=== PATIENT | female | born 1955 | race Caucasian/White ===

== ENCOUNTER 2019-10-07 10:29 | Outpatient (CLI) | payer MEDICARE, SELFPAY ==
--- NOTE | ~2019-10-07 | DEXA_ITS ---
BMD(1) Young-Adult(2) Age-Matched(3) Region (g/cm2) T-score Z-score WHO Classification L1 1.054 -0.7 0.9 Normal L2 1.021 -1.6 0.1 Osteopenia L3 0.994 -1.8 -0.1 Osteopenia L4 0.972 -1.9 -0.3 Osteopenia L1-L4 1.008 -1.5 0.1 Osteopenia Trend: L1-L4 Change vs Change vs Measured Age BMD(1) Baseline Previous Date (years) (g/cm2) (%) (%) 10/07/2019 [age] 1.008 baseline - 1 - Statistically 68% of repeat scans fall within 1SD (+- 0.010 g/cm2 for AP Spine L1-L4) 2 - [place] (Combined NHANES (ages 20-30) / [employer] (ages 20-40)) AP Spine Reference Population (v112) 3 - Matched for Age, Weight (females 25-100 kg), Ethnic 11 - World Health Organization - Definition of Osteoporosis and Osteopenia for Women: Normal = T-score at or above -1.0 SD; Osteopenia = T-score between -1.0 and -2.5 SD; Osteoporosis = T-score at or below -2.5 SD; (WHO definitions only apply when a young healthy Women reference database is used to determine T-scores.) Printed: 10/07/2019 11:27:22 AM (13.60)76:3.00:50.00:12.0 0.00:10.86 0.60x1.05 20.0:%Fat=33.2% 0.00:0.00 0.00:0.00 Filename: [id number] Scan Mode: Standard;OneScan 37.0 Altimet [id number] BMD(1) Young-Adult(2,7) Age-Matched(3) Region (g/cm2) T-score Z-score WHO Classification Neck Left 0.586 -3.2 -1.7 Osteoporosis Right 0.623 -3.0 -1.5 Osteoporosis Mean 0.605 -3.1 -1.6 Osteoporosis Difference 0.036 0.3 0.3 - Total Left 0.664 -2.7 -1.5 Osteoporosis Right 0.697 -2.5 -1.2 Osteoporosis Mean 0.681 -2.6 -1.3 Osteoporosis Difference 0.033 0.3 0.3 - Hip [place]berry Length Comparison (mm) (Right = 104.9 mm) (Mean = 104.2 mm) (Left = 106.4 mm) Trend: Total Mean Change vs Change vs Measured Age BMD(1) Baseline Previous Date (years) (g/cm2) (%) (%) 10/07/2019 64.6 0.681 baseline - 1 - Statistically 68% of repeat scans fall within 1SD (+- 0.010 g/cm2 for DualFemur Total) 2 - [place] (Combined NHANES (ages 20-30) / [employer] (ages 20-40)) Femur Reference Population (v112) 3 - Matched for Age, Weight (females 25-100 kg), Ethnic 7 - DualFemur Total T-score difference is 0.3. Asymmetry is None. 11 - World Health Organization - Definition of Osteoporosis and Osteopenia for Women: Normal = T-score at or above -1.0 SD; Osteopenia = T-score between -1.0 and -2.5 SD; Osteoporosis = T-score at or below -2.5 SD; (WHO definitions only apply when a young healthy Women reference database is used to determine T-scores.) Printed: 10/07/2019 11:27:23 AM (13.60); Filename: [id number]; Right Femur; 16.6:%Fat=33.9%; Neck Angle (deg)= 56; Scan Mode: Standard 37.0 uGy; Left Femur; 17.6:%Fat=36.7%; Neck Angle (deg)= 63; Scan Mode: Standard 37.0 uGy Issuu [id number] Dear Antonio Whelan, Your patient Kelsie Brown completed a BMD test on 10/07/2019 using the Issuu DXA System (analysis version: 13.60) manufactured by [employer]. The following summarizes the results of our evaluation. PATIENT BIOGRAPHICAL: Name: Kelsie Brown Date: 1955 Height: 63.0 in. Gender: Female
== END 2019-10-07 10:30 | disposition home or self-care (01) ==
LOC: CHSIMG 10:34
PROVIDERS: PCP Family Medicine; Visit Provider Family Medicine
DX: M81.0 Age-related osteoporosis without current pathological fracture (principal)
CPT/HCPCS: 77080

== ENCOUNTER 2020-03-02 12:39 | Emergency (ER) | payer MEDICARE, SELFPAY ==
[2020-03-02 12:40] VITALS: BP 126/67; PULSE 79; RESP 16; TEMP 36.8; O2SAT 96
[2020-03-02] MEDS: TETRACAINE HCL 0.5% OPHTH SOLN 4 ML BTL 1 DROP (13:25)
--- NOTE | 2020-03-02 13:40 | ED.GENADULT ---
HPI - General Adult General Chief complaint: Eye Problems Stated complaint: right eye dilated Source: patient and family Mode of arrival: ambulatory History of Present Illness HPI narrative: Kelsie was brought to the ED by her sister for a unilateral dilated right eye. It was first noticed by her sister 2 days ago. Since that time she has been covering it with her right hand when watching TV. Despite this she denies any pain, vision changes, nausea, vomiting, headache, chest pain, SOB, fevers or chills and trauma. Her sister contacted her PCP that told her to go to the ED. Related Data Home Medications Medication Instructions Recorded Confirmed alendronate 70 mg PO WEEKLY 03/02/20 03/02/20 lamotrigine 75 mg PO BID 03/02/20 03/02/20 lamotrigine 200 mg PO BID 03/02/20 03/02/20 phenytoin sodium extended 100 mg PO TID 03/02/20 03/02/20 zonisamide 500 mg PO DAILY 03/02/20 03/02/20 Allergies Allergy/AdvReac Type Severity Reaction Status Date / Time No Known Allergies Allergy Verified 03/02/20 13:19 Review of Systems Constitutional: Constitutional: Denies chills, Denies fever(s) and Denies weakness Eyes: Eyes: Reports as per HPI ENT: Reports system reviewed and no additional complaints, except as documented, Denies nasal congestion and Denies sore throat Comments: no rhinorrhea Cardiovascular: Cardiovascular: Reports no additional cardiovascular complaints Respiratory: Respiratory: Reports no additional respiratory complaints Gastrointestinal: Gastrointestinal: Reports no additional gastrointestinal complaints Genitourinary: Genitourinary: Reports no additional female genitourinary complaints Musculoskeletal: Musculoskeletal: Reports no additional musculoskeletal complaints Integumentary/Breasts: Skin/Breast: Reports system reviewed and no additional complaints, except as docu Neurologic: Reports system reviewed and no additional complaints, except as documented Psychiatric: Psychiatric: Reports no additional psychiatric complaints Endocrine: Endocrine: Reports no additional endocrine complaints Hematologic/Lymphatic: Hematologic/Lymphatic: Reports no additional hematologic/lymphatic complaints Allergic/Immunologic: Allergic/Immunologic: Reports no additional allergic/immunologic complaints ON LICENSE OF [facility] Family History Family History (Updated 03/02/20 @ 15:14 by Adolfo Townsend DO) Mother Glaucoma Exam Const: General: no acute distress and alert Orientation/consciousness: patient oriented x3 Limitations: No altered mental status HENMT: Other: Normocephalic, atraumatic. Eyes: Other: EOMI. Right eye had a slightly cloudy cornea, mild conjunctival injection, dilated non-reactive pupil. Tonometry was performed and showed a pressure of 52. Eye aquity was 20/40 on the left and 2070 on the right (per patient they were previously equal) Neck: Neck: normal visual inspection Resp: Effort & Inspection: normal respiratory effort, not labored, not tachypneic and no use of accessory muscles Cardio: Rate: regular rate Other: No edema Skin: General skin exam: normal color Rashes: no rashes Neuro: General: patient oriented x3, moves all extremities and CN's II-XI intact bilaterally Extrem: General: normal to inspection and no edema Psych: Mental Status: mental status grossly normal Other: Spoke very little and answered questions with one word answers. (per her sister she never went to school and is illiterate) Course Course Emergency Course: Kelsie was seen and evaluated. As PE (documented above) showed injection, cloudy cornea, decreased visual acuity, increased IOP at 52, and she had been seen covering her eye there was high concern for acute angle-closure glaucoma so Dr. Karen Tariq was contacted and recommended sending Kelsie to her clinic to be evaluated by her partner Alberto WOODS. She was given timolol eye drops and sent on her way for expert consultation. Vital Signs Vital signs: Vital Sig
[2020-03-02 13:46] VITALS: RESP 15; O2SAT 100
== END 2020-03-02 13:53 | disposition other institution (70) ==
PROVIDERS: Emergency Provider Family Medicine; PCP Nurse Practitioner Psychiatric/Mental Health
DX: H57.04 Mydriasis (principal)
CPT/HCPCS: 99283; A9270

== ENCOUNTER 2020-07-26 13:22 | Outpatient (CLI) | payer MEDICARE, SELFPAY ==
[2020-07-26 14:40] LABS: SARS-CoV-2 Ag Negative (Negative)
[2020-07-27 18:01] LABS: SARS-CoV-2 RNA PCR Positive
== END 2020-07-26 13:23 | disposition home or self-care (01) ==
PROVIDERS: PCP Family Medicine; Visit Provider Family Medicine
DX: U07.1 COVID-19 (principal)
CPT/HCPCS: 87426; 87635; C9803; U0003

== ENCOUNTER 2020-12-30 12:12 | Outpatient (CLI) | payer MEDICARE, SELFPAY ==
--- NOTE | ~2020-12-30 | MM_ITS ---
EXAMINATION: MM screening samir BI w anderson HISTORY: Screening TECHNIQUE: Craniocaudal and mediolateral oblique 3-D tomosynthesis images were obtained and synthetic 2-D images were generated. CAD analysis was submitted and interpreted. COMPARISON: Comparison to multiple prior studies sequentially, with oldest reviewed study dated 11/13. BREAST PARENCHYMAL COMPOSITION: There are scattered areas of fibroglandular density. FINDINGS: There is no evidence of suspicious mass, calcification, or architectural distortion to sugg est malignancy in either breast. There has been no suspicious interval change. IMPRESSION: 1. No mammographic evidence of malignancy. 2. Recommend routine screening mammography in one year. BI-RADS Category 1: Negative Reviewed, dictated and finalized at location A.
== END 2020-12-30 12:13 | disposition home or self-care (01) ==
LOC: CHSIMG 12:14
PROVIDERS: PCP Nurse Practitioner Psychiatric/Mental Health; Visit Provider Family Medicine
DX: Z12.31 Encounter for screening mammogram for malignant neoplasm of breast (principal)
CPT/HCPCS: 77063; 77067

== ENCOUNTER 2021-04-14 09:03 | Outpatient (CLI) | payer MEDICARE, SELFPAY ==
[2021-04-14 09:16] LABS: Basophils Absolute Auto 0.03 K/mm3 (0.00-0.10); Basophils Percent Auto 0.6 % (0.0-1.0); Eosinophils Absolute Auto 0.16 K/mm3 (0.02-0.50); Eosinophils Percent Auto 3.4 % (1.0-6.0); Hematocrit 40.1 % (35.0-42.0); Hemoglobin 12.8 g/dL (11.7-13.8); Immature Granulocyte Absolute 0.01 K/mm3 (0.00-0.00); Immature Granulocyte Percent A 0.2 % (0.0-0.0); Lymphocytes Absolute Auto 1.04 K/mm3 (1.10-4.50); Lymphocytes Percent Auto 21.9 % (18.0-42.0); Mean Corpuscular HGB Conc 31.9 g/dL (32.0-36.0); Mean Corpuscular Hemoglobin 31.9 pg (27.0-31.0); Mean Platelet Volume 8.6 fl (9.2-11.8); Monocytes Absolute Auto 0.46 K/mm3 (0.10-0.90); Monocytes Percent Auto 9.7 % (2.0-11.0); Neutrophils Percent Auto 64.2 % (50.0-70.0); Platelet Count Result 267 K/mm3 (150-420); Red Blood Count 4.01 M/mm3 (4.20-5.40); Red Cell Distribution Width 13.3 % (11.6-14.4); White Blood Count 4.7 K/mm3 (4.8-10.8)
[2021-04-14 09:33] LABS: Hemoglobin A1C 5.1 % (<5.7)
[2021-04-14 10:23] LABS: Alanine Aminotransferase 33 U/L (14-59); Albumin Level 4.1 g/dL (3.4-5.0); Alkaline Phosphatase 99 U/L (46-116); Anion Gap 10 mmol/L (8-16); Aspartate Amino Transferase 28 U/L (15-37); Bilirubin,Total 0.3 mg/dL (0.00-1.00); Blood Urea Nitrogen 15 mg/dL (7-18); Calcium 8.7 mg/dL (8.5-10.1); Carbon Dioxide 27 mmol/L (21-32); Chloride 106 mmol/L (98-108); Cholesterol 202 mg/dL (0-200); Estimated Glomerular Filt Rate > 60; Glucose 101 mg/dL (70-99); HDL Direct 94 mg/dL (40-60); LDL Cholesterol Calculated 100 mg/dL (<130); Osmolality Calculated 296 mOsm/kg (285-295); Potassium 4.1 mmol/L (3.5-5.1); Sodium 143 mmol/L (136-145); Thyroid Stimulating Hormone 1.32 uIU/mL (0.36-3.74); Total Protein 6.9 g/dL (6.4-8.2); Triglycerides 41 mg/dL (0-150)
== END 2021-04-14 09:04 | disposition home or self-care (01) ==
LOC: CHSLAB 09:06
PROVIDERS: PCP Nurse Practitioner Psychiatric/Mental Health; Visit Provider Nurse Practitioner Psychiatric/Mental Health
DX: R73.09 Other abnormal glucose (principal); Z13.220 Encounter for screening for lipoid disorders; Z13.29 Encounter for screening for other suspected endocrine disorder; Z13.6 Encounter for screening for cardiovascular disorders; R53.83 Other fatigue
CPT/HCPCS: 36415; 80053; 80061; 83036; 84443; 85025

== ENCOUNTER 2021-04-17 11:48 | Outpatient (CLI) | payer MEDICARE, SELFPAY ==
--- NOTE | ~2021-04-17 | XR_ITS ---
EXAMINATION: XR shoulder LT min 2V DATE: 04/17/2021 12:08 INDICATION: Left shoulder pain. TECHNIQUE: 4 views of left shoulder were obtained. COMPARISON: None. FINDINGS: There is dextroscoliosis of thoracic spine. No fracture. Glenohumeral joint is normal. Ther e is mild acromioclavicular joint osteoarthritis. IMPRESSION: 1. Mild left acromioclavicular joint osteoarthritis. Reviewed, dictated and finalized at location A.
== END 2021-04-17 11:49 | disposition home or self-care (01) ==
LOC: CHSIMG 11:49
PROVIDERS: PCP Nurse Practitioner Psychiatric/Mental Health; Visit Provider Nurse Practitioner Psychiatric/Mental Health
DX: M25.512 Pain in left shoulder (principal)
CPT/HCPCS: 73030

== ENCOUNTER 2021-04-21 10:17 | Outpatient (CLI) | payer MEDICARE, SELFPAY ==
--- NOTE | ~2021-04-21 | DEXA_ITS ---
Bone Density Report Name: Kelsie Brown Age: 66 Sex: Female Ethnicity: White Date of : 1955 Indication: postmenopausal osteoporosis; monitoring treatment; height loss; seizure disorder; Referring Provider: Ginette, Luis Study: Bone densitometry was performed. Exam Date: April 21, 2021 Accession number: [id number] Bone Density: Region BMD T-score Z-score Classification AP Spine(L1-L4) 0.877 -1.5 0.4 Osteopenia Femoral Neck (Left) 0.491 -3.2 -1.6 Osteoporosis Total Hip (Left) 0.617 -2.7 -1.3 Osteoporosis Femoral Neck (Right) 0.488 -3.3 -1.6 Osteoporosis Total Hip (Right) 0.647 -2.4 -1.1 Osteopenia Femoral Neck Mean 0.489 -3.2 -1.6 Osteoporosis Total Hip Mean 0.632 -2.5 -1.2 Osteoporosis World Health Organization criteria for BMD impression classify patients as: Normal (T-score at or above -1.0), Osteopenia (T-score between -1.0 and -2.5), or Osteoporosis (T-score at or below -2.5). 10-year Fracture Risk: FRAX not reported because: Some T-score for Spine Total or Hip Total or Femoral Neck at or below -2.5 Treated for osteoporosis Previous Exams: Region Exam Age BMD T-score BMD Change BMD Change Date g/cm2 vs Baseline vs Previous AP Spine (L1-L4) 04/21/2021 66 0.877 -1.5 -0.011 (-1.2%) -0.011 (-1.2%) 10/07/2019 64 0.888 -1.4 Total Hip(Left) 04/21/2021 66 0.617 -2.7 0.010 (1.6%)# 0.010 (1.6%)# 10/07/2019 64 0.608 -2.7 Total Hip(Right) 04/21/2021 66 0.647 -2.4 0.007 (1.0%)# 0.007 (1.0%)# 10/07/2019 64 0.640 -2.5 *Denotes significance at 95% confidence level, LSC for AP Spine = 0.022 g/cm2, LSC for Total Hip = 0.027 g/cm2 # Denotes dissimilar scan types or analysis methods Clinical Information Provided by Patient: Is being treated for osteoporosis Has used the following medications: Fosamax (i.e. alendronate), Vitamin D Has the following medical conditions: Any Seizure Disorders Patient maximum height was 64 No regular weight bearing exercise Drinks caffeinated beverages Impression: The patient has osteoporosis, based on the Right Femoral Neck T-score. No significant bone loss was observed. Discussion: PATIENT UNDER TREATMENT WITH NO SIGNIFICANT BMD LOSS SINCE LAST EXAM. In an untreated patient, BMD typically declines with age. A lack of decline or gain is usually a sign that treatment is efficacious and fracture risk is reduced. It is important to ask patients whether they are t
== END 2021-04-21 10:18 | disposition home or self-care (01) ==
LOC: CHSIMG 10:18
PROVIDERS: PCP Nurse Practitioner Psychiatric/Mental Health; Visit Provider Physician Assistant
DX: M81.0 Age-related osteoporosis without current pathological fracture (principal)
CPT/HCPCS: 77080

== ENCOUNTER 2022-01-17 12:11 | Outpatient (CLI) | payer MEDICARE, SELFPAY ==
--- NOTE | ~2022-01-17 | MM_ITS ---
EXAMINATION: MM screening samir BI w anderson HISTORY: Screening mammogram TECHNIQUE: Craniocaudal and mediolateral oblique 3-D tomosynthesis images were obtained and synthetic 2-D images were generated. CAD analysis was submitted and interpreted. COMPARISON: 11/2020, 01/14/2019, 01/08/2018 bilateral screening mammogram examinations BREAST PARENCHYMAL COMPOSITION: There are scattered areas of fibroglandular density. FINDINGS: 12/2020, 01/14/2019, 01/08/2018 bilateral screening mammogram examinations There is no eviden ce of suspicious mass, calcification, or architectural distortion to suggest malignancy in either javier ast. There has been no suspicious interval change. IMPRESSION: 1. No mammographic evidence of malignancy. 2. Recommend routine screening mammography in one year. BI-RADS Category 1: Negative Reviewed, dictated and finalized at location A.
== END 2022-01-17 12:12 | disposition home or self-care (01) ==
LOC: CHSIMG 12:14
PROVIDERS: PCP Family Medicine; Visit Provider Family Medicine
DX: Z12.31 Encounter for screening mammogram for malignant neoplasm of breast (principal)
CPT/HCPCS: 77063; 77067

== ENCOUNTER 2022-11-04 16:58 | Emergency (ER) | payer MEDICARE, SELFPAY ==
--- NOTE | ~2022-11-04 | XR_ITS ---
EXAM: XR forearm LT 2V DATE: 11/04/2022 17:33 HISTORY: DEFORMITY TO DISTAL FOREARM, TISSUE STICKING OUT MEDIALLY . COMPARISON: None available. FINDINGS: Decreased mineralization. Comminuted fracture of the distal left radius with 4 mm lateral displacement and mild lateral angulation. Comminuted distal left ulnar fracture with 3 mm lateral dis placement and possible extension to the joint line. No lytic or blastic lesion. Joint spaces are main tained. No erosion or periosteal change. Soft tissue swelling about the wrist. IMPRESSION: Mildly displaced and angulated comminuted fracture of the distal left radius. Mildly disp laced, comminuted, possibly intra-articular fracture of the distal left ulna. Reviewed, dictated and finalized at location K. IMPRESSION: Mildly displaced and angulated comminuted fracture of the distal le ft radius. Mildly displaced, comminuted, possibly intra-articular fracture of t he distal left ulna.
[2022-11-04 16:58] VITALS: BP 137/73; PULSE 75; RESP 16; TEMP 36; O2SAT 95
[2022-11-04] MEDS: ONDANSETRON INJ 4 MG/2 ML VIAL IV PUSH (17:36)
[2022-11-04] MEDS: MORPHINE SULFATE (*CRX) 4 MG/ML INJ IV PUSH (17:38)
[2022-11-04] MEDS: ceFAZolin SODIUM 1 GM VIAL 2 GM IV PUSH (17:39)
[2022-11-04] MEDS: TETANUS,DIPHTHERIA,AC PERTUSSIS ADULT 0.5 ML (ADACEL) IM (17:40)
--- NOTE | 2022-11-04 17:55 | ED.UPPEXIN ---
HPI - Extremity Injury (Upper) General Chief Complaint: Extremity Injury, Upper Stated Complaint: Fall/ left wrist injury Time Seen by Provider: 11/04/22 17:11 History of Present Illness HPI narrative: This is a 67-year-old female with past history of osteoporosis and seizures, who presents to the emergency department after a fall with left forearm pain and deformity. The patient states she was walking, when she tripped, landing with the left forearm extended. She felt immediate 8/10 sharp pain without radiation. She denies head injury or loss of consciousness. She denies pain elsewhere. She does not know the date of her last tetanus vaccination. Related Data Home Medications Medication Instructions Recorded Confirmed alendronate 70 mg tablet 70 mg PO WEEKLY 03/02/20 03/02/20 lamotrigine 200 mg tablet 200 mg PO BID 03/02/20 03/02/20 lamotrigine 25 mg tablet 75 mg PO BID 03/02/20 03/02/20 phenytoin sodium extended 100 mg 100 mg PO TID 03/02/20 03/02/20 capsule zonisamide 100 mg capsule 500 mg PO DAILY 03/02/20 03/02/20 Allergies Allergy/AdvReac Type Severity Reaction Status Date / Time No Known Allergies Allergy Verified 11/04/22 17:10 Review of Systems Review of Systems: CONSTITUTIONAL: Denies fever, chills, or sweats. CARDIOVASCULAR: Denies chest pain, palpitations, or edema. RESPIRATORY: Denies cough or dyspnea. GASTROINTESTINAL: Denies abdominal pain, nausea, vomiting, or diarrhea. GENITOURINARY: Denies dysuria or hematuria. SKIN: Denies rash or itching. MUSCULOSKELETAL: Left forearm pain denies back pain, joint pain, or myalgia. NEUROLOGIC: Denies headache, numbness, dizziness, or weakness. PSYCHIATRIC: Denies anxiety or depression. [facility] Past Medical History Medical History (Updated 11/04/22 @ 19:50 by Tye Villa MD) Osteoporosis Seizure disorder Family History Family History Mother Glaucoma Exam Narrative: GENERAL: Well-developed, well-nourished, and in no acute distress. HEAD: Normocephalic, atraumatic. EYES: PERRLA and EOMI. ENT: Nares clear, no rhinorrhea or epistaxis. Mucous membranes moist. Oropharynx without tonsillar hypertrophy exudate or other lesions. NECK: Supple. No adenopathy or masses. No carotid bruits or JVD. No midline spine tenderness to palpation, no step-off or crepitus CHEST: Clear to auscultation. No respiratory distress. No wheezes rales or rhonchi HEART: Regular rate and rhythm. No murmur heard. Normal peripheral pulses. ABDOMEN: Soft, nontender, nondistended, normal active bowel sounds. BACK: No midline spine tenderness to palpation, no step-off or crepitus EXTREMITIES: Lateral angulation of the left forearm just proximal to the wrist. There is a puncture wound at the lateral aspect of the left wrist. Normal range of motion of the fingers, elbow and shoulder. Normal range of motion of all other limbs. No edema. SKIN: Puncture wound as above. Skin otherwise warm, dry, no rash. NEURO: No focal deficits. Alert and oriented x3. PSYCH: Normal mood and affect. Course Course Emergency Course: 17:45 - Bedside review of x-rays demonstrate comminuted, displaced fractures of the distal radius and ulna. The patient's family requests orthopedic consultation at [facility]. A page was sent to orthopedic surgery. The patient was given 2g Ancef and tetanus. 18:20 - Discussed patient with [facility] orthopedic surgeon, Dr. Mercer, who accepts transfer. A sugar-tong splint was placed on the left arm by nursing and network operations technician staff. The left arm is neurovascularly intact after placement. The patient tolerated procedure well. Please see procedure note. Discussed risks and benefits of transfer with the patient and her family. They voiced understanding and the plan. All questions answered to their satisfaction. Vital Signs Vital signs: Vital Signs Temperature 96.8 F L 11/04/22 16:58 Puls
[2022-11-04 17:57] VITALS: BP 128/61; PULSE 85; RESP 16; O2SAT 96
[2022-11-04 18:39] VITALS: BP 130/75; PULSE 85; RESP 16; TEMP 36.8; O2SAT 99
[2022-11-04 19:01] VITALS: BP 131/61; PULSE 82; RESP 16; O2SAT 99
--- NOTE | 2022-11-04 19:53 | PC.NURSE ---
pt left with [facility]. pt left with a stable gait, stable vitals and in no apparent distress.
== END 2022-11-04 19:54 | disposition short-term general hospital (02) ==
PROVIDERS: Emergency Provider Preventive Medicine Aerospace Medicine; PCP Family Medicine
DX: S52.602B Unspecified fracture of lower end of left ulna, initial encounter for open fracture type I or II (principal); S52.502A Unspecified fracture of the lower end of left radius, initial encounter for closed fracture; Z23 Encounter for immunization; W01.0XXA Fall on same level from slipping, tripping and stumbling without subsequent striking against object, initial encounter
CPT/HCPCS: 29125; 73090; 90471; 90715; 96374; 96375; 99285; A4565; J0690; J2270; J2405

== ENCOUNTER 2023-01-07 09:52 | Outpatient (RCR) | payer MEDICARE, SELFPAY ==
--- NOTE | 2023-01-07 12:54 | OTOPEVAL1 ---
Assessment and note entered by Lizbeth Caputo OT Evaluation Information Assessment Status Evaluation Diagnosis Type I or II open fracture of left radius and ulna Onset 10/23/2022 Subjective Information The patient stated that she does not have much pain in L wrist and no pain during PROM. The patient's two sisters came with patient during the initial evaluation to assist with explaining the patient's injury. The patient's sisters report that she does not complain of pain often and has a high pain tolerance. The patient stated that she likes to work on crossword puzzles at home and is left handed. The patient's sister helps her during the night time and helps with meals at the patient does not cook. The patient's sisters report that she has a difficult time opening containers like soda tab, cans, and pull tabs. Reported Pain Level Pain Score 0: Self Report Assessment OT Clinical Summary The patient is a 67 year old female who was referred to outpatient OT due to a distal radius and ulnar fracture. The patient's PMH include but is not limited to seizures. The patient now demonstrates deficits in television mechanic/pinch strength and AROM/strength of L wrist. The patient previously demonstrated WNL wrist ROM, strength and television mechanic/ pinch. The patient requires assistance from family for medication management due to limited function of wrist and hand at this time. The patient requires skilled OT to address these deficits and return to PLOF. Plan of Care Interventions Therapeutic Exercise,Manual Therapy,Neuro Re- education,Therapeutic Activities,Hot Pack/Cold Pack,Self-Care/Home Management OT Services Indicated Yes Treatment Frequency and 2x/week for 4 weeks. Duration These treatments will address the objective and functional deficits as defined above. The patient will be advanced safely and appropriately in order for the patient to progress towards his/her prior level of function. Additional exercises will be introduced and as well as a comprehensive home exercise program upon discharge, if needed, ?to ensure carryover of functional gains achieved in the clinic. This treatment plan has been reviewed and agreement upon by the patient.
--- NOTE | 2023-01-15 10:35 | OTOPDC ---
Assessment and note entered by Lizbeth Caputo OT Evaluation Information Assessment Status Discharge Reported Pain Level Pain Score 0: Self Report Assessment OT Clinical Summary The patient demonstrates significant improvement in wrist AROM, strength, fishing instructor/pinch strength and knowledge of UE HEP. The patient reports no pain in wrist and that she is able to do all of her daily activities with no diffiuclty in her wrist. The patient demonstrates WNL fishing instructor/pinch strength and AROM. The patient is discharged from OT due to meeting all goals and demonstrating good mobility and strength of L wrist. Plan of Care OT Services Indicated No
== END 2023-01-15 11:32 | disposition home or self-care (01) ==
LOC: CHSOT 09:52
PROVIDERS: Visit Provider Orthopaedic Surgery
DX: S52.92XB Unspecified fracture of left forearm, initial encounter for open fracture type I or II (principal); S52.202B Unspecified fracture of shaft of left ulna, initial encounter for open fracture type I or II
CPT/HCPCS: 97110; 97140; 97165; 97530

== ENCOUNTER 2023-03-27 09:55 | Outpatient (CLI) | payer MEDICARE, SELFPAY ==
--- NOTE | ~2023-03-27 | MM_ITS ---
EXAMINATION: MM screening [facility] BI w anderson HISTORY: Screening mammogram TECHNIQUE: Craniocaudal and mediolateral oblique 3-D tomosynthesis images were obtained and synthetic 2-D images were generated. CAD analysis was submitted and interpreted. COMPARISON: 01/17/2022, 12/30/2020, 01/14/2019 BREAST PARENCHYMAL COMPOSITION: There are scattered areas of fibroglandular density. FINDINGS: No suspicious mass, calcification, or architectural distortion are identified in either javier ast to suggest malignancy. There has been no suspicious interval change. IMPRESSION: 1. No mammographic evidence of malignancy. 2. Recommend routine screening mammography in one year. BI-RADS Category 1: Negative Reviewed, dictated and finalized at location A.
== END 2023-03-27 09:56 | disposition home or self-care (01) ==
LOC: CHSIMG 09:56
PROVIDERS: PCP Registered Nurse; Visit Provider Registered Nurse
DX: Z12.31 Encounter for screening mammogram for malignant neoplasm of breast (principal)
CPT/HCPCS: 77063; 77067

== ENCOUNTER 2023-09-05 11:55 | Outpatient (CLI) | payer MEDICARE, SELFPAY ==
--- NOTE | ~2023-09-05 | DEXA_ITS ---
Bone Density Report Name: PAYAM NEVAREZ Age: 68 Sex: Female Ethnicity: White Date of : 1955 Indication: postmenopausal; screening for osteoporosis; height loss; prior fracture; seizure disorder; Referring Provider: CHRISTIANA, JORDAN Study: Bone densitometry was performed. Exam Date: September 05, 2023 Accession number: [id number] Bone Density: Region BMD T-score Z-score Classification AP Spine(L1-L4) 0.897 -1.4 0.7 Osteopenia Femoral Neck (Left) 0.491 -3.2 -1.5 Osteoporosis Total Hip (Left) 0.630 -2.6 -1.1 Osteoporosis Femoral Neck (Right) 0.479 -3.3 -1.6 Osteoporosis Total Hip (Right) 0.644 -2.4 -1.0 Osteopenia Femoral Neck Mean 0.485 -3.3 -1.5 Osteoporosis Total Hip Mean 0.637 -2.5 -1.0 Osteoporosis World Health Organization criteria for BMD impression classify patients as: Normal (T-score at or above -1.0), Osteopenia (T-score between -1.0 and -2.5), or Osteoporosis (T-score at or below -2.5). 10-year Fracture Risk: FRAX not reported because: Some T-score for Spine Total or Hip Total or Femoral Neck at or below -2.5 Treated for osteoporosis Clinical Information Provided by Patient: Has had a low trauma fracture Is being treated for osteoporosis Has used the following medications: Fosamax (i.e. alendronate), Vitamin D Has the following medical conditions: Any Seizure Disorders Patient maximum height was 64 Menopause Age: 49 No regular weight bearing exercise Drinks caffeinated beverages Onset of menses at age 15 Number of children 0 Impression: The patient has established osteoporosis, based on the Right Femoral Neck T-score and the existence of a prior fracture. The patient has risk factors, including: previous fracture. Discussion: It is important to ask patients whether they are taking their medications and to encourage continued and appropriate compliance with their osteoporosis therapies to reduce fracture risk. It is also important to review their risk factors and encourage appropriate calcium and vitamin D intakes, exercise, fall prevention and other lifestyle measures. Follow-Up: Consider a repeat BMD and Vertebral Fracture Assessment (VFA) exam in 2 years or sooner if medically necessary, to reassess this patient's status. Reported by: Dr. Alvin Ngo on 09/05/2023 12:30:00 PM. Reviewed, dictated and finalized at location ADeshaun LUND
== END 2023-09-05 11:56 | disposition home or self-care (01) ==
LOC: CHSIMG 11:57
PROVIDERS: PCP Registered Nurse; Visit Provider Registered Nurse
DX: Z78.0 Asymptomatic menopausal state (principal); M85.88 Other specified disorders of bone density and structure, other site; M81.0 Age-related osteoporosis without current pathological fracture
CPT/HCPCS: 77080

== ENCOUNTER 2023-12-09 11:01 | Outpatient (CLI) | payer MEDICARE, SELFPAY ==
--- NOTE | ~2023-12-09 | XR_ITS ---
AP view of the pelvis, and AP and lateral views of the left hip Clinical history: Pain Findings: No acute fracture or dislocation is seen. Osseous alignment is anatomic. Bilateral hip and SI joint spaces are preserved. Soft tissues are unremarkable. Impression: No significant abnormality is seen. Reviewed, dictated and finalized at [facility]. Impression: No significant abnormality is seen.
--- NOTE | ~2023-12-09 | XR_ITS ---
Lumbosacral Spine: AP and lateral views Clinical History: Pain Findings: The normal lordotic curve is maintained. The vertebral bodies and posterior elements are i ntact. There is advanced degenerative disc narrowing at L5-S1. There is moderate facet arthropathy th roughout the lumbar spine. The sacroiliac joints are normally outlined. Impression: [id number] degenerative spondylosis, as above. Reviewed, dictated and finalized at location M. Impression: [id number] degenerative spondylosis, as above.
== END 2023-12-09 11:02 | disposition home or self-care (01) ==
LOC: CHSIMG 11:03
PROVIDERS: PCP Family Medicine; Visit Provider Registered Nurse
DX: M25.552 Pain in left hip (principal); M43.06 Spondylolysis, lumbar region
CPT/HCPCS: 72100; 73502

== ENCOUNTER 2023-12-27 14:27 | Outpatient (CLI) | payer MEDICARE, SELFPAY ==
--- NOTE | ~2023-12-27 | XR_ITS ---
EXAM: XR hip LT 2V w AP pelvis DATE: 12/27/2023 14:49 HISTORY: Lt. hip/pelvic pain x2 weeks,NKI . COMPARISON: 12/09/2023. FINDINGS: Decreased mineralization. No fracture or dislocation. Lumbar degenerative disc disease. Mi ld degenerative changes in the bilateral hips. IMPRESSION: Mild bilateral hip osteoarthritis. Reviewed, dictated and finalized at location K.
== END 2023-12-27 14:28 | disposition home or self-care (01) ==
LOC: CHSIMG 14:29
PROVIDERS: PCP Family Medicine; Visit Provider Registered Nurse
DX: R10.2 Pelvic and perineal pain (principal); M25.551 Pain in right hip; M16.0 Bilateral primary osteoarthritis of hip
CPT/HCPCS: 73502

== ENCOUNTER 2023-12-28 13:11 | Emergency (ER) | payer MEDICARE, SELFPAY ==
--- NOTE | ~2023-12-28 | XR_ITS ---
XR femur LT min 2V DATE: 12/28/2023 13:56 INDICATION: Left hip pain radiating down left femur. Left eye swelling. TECHNIQUE: AP and lateral views COMPARISON: None FINDINGS: No fracture or dislocation, periosteal reaction or bone destruction of the left femur. Slight periarticular spurring of the patella. Osteopenia. IMPRESSION: Osteopenia Slight periarticular patellar spurring consistent with mild osteoarthritis Reviewed, dictated and finalized at location A.
[2023-12-28 13:11] VITALS: BP 139/92; PULSE 109; RESP 18; TEMP 36.4; O2SAT 94
--- NOTE | 2023-12-28 13:23 | ED.LOWEXIN ---
HPI - Extremity Injury (Lower) General Chief Complaint: Extremity Injury, Lower Stated Complaint: left leg pain Source: patient Mode of arrival: ambulatory Limitations: no limitations History of Present Illness HPI Narrative: 68-year-old female with a history of seizure, osteoporosis, Talipers varus had a fall few weeks ago. She fell again 2 days ago and developed -- left thigh and left leg swelling. no obvious injury to the thigh. The patient had x-rays of the left hip and pelvis which did not show any acute findings. No fever or chills. Onset (ago): day(s) ( Three days) Place: home Severity: moderate Relieving factors: nothing Exacerbating factors: weight bearing Context: direct blow Other symptoms: none Related Data Home Medications Medication Instructions Recorded Confirmed alendronate 70 mg tablet 70 mg PO WEEKLY 03/02/20 03/02/20 lamotrigine 200 mg tablet 200 mg PO BID 03/02/20 03/02/20 lamotrigine 25 mg tablet 75 mg PO BID 03/02/20 03/02/20 phenytoin sodium extended 100 mg 100 mg PO TID 03/02/20 03/02/20 capsule zonisamide 100 mg capsule 500 mg PO DAILY 03/02/20 03/02/20 Allergies Allergy/AdvReac Type Severity Reaction Status Date / Time No Known Allergies Allergy Verified 11/04/22 17:10 Review of Systems Constitutional: Constitutional: Reports as per HPI and Reports no additional constitutional complaints Eyes: Eyes: Reports as per HPI and Reports no additional eye complaints ENT: Reports system reviewed and no additional complaints, except as documented and Reports as per HPI Cardiovascular: Cardiovascular: Reports as per HPI and Reports no additional cardiovascular complaints Respiratory: Respiratory: Reports as per HPI and Reports no additional respiratory complaints Gastrointestinal: Gastrointestinal: Reports as per HPI and Reports no additional gastrointestinal complaints Genitourinary: Genitourinary: Reports no additional female genitourinary complaints and Reports as per HPI Musculoskeletal: Musculoskeletal: Reports no additional musculoskeletal complaints and Reports as per HPI Comments: left thigh and leg swelling. Integumentary/Breasts: Skin/Breast: Reports system reviewed and no additional complaints, except as docu and Reports as per HPI Neurologic: Reports system reviewed and no additional complaints, except as documented and Reports as per HPI Psychiatric: Psychiatric: Reports no additional psychiatric complaints and Reports as per HPI Endocrine: Endocrine: Reports no additional endocrine complaints and Reports as per HPI Hematologic/Lymphatic: Hematologic/Lymphatic: Reports no additional hematologic/lymphatic complaints and Reports as per HPI Allergic/Immunologic: Allergic/Immunologic: Reports no additional allergic/immunologic complaints and Reports as per HPI PMFSH Past Medical History Medical History Osteoporosis Seizure disorder Family History Family History Mother Glaucoma Exam Const: General: no acute distress Nutritional Appearance: well nourished Orientation/consciousness: patient oriented x3 Limitations: no limitations HENMT: Head: normal to inspection Ears: external ears normal Face/Nose/Sinus: Normal external nose present Mouth: Yes Normal oral and palatal mucosa present Throat: posterior oropharynx normal Eyes: Conjunctivae: conjunctivae normal Pupils: Equal, round and reactive pupils present EOM: EOMs intact bilaterally Direct Ophthalmoscopy: no photophobia Neck: Neck: normal visual inspection, no lymphadenopathy and no meningeal signs Chest: Chest palpation & inspection: normal inspection of the chest Resp: Effort & Inspection: normal respiratory effort Auscultation: clear to auscultation bilaterally Cardio: Rate: regular rate Rhythm: regular rhythm GI: GI Palp: Yes Soft to palpation Auscultation: normal bowel soun
--- NOTE | 2023-12-28 13:51 | PC.NURSE ---
pt to xray via wheelchair and returned to room.
[2023-12-28 14:16] LABS: Basophils Absolute Auto 0.03 K/mm3 (0.00-0.10); Basophils Percent Auto 0.3 % (0.0-1.0); Eosinophils Absolute Auto 0.07 K/mm3 (0.02-0.50); Eosinophils Percent Auto 0.7 % (1.0-6.0); Hematocrit 33.4 % (35.0-42.0); Hemoglobin 11.2 g/dL (11.7-13.8); Immature Granulocyte Absolute 0.06 K/mm3 (0.00-0.00); Immature Granulocyte Percent A 0.6 % (0.0-0.0); Lymphocytes Absolute Auto 0.35 K/mm3 (1.10-4.50); Lymphocytes Percent Auto 3.3 % (18.0-42.0); Mean Corpuscular HGB Conc 33.5 g/dL (32-36); Mean Corpuscular Hemoglobin 31.2 pg (27.0-31.0); Mean Platelet Volume 8.7 fl (9.2-11.8); Monocytes Absolute Auto 1.19 K/mm3 (0.10-0.90); Monocytes Percent Auto 11.3 % (2.0-11.0); Neutrophils Absolute Auto 8.79 K/mm3 (1.70-7.20); Neutrophils Percent Auto 83.8 % (50.0-70.0); Platelet Count Result 223 K/mm3 (150-420); Red Blood Count 3.59 M/mm3 (4.20-5.40); Red Cell Distribution Width 13.2 % (11.6-14.4); White Blood Count 10.5 K/mm3 (4.8-10.8)
[2023-12-28 14:31] LABS: Alanine Aminotransferase 16 U/L (14-59); Albumin Level 2.9 g/dL (3.4-5.0); Alkaline Phosphatase 101 U/L (46-116); Anion Gap 14 mmol/L (4-12); Aspartate Amino Transferase 22 U/L (15-37); Bilirubin,Total 0.3 mg/dL (0.00-1.00); Blood Urea Nitrogen 22 mg/dL (7-18); Calcium 8.8 mg/dL (8.5-10.1); Carbon Dioxide 24 mmol/L (21-32); Chloride 98 mmol/L (98-108); Estimated CRCL calculation 31 ml/min; Estimated Glomerular Filt Rate 43; Glucose 114 mg/dL (70-99); Osmolality Calculated 286 mOsm/kg (285-295); Potassium 3.4 mmol/L (3.5-5.1); Sodium 136 mmol/L (136-145); Total Protein 6.6 g/dL (6.4-8.2)
[2023-12-28 14:37] LABS: Lactic Acid Reflex 0.9 mmol/L (0.4-2.0)
[2023-12-28 14:40] LABS: INR 1.1; Partial Thromboplastin Time 27.2 Sec (23.9-30.70); Prothrombin Time 11.8 Seconds (9.50-12.1)
[2023-12-28 14:46] LABS: D Dimer 11.91 mg/L (0.19-0.50)
--- NOTE | 2023-12-28 16:02 | PC.NURSE ---
1505 call to [facility] for transport to [place] for ultrasound. [facility] unavailable at this time 1510 call to [facility] for transport to [place], [facility] not available. awaiting availability. explained delay to pt and sister. 1605 call to [facility] for transport . awaiting acceptance of transport. 1610 call from Juan Miguel, [facility]. will be available for transport , awaiting arrival of [facility].
--- NOTE | 2023-12-28 16:16 | PC.NURSE ---
pt resting per cot, updated on ems arrival soon.
[2023-12-28] MEDS: ENOXAPARIN 100 MG/ML SYRINGE 65 MG SUB-Q (16:21)
--- NOTE | 2023-12-28 16:32 | PC.NURSE ---
pt departed [facility] enroute to [facility].
--- NOTE | 2023-12-28 16:47 | PC.NURSE ---
call placed to [facility] to notify pt coming with [facility] for ultrasound services. house carpenter, Irineo, notified also pt coming,
--- NOTE | 2023-12-28 18:03 | PC.NURSE ---
pt returned to er with [facility], report reviewed per dr romo.
[2023-12-28 18:23] VITALS: BP 143/86; PULSE 106; RESP 16; O2SAT 97
== END 2023-12-28 18:34 | disposition home or self-care (01) ==
PROVIDERS: Emergency Provider Internal Medicine Critical Care Medicine; PCP Family Medicine
DX: I82.442 Acute embolism and thrombosis of left tibial vein (principal); I82.452 Acute embolism and thrombosis of left peroneal vein; W19.XXXA Unspecified fall, initial encounter; G40.909 Epilepsy, unspecified, not intractable, without status epilepticus; M81.0 Age-related osteoporosis without current pathological fracture; Q66.30 Other congenital varus deformities of feet, unspecified foot
CPT/HCPCS: 36415; 73552; 80053; 83605; 85025; 85380; 85610; 85730; 96372; 99283; J1650

== ENCOUNTER 2023-12-28 17:06 | Outpatient (CLI) | payer OTHER, SELFPAY ==
--- NOTE | ~2023-12-28 | US_ITS ---
EXAMINATION: US venous doppler [facility] DATE: 12/28/2023 17:35 INDICATION: Left lower limb swelling and pain. TECHNIQUE: Grayscale ultrasound images without and with compression and Doppler ultrasound images of the left lower extremity veins were obtained. COMPARISON: None. FINDINGS: The visualized portions of left common femoral vein, profunda (deep) femoral vein, femoral vein, popl iteal vein, and greater saphenous vein outflow are patent. There is thrombus in the left posterior ti bial and peroneal veins. IMPRESSION: 1. Deep vein thrombosis involving the left posterior tibial and peroneal veins. Reviewed, dictated and finalized at location E. IMPRESSION: 1. Deep vein thrombosis involving the left posterior tibial and peroneal veins .
== END 2023-12-28 17:07 | disposition home or self-care (01) ==
LOC: ANHIMG 17:13
PROVIDERS: PCP Family Medicine; Visit Provider Internal Medicine Critical Care Medicine
DX: I82.442 Acute embolism and thrombosis of left tibial vein (principal); I82.452 Acute embolism and thrombosis of left peroneal vein
CPT/HCPCS: 93971

== ENCOUNTER 2023-12-31 08:31 | Inpatient (IN) | payer MEDICARE, SELFPAY ==
[2023-12-31] VITALS (21 sets, daily range): BP systolic 107–151; BP diastolic 64–103; PULSE 97–120; RESP 11–28; TEMP 35.7–36.6; O2SAT 94–100; BMI 23.3
--- NOTE | ~2023-12-31 | CT_ITS ---
EXAMINATION: CT guide absc cath placement DATE: 01/03/2024 17:19 INDICATION: Right upper quadrant abdominal fluid collection. TECHNIQUE: The skin overlying the abdomen was prepped and draped in usual sterile fashion. Anestheti c was administered with 1% lidocaine subcutaneously. An 18 gauge trochar needle was inserted into the right upper quadrant peritoneal fluid collection with CT guidance. The needle was exchanged over a w kim for 6 Kosovan, 8 Kosovan, and 9 Kosovan dilators and then for an 8.5 Kosovan pigtail catheter. The ca theter was stitched to the skin, and a sterile dressing was applied. The mA was adjusted according to patient size. Iterative reconstruction technique was employed. The dose-length product was 243.56 mG y-cm. There were no immediate complications. FINDINGS: CT images demonstrate the catheter within the fluid collection. 5 mL fluid was aspirated fo r testing. IMPRESSION: 1. Successful CT-guided right upper quadrant peritoneal abscess drainage. 2. 5 mL red fluid was sent for aerobic and anaerobic cultures. Reviewed, dictated and finalized at location A.
--- NOTE | ~2023-12-31 | CT_ITS ---
EXAMINATION: CT chest abdomen pelvis wo con DATE: 01/08/2024 09:44 INDICATION: Septic shock. Recent abdominal surgery. TECHNIQUE: Computed tomography (CT) of the chest, abdomen, and pelvis was performed without intraveno us contrast. Automated exposure control and iterative reconstruction technique were employed. The dos e-length product was 642.80 mGy-cm. COMPARISON: None FINDINGS: CHEST CT: Endotracheal tube tip 3.7 cm above the yeimy. Right internal jugular central venous catheter with di stal tip at the superior cavoatrial junction. Small bilateral posterior layering pleural effusions. C onsolidation with air bronchograms in the dependent aspect of the bilateral lower lobes which could r epresent atelectasis and/or pneumonia. Mild discoid atelectasis in the right middle and left lower lo bes. Heart size is normal. No pericardial effusion. Thoracic aorta is normal in caliber. Mediastinal lymphadenopathy including a 3.0 x 1.3 cm precarinal lymph node, a 1.7 x 1.3 cm right paratracheal lym ph node and 1.2 x 1.0 cm anterior mediastinal lymph node which could be either reactive or metastatic . Mild thoracic spondylosis. ABDOMEN/PELVIS CT: Nasogastric tube with tip and proximal side-port in the body of the stomach. Lozada catheter within th e decompressed bladder. Right femoral vein central venous catheter with distal tip at the cephalad ri ght common iliac vein. Skin dejuan along a supraumbilical midline abdominal surgical wound. Gallblad suhail is distended but without evident gallbladder wall thickening. Liver, spleen and pancreas are norm al. There is nodular thickening of the bilateral adrenal glands. There is persistent moderate left hydronephrosis. Decrease in now mild right hydronephrosis. There ar e 3 right renal stones the largest measuring 3 mm in maximal diameter. One of the prior 2 mm right re nal stones as advanced into the mid right ureter near level of the aortic bifurcation. Uterus is unre markable. There are no dilated loops of bowel to suggest obstruction. There are scattered loculated appearing and nonloculated appearing fluid along with extraluminal gas in the abdomen and pelvis. This includes a large loculated gas and fluid collections measures 16.6 x 6.7 x 14.5 cm positioned in the anterior upper abdomen and exerts mass effect upon the more posterior left hepatic lobe. There is a smaller loculated gas and fluid collection along the anterior wall of the gastric body where there appears be a 5 mm defect in the gastric wall seen on axial series 3, robinson ges 127-130 suggesting persistent perforated gastric ulcer post reported recent prior repair. At the bilateral paracolic gutters there appears to be some dependently layering high attenuation material s uggesting some hemoperitoneum. There are multiple enlarged lymph nodes primarily in the pelvis and within the mesentery. There is al so extensive body wall and mesenteric edema. Severe spondylosis at the lumbosacral junction with othe rwise mild lumbar spondylosis. No suspicious lytic or blastic bone lesions. IMPRESSION: 1. Likely persistent 5 mm diameter perforated gastric ulcer with interval increase in nonloculated an d potentially loculated fluid and gas throughout the abdomen and pelvis which has significantly incre ased since the prior studies. There is some dependent increased density at the paracolic gutters whic h suggests possibly some associated hemoperitoneum. 2. Unchanged moderate left and decreased mild right hydronephrosis with no discrete obstructing lesio n on the left. There is right nephrolithiasis with a 2 mm stone in the mid right ureter however the h ydronephrosis appears decreased since the prior study at which time the stone was not present at the ureter. 3. Small bilateral pleural effusions with dependent consolidation the bilateral lower lobes most like ly atelectasis although superimposed pneumonia not excludable. 4. Lymphadenopathy
--- NOTE | ~2023-12-31 | XR_ITS ---
XR hip BI 2V w AP pelvis 01/01/2024 10:49 Indication: Status post fall. Hip pain. Procedure: AP pelvis and 2 views each hand Comparison: 12/28/2023 Findings: Mild osteoarthritis of the hips. There is a drainage catheter overlying the abdomen. There is laparotomy staple line. Moderate lumbar spondylosis. No acute fracture or traumatic malalignment. Pelvic rings are intact. Sacral foramen are symmetric. Impression: 1: No acute abnormality of the pelvis or hips. Reviewed, dictated and finalized at location B. Impression: 1: No acute abnormality of the pelvis or hips.
--- NOTE | ~2023-12-31 | CT_ITS ---
EXAMINATION: CT brain wo con DATE: 01/04/2024 11:19 INDICATION: Fall. TECHNIQUE: Computed tomography (CT) of the head was performed without intravenous contrast. The mA wa s adjusted according to patient size. Iterative reconstruction technique was employed. Exam dose: 12 10.67 mGy-cm total exam DLP. COMPARISON: None FINDINGS: Examination is very limited due to extensive motion artifact despite 2 sets of images being obtained. Bilateral vertebral artery and carotid siphon internal carotid artery calcifications. No obvious intracranial mass lesion or hemorrhage or midline shift or mass effect, subdural or epidur al hematoma is evident on this limited examination. No obvious skull fracture or bone destruction. Paranasal sinuses and mastoid air cells appear essenti ally unremarkable. IMPRESSION: Very limited examination due to motion artifact No obvious acute intracranial finding Cerebral atherosclerosis Reviewed, dictated and finalized at [facility]. Reviewed, dictated and finalized at location A.
--- NOTE | ~2023-12-31 | XR_ITS ---
Portable chest x-ray Comparison: 01/07/2024 Clinical History: Respiratory failure Findings: Endotracheal tube, NG tube, and right IJ line are in place. There is probable small right pleural effusion with mild bibasilar haziness. Cardiomediastinal silhouette is stable. Bones and sof t tissues are unremarkable. Impression: Small right pleural effusion with mild bibasilar pulmonary edema/atelectasis. Support tubes, as above. Reviewed, dictated and finalized at location . Impression: Small right pleural effusion with mild bibasilar pulmonary edema/atelectasis. Support tubes, as above.
--- NOTE | ~2023-12-31 | NM_ITS ---
NM lung vent and perfusion INDICATION: Possible blood clot in lung. TECHNIQUE: The patient inhaled aerosolized 12.9 mCi xenon-133. Following ventilation scan, 4.7 mCi T c 99m MAA was injected intravenously for perfusion images. Multiple images were then acquired. COMPARISON: No prior studies for comparison. FINDINGS: There is moderate matched defect in the right lower thorax on the posterior images. No ludwig esponding chest x-ray is available for comparison. No significant retention of tracer on washout imag es. No other ventilation or perfusion defects are identified. IMPRESSION: 1: Moderate matched ventilation/perfusion defect right lower thorax. Recommend correlation with chest x-ray. Reviewed, dictated and finalized at location B.
--- NOTE | ~2023-12-31 | XR_ITS ---
Portable chest x-ray Comparison: 01/05/2024 Clinical History: Hypoxia Findings: NG tube and right IJ line are in place. Small right pleural effusion present. There is mil d bibasilar pulmonary edema/atelectasis. Cardiomediastinal silhouette is stable. Bones and soft tiss ues are unremarkable. Impression: Right pleural effusion with mild bibasilar pulmonary edema/atelectasis. Support tubes, as above. Reviewed, dictated and finalized at location . Impression: Right pleural effusion with mild bibasilar pulmonary edema/atelectasis. Support tubes, as above.
--- NOTE | ~2023-12-31 | XR_ITS ---
XR chest 1V portable 01/05/2024 09:13 Indication: Pneumonia Procedure: AP portable chest Comparison: 10/02/2013 Findings: Bilateral airspace disease, pneumonia versus edema. Possible small effusion. No pneumothora x. Heart size normal. Impression: 1: Bilateral asymmetric airspace disease, left greater than right, pneumonia versus edema. Reviewed, dictated and finalized at location B. Impression: 1: Bilateral asymmetric airspace disease, left greater than right, pneumonia ve rsus edema.
--- NOTE | ~2023-12-31 | XR_ITS ---
XR hip BI 2V w AP pelvis DATE: 01/04/2024 11:26 INDICATION: Fall. TECHNIQUE: AP pelvis. AP and lateral views of each hip. COMPARISON: 01/01/2024 pelvis and bilateral hips FINDINGS: Osteopenia. Severe degenerative disc disease at L5-S1. The pubic symphysis and sacroiliac joints are intact. No pelvic fracture or bone destruction. Mild bilateral hip osteoarthritis. No fracture or dislocation, avascular necrosis or bone destruction of either hip is detected. Laparotomy skin dejuan are noted overlying the midabdomen. A pigtail catheter overlies the lateral r ight lower quadrant of the abdomen. IMPRESSION: Mild bilateral hip osteoporosis. No pelvic or hip fracture Severe degenerative disc disease at L5-S1 Reviewed, dictated and finalized at location A.
--- NOTE | ~2023-12-31 | CT_ITS ---
EXAMINATION: CT abdomen pelvis wo con DATE: 12/31/2023 09:57 INDICATION: Epigastric abdominal pain. Nausea. TECHNIQUE: Computed tomography (CT) of the abdomen and pelvis was performed without intravenous contr ast. Automated exposure control and iterative reconstruction technique were employed. The dose-length product was 535.58 mGy-cm. COMPARISON: None. FINDINGS: The visualized portions of the lung bases demonstrate mild atelectasis. There are small ple ural effusions, right worse than left. The heart size is normal. There are coronary artery calcificat ions. No pericardial effusion. There is a 10 mm cyst in the liver. Periportal edema is noted. The gal lbladder is distended. The spleen and pancreas are normal. There are masses in the adrenal glands elsy suring up to 17 mm on the left measuring low attenuation, consistent with adenomas. There are 3 mm an d 2 mm stones in right kidney. There is moderate bilateral hydronephrosis. There is a 3 mm stone in t he left kidney. There are no dilated loops of bowel. The appendix is not visualized. There is a large volume of ascites. There is gastrohepatic, periceliac, mesenteric, left para-aortic, aortocaval, and bilateral external iliac lymphadenopathy. For example, a left external iliac node measures 4.8 x 2.6 cm. There is free intraperitoneal gas. There is edema of the intra-abdominal fat and body wall fat. There is severe lower lumbar lumbar spondylosis. IMPRESSION: 1. Free intraperitoneal gas, consistent with perforated viscus. I called this result to Dr. Mckeon. 2. Small pleural effusions. 3. Large volume of ascites. 4. Abdominal and pelvic lymphadenopathy suspicious for metastatic disease. 5. Moderate bilateral hydronephrosis. 6. Gallbladder distention, which may be secondary to fasting or duct obstruction. Reviewed, dictated and finalized at location A. IMPRESSION: 1. Free intraperitoneal gas, consistent with perforated viscus. I called this r esult to Dr. Mckeon. 2. Small pleural effusions. 3. Large volume of ascites. 4. Abdominal and pelvic lymphadenopathy suspicious for metastatic disease. 5. Moderate bilateral hydronephrosis. 6. Gallbladder distention, which may be secondary to fasting or duct obstructio n.
--- NOTE | ~2023-12-31 | XR_ITS ---
XR chest port-a-cath/central 01/05/2024 12:51 Indication: Dialysis catheter insertion Procedure: AP portable chest Comparison: 01/05/2024 and 10/02/2013 Findings: Persistent bilateral airspace disease. Interval placement of right internal jugular central venous catheter, tip at the cavoatrial junction. NG tube in the stomach. Impression: 1: Persistent bilateral airspace disease which may represent pneumonia or edema. 2: Small pleural effusions. Reviewed, dictated and finalized at location B. Impression: 1: Persistent bilateral airspace disease which may represent pneumonia or edema . 2: Small pleural effusions.
--- NOTE | ~2023-12-31 | US_ITS ---
US renal BI DATE: 01/04/2024 12:08 INDICATION: Acute renal insufficiency. Bilateral hydronephrosis. TECHNIQUE: Real-time imaging of kidneys and urinary bladder COMPARISON: 01/04/2024 CT abdomen pelvis FINDINGS: Technologist notes that the examination was difficult to lack of cooperation with the patie nt.Moderate bilateral hydronephrosis Increased echogenicity of the renal parenchyma suggesting bilateral chronic renal disease The right kidney measures 9.8 cm length, the left kidney 10.4 cm length. There is a Lozada catheter within the evacuated urinary bladder. IMPRESSION: Moderate bilateral hydronephrosis Increased echogenicity of the renal parenchyma suggesting bilateral chronic renal disease Reviewed, dictated and finalized at [facility]. Reviewed, dictated and finalized at location A. IMPRESSION: Moderate bilateral hydronephrosis Increased echogenicity of the renal parenchyma suggesting bilateral chronic alyssa al disease
--- NOTE | ~2023-12-31 | CT_ITS ---
EXAMINATION: CT abdomen pelvis wo con DATE: 01/04/2024 11:19 INDICATION: Postoperative from repair of perforated gastric ulcer. Patient pulled out drainage tube TECHNIQUE: Computed tomography (CT) of the abdomen and pelvis was performed without intravenous contr ast. Automated exposure control and iterative reconstruction technique were employed. Exam dose: 957 .40 mGy-cm total exam DLP. COMPARISON: 01/03/2024 CT abdomen pelvis FINDINGS: This examination is limited by motion and by the overlapping upper extremities, degrading i mage quality. Persistent mild bilateral pleural effusion, right greater than left. There is right basilar infiltrat e/atelectasis involving the middle lobe and to a greater extent right lower lobe and minimal dependen t left lower lobe atelectasis.. Ascites is noted, minimally diminished compared to 01/03/2024. Interval absence of intraperitoneal cavity drainage catheter since 01/03/2024, reportedly pulled out by patient. Skin dejuan are noted along the anterior abdominal wall from recent laparotomy. The liver, spleen, pancreas are stable, unremarkable other than previously mentioned 8 mm hepatic cys t. Bilateral adrenal hypertrophy or masses. Stable bilateral moderate hydronephrosis. There is a Lozada catheter within the evacuated urinary blad suhail. Uterus and adnexa are unremarkable. There is mild fluid accumulation in the posterior cul-de-sac . Gastrohepatic, gastrosplenic, aortocaval, periaortic, periportal, and bilateral external lymphadenopa thy are again noted in addition to peritoneal masses. There is atherosclerotic calcification but normal caliber of the abdominal aorta. No bowel obstruction is evident. There is edema of the abdominal and pelvic johns and proximal thighs. IMPRESSION: Removal of surgical drain from the peritoneal cavity, mild ascites, diminished since 01/02 No other significant interval change Reviewed, dictated and finalized at [facility]. Reviewed, dictated and finalized at location A. IMPRESSION: Removal of surgical drain from the peritoneal cavity, mild ascites , diminished since 01/03/2024 No other significant interval change
--- NOTE | ~2023-12-31 | XR_ITS ---
Supine and upright views of the abdomen Clinical history: Ileus Findings: NG tube in satisfactory position. Bowel gas pattern is nonspecific. No evidence for obstruc tion or free air. No abnormal mass lesion or calcification is seen. Osseous structures are intact. Impression: NG tube in place. Overall somewhat nonspecific bowel gas pattern. Reviewed, dictated and finalized at [facility]. Impression: NG tube in place. Overall somewhat nonspecific bowel gas pattern.
--- NOTE | ~2023-12-31 | XR_ITS ---
EXAMINATION: XR lumbar spine 2-3V DATE: 01/01/2024 10:49 INDICATION: Fall. TECHNIQUE: 3 views of lumbar spine were obtained. COMPARISON: Lumbar spine radiographs 12/09/2023, CT abdomen and pelvis 12/31/2023 FINDINGS: There is 3 degrees levocurvature of lumbar spine. Vertebral body heights are normal. There is mildly decreased disc height at L1-L2 and severely decreased disc height at L5-S1. There is multil evel facet joint osteoarthritis, severe on the right at L4-L5. The nasogastric tube tip is in the sto mach. A surgical drain overlies the abdomen. Skin dejuan are noted. IMPRESSION: 1. Severe lower lumbar spondylosis. Reviewed, dictated and finalized at location A.
--- NOTE | ~2023-12-31 | XR_ITS ---
EXAMINATION: XR UGI w esoph water soluble DATE: 01/02/2024 10:12 INDICATION: Gastric ulcer status post repair. TECHNIQUE: Water-soluble contrast was injected into the nasogastric tube. Fluoroscopy of the esophagu s, stomach, and proximal small bowel was performed. Fluoroscopy exposure time was 0.5 minutes. The to isma number of images was 24. Total dose-area product was 2.536 Gy-cm^2. COMPARISON: CT abdomen and pelvis 12/31/2023 FINDINGS: The nasogastric tube tip is in the stomach. There is no hiatal hernia. There is gastroesoph ageal reflux of contrast. The proximal duodenum is normal. A surgical drain is noted. Skin dejuan ar e noted. IMPRESSION: 1. No extraluminal leakage of contrast. Reviewed, dictated and finalized at location A.
--- NOTE | ~2023-12-31 | XR_ITS ---
XR abdomen gastric tube insert INDICATION: Evaluate NG tube position. TECHNIQUE: Limited KUB perform for evaluating NG tube . COMPARISON: No prior studies for comparison. FINDINGS: NG tube tip in the stomach. Visualized bowel gas pattern is unremarkable.There is a laparo aditi staple line. IMPRESSION: 1: NG tube tip in the stomach. Reviewed, dictated and finalized at location B.
--- NOTE | ~2023-12-31 | XR_ITS ---
XR chest ET placement Ordering provider: Cash Whtie MD History: 68 years Female with . After intubation to confirm ET placement . Comparison: None. FINDINGS: MEDIASTINUM: The cardiac silhouette is not enlarged. Endotracheal tube is seen with the tip above the yeimy by about 3 cm. Nasogastric tube seen with the tip in the stomach. Right central line with the tip in the right atrium. LUNGS: Bilateral airspace disease seen in both lungs more in the lower lobes with right pleural effus ion and possible left pleural effusion. No pneumothorax. OTHER: No free air under the diaphragm. IMPRESSION: Bilateral airspace disease suggestive of pneumonia. Pulmonary edema is not excluded. Reviewed, dictated and finalized at location A. IMPRESSION: Bilateral airspace disease suggestive of pneumonia. Pulmonary edema is not excl uded.
--- NOTE | ~2023-12-31 | CT_ITS ---
EXAMINATION: CT abdomen pelvis wo con DATE: 01/03/2024 14:07 INDICATION: Perforated gastric ulcer status post repair. TECHNIQUE: Computed tomography (CT) of the abdomen and pelvis was performed without intravenous contr ast. Automated exposure control and iterative reconstruction technique were employed. The dose-length product was 684.53 mGy-cm. COMPARISON: CT abdomen and pelvis 12/31/2023 FINDINGS: The visualized portions of the lung bases demonstrate mild atelectasis. There are small ple ural effusions, right worse than left. The heart size is normal. There are coronary artery calcificat ions. No pericardial effusion. The nasogastric tube tip is in the stomach. There is an 8 mm cyst in t he liver. There is periportal edema in the liver. The gallbladder is distended. The spleen and pancre as are normal. There are masses in the adrenal glands measuring up to 1.8 cm on the left. There are 2 mm and 3 mm stones in right kidney. There is moderate right hydronephrosis. There is moderate left h ydronephrosis. There are no dilated loops of bowel. The appendix is not visualized. Skin dejuan are noted. There is a surgical drain in the anterior abdomen. There are multiple peritoneal masses. There is gastrohepatic, gastrosplenic, aortocaval, periportal, left para-aortic lymphadenopathy, and bilat eral external iliac lymphadenopathy. Body wall edema is noted. There is a small volume of perihepatic and perisplenic ascites. There is severe lower lumbar spondylosis. There is mild chronic anterior we dging of T11 and T12 vertebral bodies. IMPRESSION: 1. Small pleural effusions. 2. Gallbladder distention, which may be secondary to fasting or acute cholecystitis. 3. Moderate bilateral hydronephrosis. 4. Abdominal and pelvic lymphadenopathy and peritoneal masses suspicious for metastatic disease. 5. Small volume of perihepatic and perisplenic ascites. 6. Adrenal masses, which may be adenomas or metastatic disease. Reviewed, dictated and finalized at location A. IMPRESSION: 1. Small pleural effusions. 2. Gallbladder distention, which may be secondary to fasting or acute cholecyst itis. 3. Moderate bilateral hydronephrosis. 4. Abdominal and pelvic lymphadenopathy and peritoneal masses suspicious for me tastatic disease. 5. Small volume of perihepatic and perisplenic ascites. 6. Adrenal masses, which may be adenomas or metastatic disease.
[2023-12-31 09:04] LABS: Basophils Percent Auto 0.3 % (0.2-1.2); Eosinophils Absolute Auto 0.3 K/mm3 (0-0.3); Eosinophils Percent Auto 2.3 % (0-4.4); Hematocrit 38.3 % (37.0-47.0); Hemoglobin 12.6 g/dL (12.0-15.0); Immature Granulocyte Percent A 0.9 % (0-0.5); Lymphocytes Absolute Auto 0.82 K/mm3 (0.9-3.2); Lymphocytes Percent Auto 7.5 % (18.3-44.2); Mean Corpuscular HGB Conc 32.9 g/dl (32-36); Mean Corpuscular Hemoglobin 30.9 pg (26-34); Mean Corpuscular Volume 93.9 fl (80-100); Mean Platelet Volume 9.1 fl (7.4-10.4); Monocytes Absolute Auto 1.2 K/mm3 (0.1-0.6); Monocytes Percent Auto 10.9 % (2.6-8.5); Neutrophils Absolute Auto 8.5 K/mm3 (1.3-6.7); Neutrophils Percent Auto 78.1 % (45.5-73.1); Platelet Count Result 347 k/mm3 (150-375); Red Blood Count 4.08 M/mm3 (4.2-5.4); Red Cell Distribution Width 13.6 % (11.5-14.5); White Blood Count 10.9 K/mm3 (4.5-10.0)
[2023-12-31 09:14] LABS: Alanine Aminotransferase 18 U/L (6-35); Albumin Level 3.7 g/dL (3.5-5.1); Alkaline Phosphatase 140 U/L (38-126); Anion Gap 8 mmol/L (4-12); Aspartate Amino Transferase 36 U/L (14-36); Bilirubin,Total 0.6 mg/dL (0.2-1.3); Blood Urea Nitrogen 32 mg/dL (7-17); Calcium 8.9 mg/dL (8.4-10.2); Carbon Dioxide 24 mmol/L (22-30); Chloride 99 mmol/L (98-107); Estimated CRCL calculation 23 ml/min; Estimated Glomerular Filt Rate 26; Glucose 128 mg/dL (65-110); Lipase 456 U/L (23-300); Potassium 3.6 mmol/L (3.4-5.0); Sodium 131 mmol/L (137-145)
[2023-12-31 09:20] LABS: Appearance Urine Cloudy (Clear); Bacteria Urine None Seen /hpf; Bilirubin Urine 1+ (Negative); Blood Urine 3+ (Negative); Color Urine Dark Yellow (Yellow); Glucose Urine UA Negative (Negative); Ketones Urine Trace mg/dL (Negative); Leukocyte Esterase Ur Trace LEU/UL (Negative); Need Manual Microscopic Reviewed; Nitrate Urine Negative (Negative); Non Pathogenic Casts >20; Protein Urine 2+ mg/dL (Negative); RBC Urine >100 /hpf (0-2); Specific Grav Ur 1.034 (1.001-1.035); Squamous Epithelial Cell Urine None Seen /hpf (Few)
[2023-12-31 09:21] LABS: Add Urine Microscopic? YES
[2023-12-31] MEDS: SODIUM CHLORIDE 0.9% IV 1,000 ML 999 ML IV CONT (09:34)
[2023-12-31] MEDS: ONDANSETRON INJ 4 MG/2 ML VIAL IV PUSH (09:34)
[2023-12-31] MEDS: MORPHINE SULFATE (*CRX) 4 MG/ML INJ IV PUSH (09:34)
--- NOTE | 2023-12-31 10:24 | ED.ABDPAIN ---
HPI - Abdominal Pain General Chief Complaint: Abdominal Pain Stated Complaint: abd pain Time Seen by Provider: 12/31/23 08:46 Source: EMS Mode of arrival: EMS Limitations: no limitations History of Present Illness HPI narrative: 68-year-old with a history of seizure disorder, DVT on apixaban, osteoporosis here with a complaint of upper abdominal pain which started last night. Complains of nausea she denies any fever or chills. MD elicited complaint: abdominal pain Pertinent past history: none Onset (ago): day(s) (1) Location: epigastric Severity: moderate Quality: aching Radiation: none Migration to: no migration Exacerbating factors: nothing Relieving factors: nothing Associated symptoms: denies other symptoms Related Data Home Medications Medication Instructions Recorded Confirmed alendronate 70 mg tablet 70 mg PO WEEKLY 03/02/20 03/02/20 lamotrigine 200 mg tablet 200 mg PO BID 03/02/20 03/02/20 lamotrigine 25 mg tablet 75 mg PO BID 03/02/20 03/02/20 phenytoin sodium extended 100 mg 100 mg PO TID 03/02/20 03/02/20 capsule zonisamide 100 mg capsule 500 mg PO DAILY 03/02/20 03/02/20 Allergies Allergy/AdvReac Type Severity Reaction Status Date / Time No Known Allergies Allergy Verified 11/04/22 17:10 Review of Systems Review of Systems: All systems reviewed & are unremarkable except as noted in HPI and below Constitutional: Constitutional: Reports no additional constitutional complaints Eyes: Eyes: Reports no additional eye complaints ENT: Reports system reviewed and no additional complaints, except as documented Cardiovascular: Cardiovascular: Reports no additional cardiovascular complaints Respiratory: Respiratory: Reports no additional respiratory complaints Gastrointestinal: Gastrointestinal: Reports as per HPI Musculoskeletal: Musculoskeletal: Reports no additional musculoskeletal complaints Neurologic: Reports system reviewed and no additional complaints, except as documented PMFSH Past Medical History Medical History Osteoporosis Seizure disorder Surgical History Surgical History History of abdominal surgery Abdominal surgery as a child with RUQ abdominal scar but patient does not know what kind of surgery she had or when. Family History Family History Mother Glaucoma Exam Narrative: GENERAL: Well-appearing, well-nourished, and in no acute distress, anxious HEAD: Normocephalic, atraumatic. EYES: PERRLA and EOMI. ENT: Nares clear, no rhinorrhea or epistaxis. Mucous membranes moist. NECK: Supple. CHEST: Clear to auscultation. No respiratory distress. HEART: Regular rate and rhythm. No murmur heard. Normal peripheral pulses. ABDOMEN: Soft, diffuse tenderness mildly distended has a surgical scar . EXTREMITIES: Normal range of motion. No edema. SKIN: Warm, dry, no rash. NEURO: No focal deficits. Alert and oriented x3. PSYCH: Normal mood and affect. Course Course Emergency Course: Patient comfortable after IV morphine and Zofran. Informed her and sister about the lab work, CT findings. Discussed with Dr. Pineda will take her to the OR. I did give her IV Zosyn and Flagyl while she was at the ER. Vital Signs Vital signs: Vital Signs Temperature 36.4 C 12/31/23 08:37 Pulse Rate 110 H 12/31/23 08:37 Respiratory Rate 22 H 12/31/23 08:37 Blood Pressure 134/81 12/31/23 08:37 Pulse Oximetry 97 12/31/23 08:37 Oxygen Delivery Room Air 12/31/23 08:37 Temperature 36.4 C 12/31/23 08:37 Pulse Rate 114 H 12/31/23 10:02 Respiratory Rate 28 H 12/31/23 10:02 Blood Pressure 107/66 12/31/23 10:02 Pulse Oximetry 99 12/31/23 10:02 Oxygen Delivery Room Air 12/31/23 08:37 MDM - Abdominal Pain Differential Diagnosis Differential diagnosis: Likely abdominal pain, constipation, pancre
[2023-12-31] MEDS: metroNIDAZOLE 500 MG/ISO 100ML 500 MG/100 ML BAG 100 MG IVPB (10:30)
[2023-12-31] MEDS: PIPERACILLN/TAZ 3.375GM/NS50ML 3.375 GM/50 ML BAG IVPB (10:30)
--- NOTE | 2023-12-31 11:15 | PM.CNGS ---
Assessment and Plan Assessment and plan (1) Perforated abdominal viscus: Code(s): R19.8 - Other specified symptoms and signs involving the digestive system and abdomen Status: Acute Assessment and Plan: CT showed evidence of free intraperitoneal gas consistent with perforated viscus. I reviewed the CT with radiologist and she appears to have mostly free air in the upper abdomen with the possibility of having a perforated gastric ulcer, but no obvious ulcer seen on CT. No other findings of diverticulitis or any other areas that would be an obvious source for perforation. There is abdominal and pelvic lymphadenopathy that is concerning for metastatic disease as well as a large volume of ascites. There is a concern of metastatic cancer that was also discussed with the patient and her sister. She has diffuse peritoneal signs and evidence of an acute surgical abdomen on exam. Discussed the options of proceeding with an exploratory laparotomy, possible bowel resection under general anesthesia by Dr. Mckee versus non operative management and the possibilities of worsening sepsis, deterioration, and possible . Description of the procedure, risks, benefits, alternatives, and expected recovery were discussed with the patient in detail. We discussed that she has an increased risk of bleeding given her anticoagulation that has only been held for just under 24 hours. We also discussed that depending on intraoperative findings, if there is a significant perforation in the bowel, then she could require a colostomy, which she and her sister understand. We also discussed the possibility of finding metastatic cancer during surgery. Patient and her sister's questions were answered and she wishes to proceed with surgery. Continue IV antibiotics and plan to proceed to the OR for emergent ex lap today. (2) Sepsis: Code(s): A41.9 - Sepsis, unspecified organism Status: Acute Assessment and Plan: Presenting with tachycardia, tachypnea, mild leukocytosis, and CATHI. Likely secondary to perforated bowel. Proceed to the OR for ex lap. Continue broad-spectrum IV antibiotics and fluid resuscitation. (3) Intra-abdominal lymphadenopathy: Code(s): R59.0 - Localized enlarged lymph nodes Status: Acute Assessment and Plan: Found on CT with concern for metastatic disease. (4) CATHI (acute kidney injury): Code(s): N17.9 - Acute kidney failure, unspecified Status: Acute Assessment and Plan: Likely related to dehydration/poor oral intake and sepsis. Continue IV fluids, trend labs (5) Seizure disorder: Code(s): G40.909 - Epilepsy, unspecified, not intractable, without status epilepticus Status: Chronic Plan I have discussed the patient's case with Dr. Mckee and his recommendations are within the above plan. History of Present Illness Consult details Consult date: 12/31/23 Reason for consult: other (Perforated bowel) Requesting physician: Davi Mckeon MD Narrative: This is a 68-year-old woman with a history of a seizure disorder and recently diagnosed with a left lower extremity DVT on 12/28/2023 started on Eliquis. The patient is a poor historian and her sister is at the bedside helping provide additional history with the patient's permission. The patient typically lives at home alone, but her sister lives only a few blocks away. Her sister visits her every night to check in on her. She has actually been staying with the patient over the past week after having a recent fall at home. She had left hip pain and left lower extremity swelling and was seen by her PCP. She had venous Dopplers on 12/28/2023 that showed DVT involving the left posterior tibial and peroneal veins. She was started on Eliquis, with her last dose around 8:00 p.m. last night. Her sister also states the patient has been complaining of abdominal pain and back pain. No specific location. She also has had a poor appetite with ve
[2023-12-31 11:24] LABS: INR 1.6; Prothrombin Time 19.6 Seconds (11.1-14.7)
[2023-12-31 11:30] LABS: Lactic Acid Reflex 1.3 mmol/L (0.7-2.0)
--- NOTE | 2023-12-31 11:37 | ECG_ITS ---
[facility] [address] Test Date: 2023-12-31 Pat Name: Kelsie Brown Department: Room: 259 Gender: F Bible Teacher: : 1955 Requested By: Mana Manrique MDeshaun Order Number: [id number] Reading MD: Trent Granados M.D. Measurements Intervals [place] Rate: 113 P: 53 ME: 162 QRS: -40 QRSD: 90 T: 68 QT: 320 QTc: 439 Interpretive Statements SINUS TACHYCARDIA MARKED LEFT AXIS DEVIATION [QRS AXIS < -30] POSSIBLE RIGHT VENTRICULAR CONDUCTION DELAY [RSR (QR) IN V1/V2] VOLTAGE CRITERIA FOR LVH [MEETS CRITERIA IN ONE OF: R(aVL), S(V1), R(V5), R(V5/V6)+S(V1)] NONSPECIFIC ST & T-WAVE ABNORMALITY No previous ECG available for comparison Electronically Signed On 01-01-2024 13:48:52 CDT by Trent Granados M.D.
--- NOTE | 2023-12-31 12:25 | PC.NURSE ---
GERMAN Miguel from OR called to get report and requested an EKG. EKG completed. agricultural engineering technicians attempted to get blood cultures and after 3 unsuccessful attempts she notified phlebotomy to request assistance.
[2023-12-31] MEDS: LACTATED RINGERS 1,000 ML 30 ML IV CONT ×2 (12:30→14:23)
--- NOTE | 2023-12-31 12:45 | WPDANESEPPF ---
Anes - Initial Pre Proc Eval Procedure: Operation Date: 12/31/23 13:00 Proposed Procedures p Exploratory Laparotomy, Possible Bowel Resection - Valeria Mckee MD Date/Time: 12/31/23 12:45 Surgeon: Valeria Mckee MD Pre Op Diagnosis: abd pain Patient Data Age: 68 Gender: F Height: 1.65 m Weight: 63.6 kg Last Vital Signs Temp 36.4 C 12/31/23 08:37 Pulse 113 H 12/31/23 12:15 Resp 26 H 12/31/23 12:15 BP 148/82 H 12/31/23 11:47 Pulse Ox 97 12/31/23 12:15 O2 Del Method Room Air 12/31/23 08:37 Allergies Allergy/AdvReac Type Severity Reaction Status Date / Time No Known Allergies Allergy Verified 11/04/22 17:10 Home Medications Medication Instructions Recorded Confirmed Type alendronate 70 mg tablet 70 mg PO WEEKLY 03/02/20 03/02/20 History lamotrigine 200 mg tablet 200 mg PO BID 03/02/20 03/02/20 History lamotrigine 25 mg tablet 75 mg PO BID 03/02/20 03/02/20 History phenytoin sodium extended 100 mg 100 mg PO TID 03/02/20 03/02/20 History capsule zonisamide 100 mg capsule 500 mg PO DAILY 03/02/20 03/02/20 History apixaban 5 mg tablet (Eliquis) 10 mg PO BID #14 tabs 12/28/23 Rx Laboratory Tests 12/31/23 12/31/23 08:49 10:57 WBC 10.9 H K/mm3 (4.5-10.0) RBC 4.08 L M/mm3 (4.2-5.4) Hgb 12.6 g/dL (12.0-15.0) Hct 38.3 % (37.0-47.0) MCV 93.9 fl (80-100) MCH 30.9 pg (26-34) MCHC 32.9 g/dl (32-36) RDW 13.6 % (11.5-14.5) Plt Count 347 k/mm3 (150-375) MPV 9.1 fl (7.4-10.4) Immature Gran % (Auto) 0.9 H % (0-0.5) Neut % (Auto) 78.1 H % (45.5-73.1) Lymph % (Auto) 7.5 L % (18.3-44.2) [place] % (Auto) 10.9 H % (2.6-8.5) Eos % (Auto) 2.3 % (0-4.4) Baso % (Auto) 0.3 % (0.2-1.2) Lymph # (Auto) 0.82 L K/mm3 (0.9-3.2) [place] # (Auto) 1.2 H K/mm3 (0.1-0.6) Eos # (Auto) 0.3 K/mm3 (0-0.3) Baso # (Auto) 0.0 K/mm3 (0.0-0.1) Abs Immat Gran (auto) 0.10 H K/mm3 (0.00-0.031) Absolute Neuts (auto) 8.5 H K/mm3 (1.3-6.7) Absolute Nucleated RBC 0.000 K/mm3 (0.0-0.012) Nucleated RBC % 0.0 % (0.0-0.2) PT 19.6 H Seconds (11.1-14.7) INR 1.6 Sodium 131 L mmol/L (137-145) Potassium 3.6 mmol/L (3.4-5.0) Chloride 99 mmol/L (98-107) Carbon Dioxide 24 mmol/L (22-30) Anion Gap 8 mmol/L (4-12) BUN 32 H mg/dL (7-17) Creatinine 1.90 H mg/dL (0.7-1.0) Estim Creat Clear Calc 23 ml/min Estimated GFR 26 L (59 - ) Glucose 128 H mg/dL (65-110) Lactic Acid 1.3 mmol/L (0.7-2.0) Calcium 8.9 mg/dL (8.4-10.2) Total Bilirubin 0.6 mg/dL (0.2-1.3) AST 36 U/L (14-36) ALT 18 U/L (6-35) Alkaline Phosphatase 140 H U/L (38-126) Total Protein 6.0 L g/dL (6.3-8.2) Albumin 3.7 g/dL (3.5-5.1) Lipase 456 H U/L (23-300) Urine Color Dark yellow (Yellow) Urine Appearance Cloudy H (Clear) Urine pH 5.0 (5.0-9.0) Ur Specific [place] 1.034 (1.001-1.035) Urine Protein 2+ H mg/dL (Negative) Urine Glucose (UA) Negative mg/dL (Negative) Urine Ketones Trace H mg/dL (Negative) Ur Blood (Man) 3+ H (Negative) Urine Nitrate Negative (Negative) Urine Bilirubin 1+ H (Negative) Urine Urobilinogen 1.0 mg/dL (<2.0) Add Ur Microanalysis Reviewed Leukocyte Esterase Rfl Trace H COLE/UL (Negative) Urine RBC >100 H /hpf (0-2) Urine WBC 6-10 H /hpf (0-3) Ur Squamous Epith Cells None seen /hpf (Few) Urine Bacteria None seen /hpf Urine Casts >20 Patient hx anesthesia problems: none Family hx anesthesia problems: none Results Review: All pre-operative results and documents have been reviewed as part of
--- NOTE | 2023-12-31 12:59 | WPDHPUPDATE1 ---
History and Physical Update Update Date/Time: 12/31/23 12:59 History and Physical has been reviewed, including an updated exam of the patient. There are NO changes in the patient's condition. Risks, benefits, and alternatives have been discussed and questions answered. Patient agrees to proceed with procedure.
--- NOTE | 2023-12-31 14:44 | P.OP_ITS ---
Procedure Note - Detailed Date of Procedure 12/31/23 Pre-op Diagnosis Perforated viscus, intra-abdominal sepsis Post-op Diagnosis Other ( perforated gastric ulcer) Procedure Performed exploratory laparotomy, extensive washout, repair of perforated gastric ulcer with Ari patch Surgeon Valeria Mckee MD Anesthesia General Indications 68-year-old female presenting to the emergency department complaining severe abdominal pain. Workup, including imaging, significant for perforated viscus, intra-abdominal sepsis. Findings Perforated gastric ulcer Description of Procedure The patient was taken to the operating room and placed in the supine position. After adequate induction of general anesthesia, the patient was prepped and draped in the normal sterile fashion. A time-out was then done to verify the p atient's identity, as well as the procedure being performed. I began by making an upper midline incision and gained access into the peritoneal cavity. Once in the peritoneal cavity, a large amount of free air and intra-abdominal succus was noted. Approximately 1 L of intra-abdominal succus was suctioned from the abdominal cavity. Upon examination of the upper abdomen, a moderate sized perforation was noted in the stomach. This was noted to be in the greater curvature. A large amount of gastric contents was noted to be coming from the perforation. A nasogastric tube was placed and the stomach was decompressed. I then examined the rest of the abdomen and no other obvious pathology was noted. I then primarily repaired the perforation in 2 layers. This was done with 2-0 Vicryl suture followed by imbricating 3-0 silk sutures. I then placed an omental patch over our repair using 3-0 silk sutures. The repair was noted to be tension-free. The the previously placed NG tube was noted to be in good position. Approximately 60 mL of normal saline was then placed in the stomach through the NG. The stomach was noted to distend and there was no leakage of the normal saline. At this point I copiously washed out the abdominal cavity. A 15 Pakistani drain was left in the area of our repair. I then closed the fascia with 0 looped PDS suture x2. The skin was closed with skin dejuan. The patient tolerated the procedure well and was extubated postoperatively. She will be sent to the recovery room in stable condition. Estimated Blood Loss 20 Urine Output 10 Drains Yes Packing No Pathology None sent Complications No immediate complications Condition Stable Disposition PACU [facility] Billing Surgery - Charge Forward: Surgery Billing
[2023-12-31] MEDS: fentaNYL CITRATE INJ (*CRX) 100 MCG/2 ML VIAL 25 MCG IV PUSH ×8 (15:05→15:55)
[2023-12-31] MEDS: IBUPROFEN IV 800 MG/200 ML 800 MG/200 ML BAG 400 MG IVPB (17:31)
[2023-12-31] MEDS: LACTATED RINGERS 1,000 ML 100 ML IV CONT (17:31)
[2023-12-31] MEDS: PIPERACILLIN/TAZ 2.25G/NS 50ML 2.25 GM/50 ML BAG IVPB ×2 (18:35→23:03)
[2023-12-31] MEDS: HYDROmorphone HCL INJ (*CRX) 1 MG/ML SYR 0.5 MG IV PUSH (18:35)
--- NOTE | 2023-12-31 20:30 | PM.IMHP ---
H&P: HPI History of Present Illness Date/Time: 12/31/23 20:30 Chief Complaint: abdominal pain Narrative: patient is 68-year-old with history of seizure disorder, DVT on Eliquis, osteoporosis complaining of abdominal pain since last night associated with nausea 1 episode of vomiting denied fever and chills. Patient's pain is mostly in the epigastric region aching in nature and nonradiating. Patient was seen by General surgery. Patient has CT scan done which showed free intraperitoneal gas consistent perforated viscera. Patient was taken to OR for possible diffuse peritoneal signs and symptoms and acute abdominal. . Patient was tachycardic and had leukocytosis. Review of Systems Review of Systems: All systems reviewed & are unremarkable except as noted in HPI and below PMFSH Past Medical History Medical History (Updated 12/31/23 @ 12:45 by Albert Thompson MD) DVT (deep venous thrombosis) Osteoporosis Seizure disorder Surgical History Surgical History History of abdominal surgery Abdominal surgery as a child with RUQ abdominal scar but patient does not know what kind of surgery she had or when. Family History Family History Mother Glaucoma Social History Social History Smoking packs per day: 1 Smoking cigarettes per day: 20.0 Years smoked: 20 Smoking pack-years: 20.00 Smoking status: Former smoker Alcohol intake: never Substance use: never Do You Feel Safe in your Home?: Yes Lack of Transportation: No Lack of Food: Never True Current Housing: I Have Housing Concerned About Future Housing: No Difficulty Paying Gas/Electric Bills: No Difficulty Paying for Meds: No Currently Unemployed: No Education: Don't Know Difficulty w/ Childcare or Family Care: No Spiritual care concerns: No Meds Home Medications and Allergies Home Medications Medication Instructions Recorded Confirmed Type alendronate 70 mg tablet 70 mg PO WEEKLY 03/02/20 12/31/23 History lamotrigine 200 mg tablet 200 mg PO BID 03/02/20 12/31/23 History lamotrigine 25 mg tablet 75 mg PO BID 03/02/20 12/31/23 History phenytoin sodium extended 100 mg 100 mg PO TID 03/02/20 12/31/23 History capsule zonisamide 100 mg capsule 500 mg PO DAILY 03/02/20 12/31/23 History apixaban 5 mg tablet (Eliquis) 10 mg PO BID #14 tabs 12/28/23 12/31/23 Rx ergocalciferol (vitamin D2) 1,000 1,000 unit PO DAILY 12/31/23 12/31/23 History unit capsule Allergies Allergy/AdvReac Type Severity Reaction Status Date / Time No Known Allergies Allergy Verified 12/31/23 12:52 Vital Signs Vital Signs - 24 hr 12/31/23 08:37 12/31/23 10:02 12/31/23 11:47 Temperature 36.4 C Pulse Rate 110 H 114 H 112 H Respiratory Rate 22 H 28 H 17 Blood Pressure 134/81 107/66 148/82 H Pulse Oximetry 97 99 98 Oxygen Delivery Room Air Oxygen Flow Rate 12/31/23 12:15 12/31/23 12:55 12/31/23 14:23 Temperature 36.6 C 35.8 C L Pulse Rate 113 H 106 H 98 Respiratory Rate 26 H 14 11 L Blood Pressure 121/70 140/81 Pulse Oximetry 97 95 100 Oxygen Delivery Room Air Simple Face Mask Oxygen Flow Rate 8 12/31/23 14:35 12/31/23 14:50 12/31/23 15:05 Temperature Pulse Rate 97 101 H 116 H Respiratory Rate 14 15 20 Blood Pressure 151/82 H 149/86 H 143/103 H Pulse Oximetry 100 100 94 Oxygen Delivery Simple Face Mask Room Air Room Air Oxygen Flow Rate 8 12/31/23 15:20 12/31/23 15:35 12/31/23 15:50 Temperature Pulse Rate 116 H 120 H 110 H Respiratory Rate 16 14 12 Blood Pressure 151/74 H 131/88 129/93 H Pulse Oximetry 99 98 98 Oxygen Delivery Nasal Cannula Nasal Cannula Nasal Cannula Oxygen Flow Rate 2 2 2 12/31/23 16:05 12/31/23 16:30 12/31/23 16:45 Temperature 36.4 C 36.4 C L Pulse Rate 107 H 104 H 104 H Respiratory Rate 16 14 14 Blood Press
[2023-12-31] MEDS: HYDROmorphone HCL INJ (*CRX) 1 MG/ML SYR IV PUSH ×2 (20:42→22:44)
[2023-12-31] MEDS: FAMOTIDINE 20 MG/2 ML VIAL IV PUSH (20:42)
[2023-12-31] MEDS: PANTOPRAZOLE SODIUM IV 40 MG VIAL IV PUSH (20:45)
[2023-12-31 21:07] LABS: Hematocrit 37.8 % (37.0-47.0); Hemoglobin 12.5 g/dL (12.0-15.0); Mean Corpuscular HGB Conc 33.1 g/dl (32-36); Mean Corpuscular Hemoglobin 31.3 pg (26-34); Mean Corpuscular Volume 94.7 fl (80-100); Platelet Count Result 302 k/mm3 (150-375); Red Blood Count 3.99 M/mm3 (4.2-5.4); Red Cell Distribution Width 13.8 % (11.5-14.5); White Blood Count 14.3 K/mm3 (4.5-10.0)
[2023-12-31 21:19] LABS: Alanine Aminotransferase 16 U/L (6-35); Alkaline Phosphatase 98 U/L (38-126); Anion Gap 9 mmol/L (4-12); Aspartate Amino Transferase 33 U/L (14-36); Bilirubin,Total 0.9 mg/dL (0.2-1.3); Blood Urea Nitrogen 33 mg/dL (7-17); Calcium 7.7 mg/dL (8.4-10.2); Carbon Dioxide 19 mmol/L (22-30); Chloride 103 mmol/L (98-107); Estimated CRCL calculation 24 ml/min; Estimated Glomerular Filt Rate 28; Glucose 127 mg/dL (65-110); Sodium 131 mmol/L (137-145)
[2024-01-01] VITALS (7 sets, daily range): BP systolic 93–117; BP diastolic 53–79; PULSE 100–110; RESP 16–18; TEMP 36.3–36.6; O2SAT 93–97; BMI 25.2
[2024-01-01] MEDS: IBUPROFEN IV 800 MG/200 ML 800 MG/200 ML BAG 400 MG IVPB (03:18)
[2024-01-01 04:41] LABS: Mean Corpuscular HGB Conc 32.4 g/dl (32-36); Mean Corpuscular Volume 95.6 fl (80-100); Platelet Count Result 295 k/mm3 (150-375); Red Blood Count 3.87 M/mm3 (4.2-5.4); Red Cell Distribution Width 13.8 % (11.5-14.5); White Blood Count 19.3 K/mm3 (4.5-10.0)
[2024-01-01 04:55] LABS: Anion Gap 10 mmol/L (4-12); Blood Urea Nitrogen 37 mg/dL (7-17); Calcium 7.9 mg/dL (8.4-10.2); Carbon Dioxide 19 mmol/L (22-30); Chloride 103 mmol/L (98-107); Estimated CRCL calculation 21 ml/min; Estimated Glomerular Filt Rate 23; Glucose 129 mg/dL (65-110); Potassium 4.4 mmol/L (3.4-5.0); Sodium 132 mmol/L (137-145)
[2024-01-01] MEDS: PIPERACILLIN/TAZ 2.25G/NS 50ML 2.25 GM/50 ML BAG IVPB ×3 (05:22→17:15)
[2024-01-01] MEDS: HYDROmorphone HCL INJ (*CRX) 1 MG/ML SYR IV PUSH ×4 (05:25→22:13)
[2024-01-01] MEDS: ENOXAPARIN 40 MG/0.4 ML SYRINGE SUB-Q (08:20)
[2024-01-01] MEDS: FAMOTIDINE 20 MG/2 ML VIAL IV PUSH ×2 (08:21→20:16)
[2024-01-01] MEDS: PANTOPRAZOLE SODIUM IV 40 MG VIAL IV PUSH ×2 (08:21→20:16)
[2024-01-01] MEDS: LACTATED RINGERS 1,000 ML 100 ML IV CONT ×2 (08:27→20:14)
--- NOTE | 2024-01-01 09:40 | PM.IMPN ---
Progress Note: A&P Assessment and Plan (1) Intra-abdominal lymphadenopathy: Code(s): R59.0 - Localized enlarged lymph nodes Status: Acute (2) CATHI (acute kidney injury): Code(s): N17.9 - Acute kidney failure, unspecified Status: Acute (3) Sepsis: Code(s): A41.9 - Sepsis, unspecified organism Status: Acute (4) Perforated abdominal viscus: Code(s): R19.8 - Other specified symptoms and signs involving the digestive system and abdomen Status: Acute (5) Seizure disorder: Code(s): G40.909 - Epilepsy, unspecified, not intractable, without status epilepticus Status: Chronic Plan Sepsis/ perforated gastric ulcer /peritonitis IV fluid resuscitation surgical consult status post exploratory lap with colostomy. rule out malignancy Repeat CBC CMP WBC is 10.9 -19.3 Hemoglobin 12.5-12 D-dimer 11.9 currently on Lovenox Two sets of Blood cultures urine cultures C-reactive protein, procalcitonin level. PTT and PT INR monitoring Monitor albumin' Monitoring of mental status. Steroids suggested if septic shock on his positive fluid resuscitation and vasopressors. NPO. except ice chips Urinary catheter. SCDs. Intensive spirometry. IV antibiotics Zosyn continue IV Zofran p.r.n.. IV hydromorphone for pain control CATHI secondary to sepsis serum creatinine 1.2-1.9 -2.1 Sodium 132 Avoid nephrotoxic drugs. Monitor antihypertensive drug therapy. Avoid NSAIDs. Routine CMP monitoring GFR. Monitor electrolytes especially potassium. Pharmacy does medications. Low back pain Previous x-rays of hip and spine unremarkable. Recent history of fall will repeat x-rays. Gait strengthening exercises PTOT History of seizure disorder currently on Dilantin and lamotrigine will talk to pharmacy and switch to IV elevated alkaline phosphatase could be taken to peritonitis Overall patient is stable take on IV antibiotics condition is critical spoke to patient's family and patient detail answered all questions Subjective Date/time seen: 01/01/24 09:40 Interval history: Up on the chair still has NG drainage and wound VAC drain also complains of some abdominal pain and back pain which is rated 5/10. Review of Systems Review of Systems: All systems reviewed & are unremarkable except as noted in HPI and below Exam Narrative: GENERAL: Well appearing, no acute distress. HEAD: Normocephalic, atraumatic. NECK: Supple. No adenopathy, no masses. NG tube in place RESPIRATORY: respirations nonlabored. , no rales, wheezing. CARDIOVASCULAR: Regular rate and rhythm without murmurs, . Peripheral pulses 2+ and equal bilaterally. ABDOMINAL: Soft, tender, distended, no hepatosplenomegaly. No BS. Abdominal drain in place MUSCULOSKELETAL: no Epigastric and no hypochondrial tenderness SKIN: Warm, dry, NEURO: A&O X3. Moves all extremities Objective Data Vital Signs Vital Signs: Vital Signs - 24 hr 12/31/23 10:02 12/31/23 11:47 12/31/23 12:15 Temperature Pulse Rate 114 H 112 H 113 H Respiratory Rate 28 H 17 26 H Blood Pressure 107/66 148/82 H Pulse Oximetry 99 98 97 Oxygen Delivery Oxygen Flow Rate 12/31/23 12:55 12/31/23 14:23 12/31/23 14:35 Temperature 36.6 C 35.8 C L Pulse Rate 106 H 98 97 Respiratory Rate 14 11 L 14 Blood Pressure 121/70 140/81 151/82 H Pulse Oximetry 95 100 100 Oxygen Delivery Room Air Simple Face Mask Simple Face Mask Oxygen Flow Rate 8 8 12/31/23 14:50 12/31/23 15:05 12/31/23 15:20 Temperature Pulse Rate 101 H 116 H 116 H Respiratory Rate 15 20 16 Blood Pressure 149/86 H 143/103 H 151/74 H Pulse Oximetry 100 94 99 Oxygen Delivery Room Air Room Air Nasal Cannula Oxygen Flow Rate 2 12/31/23 15:35 12/31/23 15:50 12/31/23 16:05 Temperature Pulse Rate 120 H 110 H 107 H Respiratory Rate 14 12 16 Blood Pressure 131/88 129/93 H 113/75 Pulse Oximetry 98 98 98 Oxygen Deliver
--- NOTE | 2024-01-01 10:28 | PM.PNGS ---
Progress Note: A&P Assessment and Plan (1) Perforated gastric ulcer: Code(s): K25.5 - Chronic or unspecified gastric ulcer with perforation Status: Acute Assessment and Plan: S/p ex lap with repair of perforated gastric ulcer. Continue NG decompression, bowel rest, and IV fluids. Continue IV Zosyn and IV Protonix. Encouraged getting up to chair and increasing activity as tolerated. (2) Sepsis: Code(s): A41.9 - Sepsis, unspecified organism Status: Acute Assessment and Plan: S/p source control as noted above. WBC up some today, but clinically patient appears better, this could be related to recent surgery, continue to trend labs. Continue IV Zosyn. If not improving, could consider adding antifungal. Blood cx NGTD. (3) CATHI (acute kidney injury): Code(s): N17.9 - Acute kidney failure, unspecified Status: Acute Assessment and Plan: Creatinine up to 2.1, continue IV fluids, monitor labs, management per Hospitalist (4) Intra-abdominal lymphadenopathy: Code(s): R59.0 - Localized enlarged lymph nodes Status: Acute Plan I have discussed the patient's case and plan of care with Dr. Mckee. Subjective Subjective Date/Time Seen: 01/01/24 10:28 Post Op day: 1 (exploratory laparotomy, extensive washout, repair of perforated gastric ulcer with Ari patch) Patient reports: no flatus, no bowel movement and afebrile Interval history: Patient looks better this morning and able to talk more. Her abdominal pain has improved but she is still complaining of a significant amount of back pain. Her pain is in the lower lumbar spine and into the sacrum. She reports having this pain since her more recent fall. No other complaints at this time. Review of Systems Review of Systems: All systems reviewed & are unremarkable except as noted in HPI and below Exam Const: General: uncomfortable (Uncomfortable sitting in chair due to back pain) Orientation/consciousness: patient oriented x3 GI: Inspection: incision (dressing dry and intact) and other (Mildly distended) GI Palp: Yes Soft to palpation, Yes Tenderness to palpation present (GI) (Incisional), No Guarding due to palpation present (GI) and Yes Other GI palpation findings present (MARIAMA drain with sanguineous drainage) Auscultation: Hypoactive bowel sounds present Extrem: General: no calf tenderness and no edema Objective Data Vital Signs Vital Signs: Vital Signs - 24 hr 12/31/23 11:47 12/31/23 12:15 12/31/23 12:55 Temperature 97.8 F Pulse Rate 112 H 113 H 106 H Respiratory Rate 17 26 H 14 Blood Pressure 148/82 H 121/70 Pulse Oximetry 98 97 95 Oxygen Delivery Room Air Oxygen Flow Rate 12/31/23 14:23 12/31/23 14:35 12/31/23 14:50 Temperature 96.4 F L Pulse Rate 98 97 101 H Respiratory Rate 11 L 14 15 Blood Pressure 140/81 151/82 H 149/86 H Pulse Oximetry 100 100 100 Oxygen Delivery Simple Face Mask Simple Face Mask Room Air Oxygen Flow Rate 8 8 12/31/23 15:05 12/31/23 15:20 12/31/23 15:35 Temperature Pulse Rate 116 H 116 H 120 H Respiratory Rate 20 16 14 Blood Pressure 143/103 H 151/74 H 131/88 Pulse Oximetry 94 99 98 Oxygen Delivery Room Air Nasal Cannula Nasal Cannula Oxygen Flow Rate 2 2 12/31/23 15:50 12/31/23 16:05 12/31/23 16:30 Temperature 97.6 F Pulse Rate 110 H 107 H 104 H Respiratory Rate 12 16 14 Blood Pressure 129/93 H 113/75 126/68 Pulse Oximetry 98 98 98 Oxygen Delivery Nasal Cannula Nasal Cannula Oxygen Flow Rate 2 2 12/31/23 16:45 12/31/23 17:15 12/31/23 18:15 Temperature 97.5 F L 96.9 F L Pulse Rate 104 H 103 H 109 H Respiratory Rate 14 14 16 Blood Pressure 130/77 133/76 118/66 Pulse Oximetry 99 99 98 Oxygen Delivery Oxygen Flow Rate 12/31/23 18:00 12/31/23 20:21 12/31/23 20:00 Temperature 97.6 F Pulse Rate 109 H Respiratory Rate 18 Blood Pressure 121/67 Pulse Oximetry 97 99 99 Oxygen Delivery Nasal Cannula Nasal Cannula O
[2024-01-01] MEDS: PHENYTOIN SODIUM INJ 100 MG/2 ML VIAL (*BKC) IV PUSH ×2 (13:18→22:13)
--- NOTE | 2024-01-01 15:59 | PC.NURSE ---
Dr Blake aware of patient being incontinent once. Bladder scan amounts relayed and no further intervention needed at this time.
[2024-01-01 21:47] LABS: Hemoglobin 13.1 g/dL (12.0-15.0); Mean Corpuscular Hemoglobin 31.4 pg (26-34); Mean Corpuscular Volume 98.3 fl (80-100); Mean Platelet Volume 9.3 fl (7.4-10.4); Platelet Count Result 311 k/mm3 (150-375); Red Blood Count 4.17 M/mm3 (4.2-5.4); Red Cell Distribution Width 14.5 % (11.5-14.5); White Blood Count 20.9 K/mm3 (4.5-10.0)
[2024-01-01 21:59] LABS: Alanine Aminotransferase 18 U/L (6-35); Albumin Level 3.6 g/dL (3.5-5.1); Alkaline Phosphatase 92 U/L (38-126); Anion Gap 14 mmol/L (4-12); Aspartate Amino Transferase 36 U/L (14-36); Bilirubin,Total 0.8 mg/dL (0.2-1.3); Blood Urea Nitrogen 47 mg/dL (7-17); Calcium 7.8 mg/dL (8.4-10.2); Carbon Dioxide 16 mmol/L (22-30); Chloride 103 mmol/L (98-107); Estimated CRCL calculation 16 ml/min; Estimated Glomerular Filt Rate 17; Glucose 103 mg/dL (65-110); Potassium 4.1 mmol/L (3.4-5.0); Sodium 133 mmol/L (137-145)
[2024-01-02] VITALS (8 sets, daily range): BP systolic 109–135; BP diastolic 43–67; PULSE 100–120; RESP 16–20; TEMP 36.4–37.2; O2SAT 95–100
[2024-01-02] MEDS: PIPERACILLIN/TAZ 2.25G/NS 50ML 2.25 GM/50 ML BAG IVPB ×4 (00:33→20:14)
[2024-01-02] MEDS: PHENYTOIN SODIUM INJ 100 MG/2 ML VIAL (*BKC) IV PUSH ×3 (05:22→22:08)
[2024-01-02] MEDS: LACTATED RINGERS 1,000 ML 100 ML IV CONT ×2 (06:25→19:42)
[2024-01-02] MEDS: ENOXAPARIN 30 MG/0.3 ML SYRINGE SUB-Q (08:44)
[2024-01-02] MEDS: FAMOTIDINE 20 MG/2 ML VIAL IV PUSH ×2 (08:44→21:55)
[2024-01-02] MEDS: PANTOPRAZOLE SODIUM IV 40 MG VIAL IV PUSH (08:44)
--- NOTE | 2024-01-02 08:48 | PM.IMPN ---
Progress Note: A&P Assessment and Plan (1) Intra-abdominal lymphadenopathy: Code(s): R59.0 - Localized enlarged lymph nodes Status: Acute (2) CATHI (acute kidney injury): Code(s): N17.9 - Acute kidney failure, unspecified Status: Acute (3) Sepsis: Code(s): A41.9 - Sepsis, unspecified organism Status: Acute (4) Perforated abdominal viscus: Code(s): R19.8 - Other specified symptoms and signs involving the digestive system and abdomen Status: Acute (5) Seizure disorder: Code(s): G40.909 - Epilepsy, unspecified, not intractable, without status epilepticus Status: Chronic Plan Sepsis/ perforated gastric ulcer /peritonitis IV fluid resuscitation surgical consult status post exploratory lap with colostomy. rule out malignancy Repeat CBC CMP WBC is 10.9 -19.3 -20.9 Hemoglobin 12.5-12 -13 D-dimer 11.9 currently on Lovenox Two sets of Blood cultures urine cultures Monitor albumin' Monitoring of mental status. Steroids suggested if septic shock on his positive fluid resuscitation and vasopressors. NPO. except ice chips Urinary catheter. SCDs. Intensive spirometry. IV antibiotics Zosyn continue IV Zofran p.r.n.. IV hydromorphone for pain control CRF secondary to sepsis serum creatinine 1.2-1.9 -2.1 -2.7 Will continue hydration possible due to 3rd space fluid pre renal Sodium 132 -133 Avoid nephrotoxic drugs. Monitor antihypertensive drug therapy. Avoid NSAIDs. Routine CMP monitoring GFR. Monitor electrolytes especially potassium. Pharmacy does medications. Low back pain Previous x-rays of hip and spine unremarkable. Recent history of fall will repeat x-rays. Gait strengthening exercises PTOT History of seizure disorder currently on Dilantin and lamotrigine will talk to pharmacy and switch to IV elevated alkaline phosphatase could be taken to peritonitis Overall patient is stable take on IV antibiotics condition is critical spoke to patient's family and patient detail answered all questions Subjective Date/time seen: 01/02/24 08:48 Interval history: Patient doing well up on the chair denies any chest pain shortness for breath NG tube still in place feels much more alert and awake Review of Systems Review of Systems: All systems reviewed & are unremarkable except as noted in HPI and below Exam Narrative: GENERAL: Well appearing, no acute distress. HEAD: Normocephalic, atraumatic. NECK: Supple. No adenopathy, no masses. NG tube in place RESPIRATORY: respirations nonlabored. , no rales, wheezing. CARDIOVASCULAR: Regular rate and rhythm without murmurs, . Peripheral pulses 2+ and equal bilaterally. ABDOMINAL: Soft, tender, distended, no hepatosplenomegaly. No BS. Abdominal drain in place MUSCULOSKELETAL: no Epigastric and no hypochondrial tenderness SKIN: Warm, dry, NEURO: A&O X3. Moves all extremities Objective Data Vital Signs Vital Signs: Vital Signs - 24 hr 01/01/24 09:55 01/01/24 14:53 01/01/24 18:30 Temperature 36.3 C L 36.3 C L 36.6 C Pulse Rate 110 H 104 H 104 H Respiratory Rate 16 16 16 Blood Pressure 93/63 L 104/63 104/79 Pulse Oximetry 93 96 97 Oxygen Delivery Oxygen Flow Rate Fraction of Inspired Oxygen 01/01/24 19:44 01/01/24 21:36 01/02/24 00:00 Temperature 36.5 C 36.4 C Pulse Rate 100 100 Respiratory Rate 18 18 Blood Pressure 117/53 L 112/50 L Pulse Oximetry 97 97 99 Oxygen Delivery Nasal Cannula Oxygen Flow Rate 2 Fraction of Inspired Oxygen 01/02/24 04:00 01/02/24 08:14 Temperature 36.9 C Pulse Rate 100 Respiratory Rate 18 Blood Pressure 129/60 Pulse Oximetry 95 96 Oxygen Delivery Room Air Oxygen Flow Rate Fraction of Inspired Oxygen 21 Intake/Output Intake/Output: Intake & Output 12/30/23 12/31/23 01/01/24 01/02/24 23:59 23:59 23:59 23:59 Intake Total 2250 2380.0 1133.3 Output Total 110 1060 353 [place]
--- NOTE | 2024-01-02 09:24 | PM.PNGS ---
Progress Note: A&P Assessment and Plan (1) Perforated gastric ulcer: Code(s): K25.5 - Chronic or unspecified gastric ulcer with perforation Status: Acute Assessment and Plan: exam benign, ?cont leukocytosis, MARIAMA c minimal output, will get UGI today for further eval, cont abx, encourage OOB/IS Subjective Subjective Date/Time Seen: 01/02/24 09:24 Interval history: feels good, would like NG out, no abd pain, mild incisional soreness Review of Systems Review of Systems: All systems reviewed & are unremarkable except as noted in HPI and below Exam Const: General: cooperative, comfortable and no acute distress Resp: Auscultation: clear to auscultation bilaterally Cardio: Rate: regular rate Rhythm: regular rhythm GI: Inspection: normal to inspection, distended and incision GI Palp: Yes abdominal tenderness, Yes Soft to palpation, Yes Tenderness to palpation present (GI), No Guarding due to palpation present (GI) and No Rigid due to palpation Objective Data Vital Signs Vital Signs: Vital Signs - 24 hr 01/01/24 09:55 01/01/24 14:53 01/01/24 18:30 Temperature 36.3 C L 36.3 C L 36.6 C Pulse Rate 110 H 104 H 104 H Respiratory Rate 16 16 16 Blood Pressure 93/63 L 104/63 104/79 Pulse Oximetry 93 96 97 Oxygen Delivery Oxygen Flow Rate Fraction of Inspired Oxygen 01/01/24 19:44 01/01/24 21:36 01/02/24 00:00 Temperature 36.5 C 36.4 C Pulse Rate 100 100 Respiratory Rate 18 18 Blood Pressure 117/53 L 112/50 L Pulse Oximetry 97 97 99 Oxygen Delivery Nasal Cannula Oxygen Flow Rate 2 Fraction of Inspired Oxygen 01/02/24 04:00 01/02/24 08:14 Temperature 36.9 C Pulse Rate 100 Respiratory Rate 18 Blood Pressure 129/60 Pulse Oximetry 95 96 Oxygen Delivery Room Air Oxygen Flow Rate Fraction of Inspired Oxygen 21 Intake/Output Intake/Output: Intake & Output 12/30/23 12/31/23 01/01/24 01/02/24 23:59 23:59 23:59 23:59 Intake Total 2250 2380.0 1133.3 Output Total 110 1060 453 Balance 2140 1320.0 680.3 Meds/Results Medications: Active Medications Generic Name Dose Route Start Last Admin Trade Name Freq PRN Reason Stop Dose Admin Enoxaparin Sodium 30 mg 01/02/24 09:00 01/02/24 08:44 Enoxaparin 30 Mg/0.3 Ml Syringe SUB-Q 30 mg DAILY SAFIA Administration Famotidine 20 mg 12/31/23 21:00 01/02/24 08:44 Famotidine 20 Mg/2 Ml Vial IV PUSH 20 mg Q12HR SAFIA Administration Hydromorphone HCl 1 mg 12/31/23 14:36 01/01/24 22:13 Hydromorphone Hcl Inj (*Crx) 1 Mg/Ml Syr IV PUSH 1 mg Q2H PRN Administration Breakthrough Pain Rated 7-10 or NPO Hydromorphone HCl 0.5 mg 12/31/23 14:36 12/31/23 18:35 Hydromorphone Hcl Inj (*Crx) 1 Mg/Ml Syr IV PUSH 0.5 mg Q2H PRN Administration Breakthrough Pain Rated 4-6 or NPO Lactated Ringer's 1,000 mls @ 100 mls/hr 12/31/23 14:40 01/02/24 08:53 Lr - Lactated Ringers Iv IV CONT 100 mls/hr .Q10H SAFIA Infusion Ibuprofen 800 mg in 200 mls @ 400 mls/hr 12/31/23 14:36 01/01/24 03:48 Caldolor 800 Mg/200 Ml IVPB Infused Q6H PRN Infusion Breakthrough Pain Rated 1-3 or NPO Piperacillin Sod/Tazobactam Sod 2.25 gm in 50 mls @ 100 mls/hr 12/31/23 18:00 01/02/24 05:22 Zosyn 2.25 Gm/Ns 50 Ml IVPB 100 mls/hr Q6HR SAFIA Administration Naloxone HCl 0.1 mg 12/31/23 14:36 Naloxone Hcl 0.4 Mg/Ml Vial IV PUSH Q2M PRN Opiate Reversal Ondansetron HCl 4 mg 12/31/23 14:36 Ondansetron Inj 4 Mg/2 Ml Vial IV PUSH Q4H PRN Nausea And Vomiting Pantoprazole Sodium 40 mg 12/31/23 21:00 01/02/24 08:44 Pantoprazole Sodium Iv 40 Mg Vial IV PUSH 40 mg Q12HR SAFIA Administration Phenytoin Sodium 100 mg 01/01/24 14:00 01/02/24 05:22 Phenytoin Sodium Inj 100 Mg/2 Ml Vial (*Bkc) IV PUSH 100 mg Q8HR SAFIA Administration Radiology Results: ITS Impressions Abdomen/Pelvis CT 12/31/23 10:09 IMPRESSION: 1. Free intraperitonea
[2024-01-02] MEDS: IBUPROFEN IV 800 MG/200 ML 800 MG/200 ML BAG 400 MG IVPB (19:54)
[2024-01-03] VITALS (7 sets, daily range): BP systolic 99–132; BP diastolic 45–64; PULSE 92–113; RESP 18–20; TEMP 36.3–36.7; O2SAT 94–100
[2024-01-03] MEDS: PIPERACILLIN/TAZ 2.25G/NS 50ML 2.25 GM/50 ML BAG IVPB ×4 (00:04→18:05)
[2024-01-03] MEDS: HYDROmorphone HCL INJ (*CRX) 1 MG/ML SYR 0.5 MG IV PUSH (00:06)
[2024-01-03] MEDS: LACTATED RINGERS 1,000 ML 100 ML IV CONT (05:39)
[2024-01-03] MEDS: PHENYTOIN SODIUM INJ 100 MG/2 ML VIAL (*BKC) IV PUSH ×3 (05:40→21:22)
[2024-01-03 08:17] LABS: Basophils Absolute Auto 0.1 K/mm3 (0.0-0.1); Basophils Percent Auto 0.2 % (0.2-1.2); Hematocrit 34.5 % (37.0-47.0); Hemoglobin 11.1 g/dL (12.0-15.0); Immature Granulocyte Absolute 0.37 K/mm3 (0.00-0.031); Immature Granulocyte Percent A 1.8 % (0-0.5); Lymphocytes Absolute Auto 0.36 K/mm3 (0.9-3.2); Lymphocytes Percent Auto 1.7 % (18.3-44.2); Mean Corpuscular HGB Conc 32.2 g/dl (32-36); Mean Corpuscular Hemoglobin 31.2 pg (26-34); Mean Corpuscular Volume 96.9 fl (80-100); Mean Platelet Volume 9.5 fl (7.4-10.4); Monocytes Absolute Auto 1.6 K/mm3 (0.1-0.6); Monocytes Percent Auto 7.5 % (2.6-8.5); Neutrophils Absolute Auto 18.5 K/mm3 (1.3-6.7); Neutrophils Percent Auto 88.8 % (45.5-73.1); Platelet Count Result 311 k/mm3 (150-375); Red Blood Count 3.56 M/mm3 (4.2-5.4); Red Cell Distribution Width 14.2 % (11.5-14.5); White Blood Count 20.9 K/mm3 (4.5-10.0)
[2024-01-03] MEDS: FAMOTIDINE 20 MG/2 ML VIAL IV PUSH ×2 (09:00→20:55)
[2024-01-03] MEDS: ENOXAPARIN 30 MG/0.3 ML SYRINGE SUB-Q (09:00)
--- NOTE | 2024-01-03 09:16 | PM.IMPN ---
Progress Note: A&P Assessment and Plan (1) Sepsis: Code(s): A41.9 - Sepsis, unspecified organism Status: Acute Assessment and Plan: - lactic acid: WNL on admission - IV fluid resuscitation - suspected source: perforated gastric ulcer - blood cultures drawn on 12/30: NGTD - Urine culture: No growth. Continue urinary catheter. - IV antibiotics: Zosyn started on 12/30 (2) Perforated gastric ulcer: Code(s): K25.5 - Chronic or unspecified gastric ulcer with perforation Status: Acute Assessment and Plan: CT abdomen/pelvis 12/30: Free intraperitoneal gas, consistent with perforated viscus. Large volume of ascites. Abdominal and pelvic lymphadenopathy suspicious for metastatic disease. Moderate bilateral hydronephrosis.Gallbladder distention, which may be secondary to fasting or duct obstruction. - S/p exploratory laparotomy, extensive washout, repair of perforated gastric ulcer with Ari patch on 12/[address] Mckee - Continue IV Zosyn and IV Protonix. - Encouraged getting up to chair and increasing activity as tolerated. - Upper GI series 01/01: No extraluminal leakage of contrast - Abdomen/pevlis CT: ordered (3) CATHI (acute kidney injury): Code(s): N17.9 - Acute kidney failure, unspecified Status: Acute Assessment and Plan: Likely secondary to sepsis serum creatinine 1.2-1.9 -2.1 - 2.7 - 3.1 Sodium WNL - Avoid nephrotoxic drugs. - Monitor antihypertensive drug therapy. - Avoid NSAIDs. - Routine CMP monitoring GFR. - Monitor electrolytes especially potassium. - Pharmacy does medications. (4) Seizure disorder: Code(s): G40.909 - Epilepsy, unspecified, not intractable, without status epilepticus Status: Chronic Assessment and Plan: Chronic. Continue home medications. - Phenytoin and lamictal labs ordered - Phenytoin 100 mg TID - Lamotrigine (5) DVT (deep venous thrombosis): Code(s): I82.409 - Acute embolism and thrombosis of unspecified deep veins of unspecified lower extremity Status: Acute Assessment and Plan: Venous doppler 12/28/23 revealed a deep vein thrombosis involving the left posterior tibial and peroneal veins. Patient was started on eliquis 10 mg BID at that time. - Eliquis currently on hold following surgery, will continue to hold per surgery - DVT ppx with lovenox - monitor Time Spent With Patient Time with patient: 25 - 35 minutes Subjective Date/time seen: 01/03/24 09:16 Interval history: Patient is pleasant sitting up in her chair with sister at bedside. She states she is feeling good today. She still has the NG tube in place per surgery for bowel rest, NG clamped and CT ordered to assess need. The Upper GI series was negative for leak. SHe remains on the zosyn, however she continues to have a leukocytosis of 20,000. Blood culture and urine culture negative. She denies chest pain, shortness of breath, nausea/vomiting and changes in bladder. She has not had bowel movement or passed gas since the operation. Review of Systems Review of Systems: All systems reviewed & are unremarkable except as noted in HPI and below Exam Narrative: AF HR 92 RR 18 SpO2 98 BP 132/56 General: female in no acute respiratory distress who is nontoxic appearing, sitting up in chair HEENT: Normocephalic. Atraumatic. Pupils equal round reactive to light. Extraocular movement intact. Sclera clear and anicteric. No facial asymmetry. Chest: Lungs are clear to auscultation bilaterally. No wheezes or crackles. CV: Heart was regular rate and rhythm. S1-S2. No murmurs, gallops, or rubs. Abd: Abdomen was soft. Tenderness. Nondistended. Positive bowel sounds. No organomegaly or masses. Ext: Left lower extremity edema. No clubbing, cyanosis. 2+ DP pulses bilaterally. Neuro: Patient is alert and oriented x1 (person). Cranial nerves 2-12 are intact. Speech is clear. Psych: Normal mood and affect. Patient is pleasant and cooperative.
[2024-01-03 10:00] LABS: Anion Gap 15 mmol/L (4-12); Blood Urea Nitrogen 55 mg/dL (7-17); Calcium 7.6 mg/dL (8.4-10.2); Carbon Dioxide 17 mmol/L (22-30); Chloride 105 mmol/L (98-107); Estimated CRCL calculation 14 ml/min; Estimated Glomerular Filt Rate 15; Glucose 87 mg/dL (65-110); Potassium 3.8 mmol/L (3.4-5.0); Sodium 137 mmol/L (137-145)
--- NOTE | 2024-01-03 10:28 | PM.PNGS ---
Progress Note: A&P Assessment and Plan (1) Perforated gastric ulcer: Code(s): K25.5 - Chronic or unspecified gastric ulcer with perforation Status: Acute Assessment and Plan: UGI c no leak, exam benign, still c leukocytosis, will get CT for further eval Subjective Subjective Date/Time Seen: 01/03/24 10:28 Interval history: feels good, wants NG out, still c/o lower back pain Review of Systems Review of Systems: All systems reviewed & are unremarkable except as noted in HPI and below Exam Const: General: cooperative, comfortable and no acute distress Resp: Auscultation: clear to auscultation bilaterally Cardio: Rate: regular rate Rhythm: regular rhythm GI: Inspection: normal to inspection and incision GI Palp: Yes abdominal tenderness, Yes Soft to palpation, Yes Tenderness to palpation present (GI), No Guarding due to palpation present (GI) and No Rigid due to palpation Objective Data Vital Signs Vital Signs: Vital Signs - 24 hr 01/02/24 15:10 01/02/24 18:34 01/02/24 20:00 Temperature 36.9 C 37.1 C 37.2 C Pulse Rate 120 H 115 H 104 H Respiratory Rate 20 16 18 Blood Pressure 126/59 L 135/67 109/64 Pulse Oximetry 100 99 98 Oxygen Delivery 01/03/24 00:00 01/03/24 04:00 01/03/24 08:43 Temperature 36.7 C 36.3 C L 36.4 C Pulse Rate 106 H 92 98 Respiratory Rate 18 18 18 Blood Pressure 129/61 132/56 L 120/60 Pulse Oximetry 98 98 96 Oxygen Delivery 01/03/24 09:30 Temperature Pulse Rate Respiratory Rate Blood Pressure Pulse Oximetry Oxygen Delivery Room Air Intake/Output Intake/Output: Intake & Output 12/31/23 01/01/24 01/02/24 01/03/24 23:59 23:59 23:59 23:59 Intake Total 2250 2380.0 2400.0 1395 Output Total 110 1060 1456 1425 Balance 2140 1320.0 944.0 -30 Meds/Results Medications: Active Medications Generic Name Dose Route Start Last Admin Trade Name Freq PRN Reason Stop Dose Admin Enoxaparin Sodium 30 mg 01/02/24 09:00 01/03/24 09:00 Enoxaparin 30 Mg/0.3 Ml Syringe SUB-Q 30 mg DAILY SAFIA Administration Famotidine 20 mg 12/31/23 21:00 01/03/24 09:00 Famotidine 20 Mg/2 Ml Vial IV PUSH 20 mg Q12HR SAFIA Administration Hydromorphone HCl 1 mg 12/31/23 14:36 01/01/24 22:13 Hydromorphone Hcl Inj (*Crx) 1 Mg/Ml Syr IV PUSH 1 mg Q2H PRN Administration Breakthrough Pain Rated 7-10 or NPO Hydromorphone HCl 0.5 mg 12/31/23 14:36 01/03/24 00:06 Hydromorphone Hcl Inj (*Crx) 1 Mg/Ml Syr IV PUSH 0.5 mg Q2H PRN Administration Breakthrough Pain Rated 4-6 or NPO Lactated Ringer's 1,000 mls @ 100 mls/hr 12/31/23 14:40 01/03/24 05:39 Lr - Lactated Ringers Iv IV CONT 100 mls/hr .Q10H SAFIA Administration Ibuprofen 800 mg in 200 mls @ 400 mls/hr 12/31/23 14:36 01/02/24 20:24 Caldolor 800 Mg/200 Ml IVPB Infused Q6H PRN Infusion Breakthrough Pain Rated 1-3 or NPO Piperacillin Sod/Tazobactam Sod 2.25 gm in 50 mls @ 100 mls/hr 12/31/23 18:00 01/03/24 06:10 Zosyn 2.25 Gm/Ns 50 Ml IVPB Infused Q6HR SAFIA Infusion Naloxone HCl 0.1 mg 12/31/23 14:36 Naloxone Hcl 0.4 Mg/Ml Vial IV PUSH Q2M PRN Opiate Reversal Ondansetron HCl 4 mg 12/31/23 14:36 Ondansetron Inj 4 Mg/2 Ml Vial IV PUSH Q4H PRN Nausea And Vomiting Phenytoin Sodium 100 mg 01/01/24 14:00 01/03/24 05:40 Phenytoin Sodium Inj 100 Mg/2 Ml Vial (*Bkc) IV PUSH 100 mg Q8HR SAFIA Administration Radiology Results: ITS Impressions Abdomen/Pelvis CT 12/31/23 10:09 IMPRESSION: 1. Free intraperitoneal gas, consistent with perforated viscus. I called this result to Dr. Mckeon. 2. Small pleural effusions. 3. Large volume of ascites. 4. Abdominal and pelvic lymphadenopathy suspicious for metastatic disease. 5. Moderate bilateral hydronephrosis. 6. Gallbladder distention, which may be secondary to fasting or duct obstruction. Hip/Pelvis X-Ray 01/01/24 10:52 Impression: 1: No acute
--- NOTE | 2024-01-03 12:20 | PCNFU ---
Nutrition Follow-Up Complete: Altered GI function as related to perforated gastric ulcer as evidenced by NGT to suction/NPO. Goal: Meet estimated nutritional needs. Patient has little progress towards goal. We will continue current goal. Pt current nutrition is NPO x 4 days. Nutrition recommendation: advance diet as tolerated per MD orders. Last recorded weight is 70 kg, up from 68.7 kg on admit. Bowel Motility: +BM reported 12/29 Labs Reviewed: GFR 15, BUN 55, Cr 3.10 Meds Noted: Dilaudid, LR, Zosyn Skin: WNL Additional Notes: Patient remains NPO x 4 days. Spoke with nursing today. CT scan then plans to discontinue NGT. Recommend advancing diet as tolerated per MD orders. RD will monitor, weight, labs, skin, diet orders every 3 days.
[2024-01-03 15:38] LABS: Phenytoin Dilantin 6 ug/mL (10-20)
[2024-01-03] MEDS: HYDROmorphone HCL INJ (*CRX) 1 MG/ML SYR IV PUSH ×3 (18:51→22:40)
--- NOTE | 2024-01-03 22:05 | PC.NURSE ---
At 1945 hrs the patient's family used the call light and notified the staff that the patient was having abdominal pain. When this nurse walked into the room it was observed that the patient's MARIAMA drain was completely pulled out of her body. Neither the patient nor the family were able to identify how the event occurred. The patient's dressing and gown were saturated with clear to yellowish drainage. Vital signs were taken at this time and revealed a stable condition all within normal limits. This nurse notified both the surgeon and the night hospitalist of the situation. Orders were received to change the saturated dressing and continue to monitor patient condition. Medication was given to help control pain.
[2024-01-04] VITALS (16 sets, daily range): BP systolic 82–158; BP diastolic 54–107; PULSE 65–122; RESP 16–20; TEMP 36–36.7; O2SAT 84–100
[2024-01-04] MEDS: DICYCLOMINE HCL 10 MG CAPSULE PO (00:16)
[2024-01-04] MEDS: ACETAMINOPHEN 500 MG TABLET PO (00:16)
[2024-01-04] MEDS: PIPERACILLIN/TAZ 2.25G/NS 50ML 2.25 GM/50 ML BAG IVPB ×4 (00:18→19:04)
[2024-01-04] MEDS: LACTATED RINGERS 1,000 ML 100 ML IV CONT ×3 (02:27→23:34)
[2024-01-04] MEDS: HYDROmorphone HCL INJ (*CRX) 1 MG/ML SYR IV PUSH ×3 (03:21→20:14)
[2024-01-04] MEDS: PHENYTOIN SODIUM INJ 100 MG/2 ML VIAL (*BKC) IV PUSH ×3 (05:15→21:54)
[2024-01-04 05:30] LABS: Hematocrit 38.6 % (37.0-47.0); Hemoglobin 12.3 g/dL (12.0-15.0); Mean Corpuscular HGB Conc 31.9 g/dl (32-36); Mean Corpuscular Hemoglobin 30.8 pg (26-34); Mean Corpuscular Volume 96.5 fl (80-100); Mean Platelet Volume 9.5 fl (7.4-10.4); Platelet Count Result 413 k/mm3 (150-375); Red Cell Distribution Width 14.6 % (11.5-14.5); White Blood Count 24.2 K/mm3 (4.5-10.0)
[2024-01-04 05:48] LABS: Anion Gap 17 mmol/L (4-12); Blood Urea Nitrogen 58 mg/dL (7-17); Calcium 7.6 mg/dL (8.4-10.2); Carbon Dioxide 13 mmol/L (22-30); Chloride 106 mmol/L (98-107); Estimated CRCL calculation 12 ml/min; Estimated Glomerular Filt Rate 13; Glucose 155 mg/dL (65-110); Potassium 4.4 mmol/L (3.4-5.0); Sodium 136 mmol/L (137-145)
[2024-01-04 06:34] LABS: Procalcitonin 13.5 ng/mL
--- NOTE | 2024-01-04 08:04 | ECG_ITS ---
[facility] [address] Test Date: 2024-01-04 Pat Name: Kelsie Brown Department: Room: 259 Gender: F Pressroom Worker: NICOLA : 1955 Requested By: Aruna Anders Order Number: [id number] Reading MD: Marshal Del Valle M.D. Measurements Intervals [place] Rate: 108 P: 46 ND: 162 QRS: -24 QRSD: 91 T: 62 QT: 333 QTc: 448 Interpretive Statements SINUS TACHYCARDIA BORDERLINE LEFT AXIS DEVIATION [QRS AXIS < -20] LEFT VENTRICULAR HYPERTROPHY AND ST-T CHANGE [VOLTAGE CRITERIA PLUS ST/T ABNORMALITY] ABNORMAL ECG Compared to ECG 12/31/2023 11:42:[address] SEGMENT DEPRESSION IS IMPROVED Electronically Signed On 01-05-2024 07:40:47 CDT by Marshal Del Valle M.D.
--- NOTE | 2024-01-04 08:07 | PM.CCN ---
Critical Care Event Note Summary Code activated: No Narrative: This case had a high probability of a clinically significant, sudden, or life threatening deterioration of this patient's condition which required my full and direct attention, intervention and personal management. -reported that pt had witness fall from chair to ground. Pt denies any LOC, she is A/o 2-3 at baseline, family by the bedside witnessed fall, citing they felt no injury occurred from fall.Pt admits to ongoing bilateral back pain. She denies any chest pain, headache, n/v, fever or chills. -Vitals: 97.5, 105 HR, RR17, Spo2 97, 94/63 -EKG -Insert Lozada Cath -continue to monitor -order CT Head, CT Abdomen/Hip/Pelvis Xray, Renal US -restart IV Critical care time: less than 30 mins
[2024-01-04 08:10] LABS: Glucose Point of Care 133 mg/dl (65-105)
--- NOTE | 2024-01-04 09:04 | PM.IMPN ---
Progress Note: A&P Assessment and Plan (1) Sepsis: Code(s): A41.9 - Sepsis, unspecified organism Status: Acute Assessment and Plan: - lactic acid: WNL on admission -continue IV fluid resuscitation - suspected source: perforated gastric ulcer - blood cultures drawn on 12/30: NGTD - Urine culture: No growth. Continue urinary catheter. - IV antibiotics: Continue Zosyn started on 12/30 (2) Perforated gastric ulcer: Code(s): K25.5 - Chronic or unspecified gastric ulcer with perforation Status: Acute Assessment and Plan: CT abdomen/pelvis 12/30: Free intraperitoneal gas, consistent with perforated viscus. Large volume of ascites. Abdominal and pelvic lymphadenopathy suspicious for metastatic disease. Moderate bilateral hydronephrosis.Gallbladder distention, which may be secondary to fasting or duct obstruction. - S/p exploratory laparotomy, extensive washout, repair of perforated gastric ulcer with Ari patch on 12/[address] Mckee - Continue IV Zosyn and IV Protonix. - Encouraged getting up to chair and increasing activity as tolerated. - Upper GI series 01/01: No extraluminal leakage of contrast - Abdomen/pevlis CT: ordered 01/04/2024 -s/p: Exploratory laparotomy patient has pulled out drain, surgery team aware - repeat abdomen/pelvis CT (3) CATHI (acute kidney injury): Code(s): N17.9 - Acute kidney failure, unspecified Status: Acute Assessment and Plan: Likely secondary to sepsis serum creatinine 1.2-1.9 -2.1 - 2.7 - 3.1 Sodium WNL - Avoid nephrotoxic drugs. - Monitor antihypertensive drug therapy. - Avoid NSAIDs. - Routine CMP monitoring GFR. - Monitor electrolytes especially potassium. - Pharmacy does medications. 01/04/2024: Serum creatinine elevated 3.60 GFR 13 -renal ultrasound reveals: increased echogenicity of the renal parenchyma bilateral suggesting bilateral chronic renal disease -consult nephrology -continue plan above (4) Seizure disorder: Code(s): G40.909 - Epilepsy, unspecified, not intractable, without status epilepticus Status: Chronic Assessment and Plan: Chronic. Continue home medications. - Phenytoin and Lamictal labs ordered - Phenytoin 100 mg TID - check Lamotrigine level 01/04/2024: Continue plan above (5) DVT (deep venous thrombosis): Code(s): I82.409 - Acute embolism and thrombosis of unspecified deep veins of unspecified lower extremity Status: Acute Assessment and Plan: Venous doppler 12/28/23 revealed a deep vein thrombosis involving the left posterior tibial and peroneal veins. Patient was started on eliquis 10 mg BID at that time. - Eliquis currently on hold following surgery, will continue to hold per surgery - D/c Lovenox, due to worsening kidney function - monitor -pt with tachycardia, SOB and fatigue concern for PE will order V/Q scan due to elevated serum creatinine 3.60 unable to due CTA -restart Eliquis, pharmacy consulted Time Spent With Patient Time with patient: 25 - 35 minutes Subjective Date/time seen: 01/04/24 09:04 Interval history: Pt is lying in bed s/p: slip to the ground from her chair. Family by the bedside report pt became weak while trying to transfer back to bed with staff when she encountered an assisted fall to ground. Pt, staff, and family report no head injury, pt c/o of ongoing back pain since admission, at this time she denies any increase pain at this time. Exam Narrative: General: female in no acute respiratory distress who is chronically ill- appearing, laying in bed with family by the bedside HEENT: Normocephalic. Atraumatic. Pupils equal round reactive to light. Extraocular movement intact. Sclera clear and anicteric. No facial asymmetry. Chest: Lungs are clear to auscultation bilaterally. No wheezes or crackles. CV: Heart was regular rate and rhythm. S1-S2. No murmurs, gallops, or rubs. Abd: Abdomen was soft. Tenderness. Nondistended. P
--- NOTE | 2024-01-04 09:45 | PM.PNGS ---
Progress Note: A&P Assessment and Plan (1) Perforated gastric ulcer: Code(s): K25.5 - Chronic or unspecified gastric ulcer with perforation Status: Acute Assessment and Plan: no evidence of further leak on imaging, abd exam benign, had RUQ drain placed yesterday, worsening agitation and leukocytosis, repeat CT today, cont IV abx Subjective Subjective Date/Time Seen: 01/04/24 09:45 Interval history: agitated, although A+O x3, pulled out MARIAMA and multiple IVs overnight, c/o lower back pain Review of Systems Review of Systems: All systems reviewed & are unremarkable except as noted in HPI and below Exam Const: General: anxious, ill appearing and uncomfortable Resp: Auscultation: diminished lung sounds Cardio: Rate: tachycardic Rhythm: regular rhythm GI: Inspection: normal to inspection and incision GI Palp: Yes abdominal tenderness and Yes Soft to palpation Other: incision C/D/I RUQ drain c serous drainage Objective Data Vital Signs Vital Signs: Vital Signs - 24 hr 01/03/24 11:51 01/03/24 12:59 01/03/24 17:20 Temperature 36.5 C 36.6 C Pulse Rate 100 94 Respiratory Rate 18 18 Blood Pressure 123/59 L 128/64 Pulse Oximetry 96 100 Oxygen Delivery Room Air 01/03/24 20:00 01/03/24 21:25 01/04/24 00:00 Temperature 36.4 C L 36.0 C L Pulse Rate 113 H 65 Respiratory Rate 20 20 Blood Pressure 99/45 L 106/64 Pulse Oximetry 94 84 L Oxygen Delivery Room Air 01/04/24 04:00 01/04/24 08:00 Temperature 36.1 C L 36.4 C Pulse Rate 82 105 H Respiratory Rate 18 17 Blood Pressure 158/107 H 94/63 L Pulse Oximetry 96 97 Oxygen Delivery Intake/Output Intake/Output: Intake & Output 01/01/24 01/02/24 01/03/24 01/04/24 23:59 23:59 23:59 23:59 Intake Total 2380.0 2400.0 1975 1150 Output Total 1060 1456 1425 475 Balance 1320.0 944.0 550 675 Meds/Results Medications: Active Medications Generic Name Dose Route Start Last Admin Trade Name Freq PRN Reason Stop Dose Admin Enoxaparin Sodium 30 mg 01/02/24 09:00 01/04/24 09:39 Enoxaparin 30 Mg/0.3 Ml Syringe SUB-Q Not Given DAILY SAFIA Famotidine 20 mg 12/31/23 21:00 01/03/24 20:55 Famotidine 20 Mg/2 Ml Vial IV PUSH 20 mg Q12HR SAFIA Administration Hydromorphone HCl 1 mg 12/31/23 14:36 01/04/24 03:21 Hydromorphone Hcl Inj (*Crx) 1 Mg/Ml Syr IV PUSH 1 mg Q2H PRN Administration Breakthrough Pain Rated 7-10 or NPO Hydromorphone HCl 0.5 mg 12/31/23 14:36 01/03/24 00:06 Hydromorphone Hcl Inj (*Crx) 1 Mg/Ml Syr IV PUSH 0.5 mg Q2H PRN Administration Breakthrough Pain Rated 4-6 or NPO Lactated Ringer's 1,000 mls @ 100 mls/hr 12/31/23 14:40 01/04/24 02:27 Lr - Lactated Ringers Iv IV CONT 100 mls/hr .Q10H SAFIA Administration Ibuprofen 800 mg in 200 mls @ 400 mls/hr 12/31/23 14:36 01/02/24 20:24 Caldolor 800 Mg/200 Ml IVPB Infused Q6H PRN Infusion Breakthrough Pain Rated 1-3 or NPO Piperacillin Sod/Tazobactam Sod 2.25 gm in 50 mls @ 100 mls/hr 12/31/23 18:00 01/04/24 05:15 Zosyn 2.25 Gm/Ns 50 Ml IVPB 100 mls/hr Q6HR SAFIA Administration Naloxone HCl 0.1 mg 12/31/23 14:36 Naloxone Hcl 0.4 Mg/Ml Vial IV PUSH Q2M PRN Opiate Reversal Ondansetron HCl 4 mg 12/31/23 14:36 Ondansetron Inj 4 Mg/2 Ml Vial IV PUSH Q4H PRN Nausea And Vomiting Phenytoin Sodium 100 mg 01/01/24 14:00 01/04/24 05:15 Phenytoin Sodium Inj 100 Mg/2 Ml Vial (*Bkc) IV PUSH 100 mg Q8HR SAFIA Administration Radiology Results: ITS Impressions Hip/Pelvis X-Ray 01/01/24 10:52 Impression: 1: No acute abnormality of the pelvis or hips. Lumbar Spine X-Ray 01/01/24 10:53 IMPRESSION: 1. Severe lower lumbar spondylosis. Upper GI Series 01/02/24 10:16 IMPRESSION: 1. No extraluminal leakage of contrast. Abdomen/Pelvis CT 01/03/24 17:06 IMPRESSION: 1. Small pleural effusions. 2. Gallbladder distention, which
[2024-01-04] MEDS: FAMOTIDINE 20 MG/2 ML VIAL IV PUSH ×2 (09:51→20:14)
[2024-01-04] MEDS: LORazepam INJ (*CRX) 2 MG/ML VIAL 0.5 MG IV PUSH (09:52)
--- NOTE | 2024-01-04 11:00 | PC.NURSE ---
PT TAKEN DOWN FOR CT
--- NOTE | 2024-01-04 11:20 | P.CONNP_ITS ---
Assessment and Plan Assessment and plan (1) CATHI (acute kidney injury): Code(s): N17.9 - Acute kidney failure, unspecified Status: Acute Assessment and Plan: * suspect multifactorial etiology: * infection/sepsis * prerenal factors * obstruction ( moderate bilateral hydronephrosis on recent imaging) * NSAID use (IV ibuprofen) * erd sta * check urine studies and CPK * follow-up on repeat CT and renal ultrasound * escamilla catheter placed earlier this AM * remains at risk for CONSULTING PRACTICE MANAGER/hemodialysis * follow trend of repeat labs and UOP (2) Metabolic acidosis: Code(s): E87.20 - Acidosis, unspecified Status: Acute Assessment and Plan: * due to CATHI/ARF * will try oral sodium bicarbonate to compensate * may need to consider IV bicarb gtt * follow CO2 (3) Perforated gastric ulcer: Code(s): K25.5 - Chronic or unspecified gastric ulcer with perforation Status: Acute Assessment and Plan: * as noted by admission imaging: * CT abdomen/pelvis on 12/30 -- Free intraperitoneal gas, consistent with perforated viscus. Large volume of ascites. Abdominal and pelvic lymphadenopathy suspicious for metastatic disease. Gallbladder distention, which may be secondary to fasting or duct obstruction * s/p exploratory laparotomy with extensive washout, repair of perforated gastric ulcer with Ari patch on 12/[address] Mckee * continue IV antibiotics * follow culture data * follow-up on repeat CT of abdomen/pelvis * General Surgery following (4) Sepsis: Code(s): A41.9 - Sepsis, unspecified organism Status: Acute Assessment and Plan: * presumed source is #3 * culture data noted * on IVF resuscitation * stable hemodynamics * continue supportive therapy (5) DVT (deep venous thrombosis): Code(s): I82.409 - Acute embolism and thrombosis of unspecified deep veins of unspecified lower extremity Status: Acute Assessment and Plan: * venous doppler with deep vein thrombosis involving the left posterior tibial and peroneal veins * to start anticoagulation I will continue follow the patient with you while she remains hospitalized make further recommendations as deemed necessary Thank you for allowing me to participate in the care of this patient. History of Present Illness Reason for Consult Consult date: 01/04/24 Reason for consult: acute renal failure Chief Complaint Chief complaint: Perforated Gastric Ulcer History of Present Illness Narrative: Most of the information that I have obtained is from review of the electronic medical record as well as discussion with the physician/ nurses involved in the patient's care as well as further information supplemented by her family at bedside as the patient is somewhat of a poor historian and is difficult to get a full and complete history of the events that led to her presentation/ admission to the hospital. The patient is a 68-year-old female with a past medical history as outlined below who presented to [facility] Emergency Room due to complaints of abdominal pain. Apparently, the patient has been having issues and problems with abdominal pain for the last few days if not longer. It is difficult for the patient to given a specific location of where the abdominal pain is other than it is present. Associated with the abdominal pain is poor appetite and diminished oral intake over last several days as well. On the day of admission, her abdominal pain was more severe than previously which prompted her sister to
--- NOTE | 2024-01-04 11:20 | PM.CNNEP ---
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 Large volume of ascites. Abdominal and pelvic lymphadenopathy suspicious for metastatic disease. Gallbladder distention, which may be secondary to fasting or duct obstruction s/p exploratory laparotomy with extensive washout, repair of perforated gastric ulcer with Ari patch on 12/[address] Mckee continue IV antibiotics follow culture data follow-up on repeat CT of abdomen/pelvis General Surgery following (4) Sepsis: Code(s): A41.9 - Sepsis, unspecified organism Status: Acute Assessment and Plan: presumed source is #3 culture data noted on IVF resuscitation stable hemodynamics continue supportive therapy (5) DVT (deep venous thrombosis): Code(s): I82.409 - Acute embolism and thrombosis of unspecified deep veins of unspecified lower extremity Status: Acute Assessment and Plan: venous doppler with deep vein thrombosis involving the left posterior tibial and peroneal veins to start anticoagulation I will continue follow the patient with you while she remains hospitalized make further recommendations as deemed necessary Thank you for allowing me to participate in the care of this patient. History of Present Illness Reason for Consult Consult date: 01/04/24 Reason for consult: acute renal failure Chief Complaint Chief complaint: Perforated Gastric Ulcer History of Present Illness Narrative: Most of the information that I have obtained is from review of the electronic medical record as well as discussion with the physician/ nurses involved in the patient's care as well as further information supplemented by her family at bedside as the patient is somewhat of a poor historian and is difficult to get a full and complete history of the events that led to her presentation/ admission to the hospital. The patient is a 68-year-old female with a past medical history as outlined below who presented to [facility] Emergency Room due to complaints of abdominal pain. Apparently, the patient has been having issues and problems with abdominal pain for the last few days if not longer. It is difficult for the patient to given a specific location of where the abdominal pain is other than it is present. Associated with the abdominal pain is poor appetite and diminished oral intake over last several days as well. On the day of admission, her abdominal pain was more severe than previously which prompted her sister to call EMS and she was subsequently transferred to the ER for further assessment. It should be noted that the patient recently was started on anticoagulation after her primary care physician diagnosed her with a DVT in her left posterior tibial/peroneal veins by venous Dopplers done earlier this month. Workup and evaluation emergency room demonstrated the patient being afebrile but was tachycardic in the 110-range in association
--- NOTE | 2024-01-04 11:45 | PC.NURSE ---
PT RETURNED TO ROOM FROM CT
[2024-01-04 17:29] LABS: Alveolar/Arterial O2 Gradient 81.7 mmHg; Base Excess ABG -9.2 mEq/l (+/-2.0); Device NASAL CANNULA; Fractional Inspired Oxygen 30 %; HCO3 ABG 15.5 mEq/l (22.0-26.0); Liters per Minute 2.5 LPM; Modified Allen's Test Pass; Oxygen Content ABG 17.5 %vol (16.0-22.0); Oxyhemoglobin 96.6 % THb (90.0-100.0); PCO2 ABG 30.5 mmHg (35.0-45.0); PO2 ABG 96.4 mmHg (80.0-100.0); PO2 FiO2 Ratio Arterial Blood 3.21 %; Site Drawn RIGHT RADIAL; Total Hemoglobin 12.8 g/dL (12.0-18.0); pH ABG 7.325 (7.350-7.450)
--- NOTE | 2024-01-04 17:35 | PC.NURSE ---
pt taken down for VQ scan
[2024-01-04] MEDS: diazePAM INJ (*CRX) 10 MG/2 ML SYRINGE 2.5 MG IV PUSH (18:05)
--- NOTE | 2024-01-04 18:30 | PC.NURSE ---
pt returned to room
[2024-01-04 18:57] LABS: Anion Gap 15 mmol/L (4-12); Blood Urea Nitrogen 62 mg/dL (7-17); Calcium 7.7 mg/dL (8.4-10.2); Carbon Dioxide 13 mmol/L (22-30); Chloride 104 mmol/L (98-107); Estimated CRCL calculation 12 ml/min; Estimated Glomerular Filt Rate 12; Glucose 154 mg/dL (65-110); Potassium 4.4 mmol/L (3.4-5.0); Sodium 132 mmol/L (137-145)
[2024-01-04] MEDS: APIXABAN 5 MG TABLET 10 MG PO (20:13)
[2024-01-04] MEDS: SODIUM BICARBONATE TAB 650 MG TABLET PO (20:14)
[2024-01-04 20:18] LABS: Eosinophil Urine None Seen % (None Seen); Urine Eos QC 2nd Tech Confirmed
[2024-01-04 20:28] LABS: Creatinine Urine 88.9 mg/dL; Sodium Urine Random 52 meq/L; Total Protein Urine Random 182 mg/dL; Ur Ttl Prot Creatinine Ratio 2.05 mg/mg (0-0.20); Urea Random Urine 213 MG/DL
[2024-01-05] VITALS (65 sets, daily range): BP systolic 60–125; BP diastolic 40–91; PULSE 95–117; RESP 14–30; TEMP 36.5–37; O2SAT 80–100
[2024-01-05] MEDS: PIPERACILLIN/TAZ 2.25G/NS 50ML 2.25 GM/50 ML BAG IVPB ×2 (00:16→05:51)
[2024-01-05] MEDS: PHENYTOIN SODIUM INJ 100 MG/2 ML VIAL (*BKC) IV PUSH ×3 (05:51→21:18)
[2024-01-05 06:07] LABS: Creatine Kinase 96 U/L (30-135)
[2024-01-05 06:08] LABS: Alanine Aminotransferase 15 U/L (6-35); Albumin Level 2.8 g/dL (3.5-5.1); Alkaline Phosphatase 74 U/L (38-126); Anion Gap 16 mmol/L (4-12); Aspartate Amino Transferase 30 U/L (14-36); Bilirubin,Total 1.5 mg/dL (0.2-1.3); Blood Urea Nitrogen 64 mg/dL (7-17); Calcium 7.6 mg/dL (8.4-10.2); Carbon Dioxide 11 mmol/L (22-30); Chloride 105 mmol/L (98-107); Estimated CRCL calculation 10 ml/min; Estimated Glomerular Filt Rate 10; Glucose 147 mg/dL (65-110); Potassium 5.1 mmol/L (3.4-5.0); Sodium 132 mmol/L (137-145)
[2024-01-05 06:22] LABS: Basophils Absolute Auto 0.1 K/mm3 (0.0-0.1); Basophils Percent Auto 0.5 % (0.2-1.2); Eosinophils Absolute Auto 0.3 K/mm3 (0-0.3); Eosinophils Percent Auto 1.1 % (0-4.4); Hematocrit 38.1 % (37.0-47.0); Hemoglobin 12.4 g/dL (12.0-15.0); Immature Granulocyte Absolute 0.33 K/mm3 (0.00-0.031); Immature Granulocyte Percent A 1.3 % (0-0.5); Lymphocytes Absolute Auto 0.36 K/mm3 (0.9-3.2); Lymphocytes Percent Auto 1.5 % (18.3-44.2); Mean Corpuscular HGB Conc 32.5 g/dl (32-36); Mean Corpuscular Hemoglobin 31.6 pg (26-34); Mean Corpuscular Volume 97.2 fl (80-100); Mean Platelet Volume 9.8 fl (7.4-10.4); Monocytes Absolute Auto 1.4 K/mm3 (0.1-0.6); Monocytes Percent Auto 5.8 % (2.6-8.5); Neutrophils Absolute Auto 22.2 K/mm3 (1.3-6.7); Neutrophils Percent Auto 89.8 % (45.5-73.1); Nucleated Red Blood Cells Perc 0.8 % (0.0-0.2); Platelet Count Result 345 k/mm3 (150-375); Red Blood Count 3.92 M/mm3 (4.2-5.4); Red Cell Distribution Width 14.8 % (11.5-14.5); White Blood Count 24.8 K/mm3 (4.5-10.0)
[2024-01-05 07:07] LABS: Platelet Estimate Adequate (Adequate)
[2024-01-05 07:08] LABS: Burr Cells 1+; Poikilocytosis 1+; Schistocytes Rare
[2024-01-05 07:13] LABS: Hepatitis B Surface Antigen Negative (Negative)
[2024-01-05 07:27] LABS: Hepatitis B Surface Anti Res Negative
[2024-01-05] MEDS: FAMOTIDINE 20 MG/2 ML VIAL IV PUSH (09:28)
[2024-01-05] MEDS: LACTATED RINGERS 1,000 ML 100 ML IV CONT (10:16)
--- NOTE | 2024-01-05 11:02 | PM.IMPN ---
Progress Note: A&P Assessment and Plan (1) Sepsis: Code(s): A41.9 - Sepsis, unspecified organism Status: Acute Assessment and Plan: - lactic acid: WNL on admission -continue IV fluid resuscitation - suspected source: perforated gastric ulcer - blood cultures drawn on 12/30: NGTD - Urine culture: No growth. Continue urinary catheter. - IV antibiotics: Continue Zosyn started on 12/30 (2) Perforated gastric ulcer: Code(s): K25.5 - Chronic or unspecified gastric ulcer with perforation Status: Acute Assessment and Plan: CT abdomen/pelvis 12/30: Free intraperitoneal gas, consistent with perforated viscus. Large volume of ascites. Abdominal and pelvic lymphadenopathy suspicious for metastatic disease. Moderate bilateral hydronephrosis.Gallbladder distention, which may be secondary to fasting or duct obstruction. - S/p exploratory laparotomy, extensive washout, repair of perforated gastric ulcer with Ari patch on 12/[address] Mckee - Continue IV Zosyn and IV Protonix. - Encouraged getting up to chair and increasing activity as tolerated. - Upper GI series 01/01: No extraluminal leakage of contrast - Abdomen/pevlis CT: ordered 01/04/2024 -s/p: Exploratory laparotomy patient has pulled out drain, surgery team aware - repeat abdomen/pelvis CT 01/05/2024: pt with is more lethargic this morning, will transfer to IMU (3) CATHI (acute kidney injury): Code(s): N17.9 - Acute kidney failure, unspecified Status: Acute Assessment and Plan: Likely secondary to sepsis serum creatinine 1.2-1.9 -2.1 - 2.7 - 3.1 Sodium WNL - Avoid nephrotoxic drugs. - Monitor antihypertensive drug therapy. - Avoid NSAIDs. - Routine CMP monitoring GFR. - Monitor electrolytes especially potassium. - Pharmacy does medications. 01/04/2024: Serum creatinine elevated 3.60 GFR 13 -renal ultrasound reveals: increased echogenicity of the renal parenchyma bilateral suggesting bilateral chronic renal disease -consult nephrology -continue plan above 01/05/2024: spoke with nephrology this am, agrees with plan to transfer to IMU, start Bi-carb drip, d/c Eliquis, consult general surgery for dialysis catheter placement, nephrology agrees if groin catheter is placed. (4) Seizure disorder: Code(s): G40.909 - Epilepsy, unspecified, not intractable, without status epilepticus Status: Chronic Assessment and Plan: Chronic. Continue home medications. - Phenytoin and Lamictal labs ordered - Phenytoin 100 mg TID - check Lamotrigine level 01/04/2024: Continue plan above 01/05/2024: Continue plan above (5) DVT (deep venous thrombosis): Code(s): I82.409 - Acute embolism and thrombosis of unspecified deep veins of unspecified lower extremity Status: Acute Assessment and Plan: Venous doppler 12/28/23 revealed a deep vein thrombosis involving the left posterior tibial and peroneal veins. Patient was started on eliquis 10 mg BID at that time. - Eliquis currently on hold following surgery, will continue to hold per surgery - D/c Lovenox, due to worsening kidney function - monitor -pt with tachycardia, SOB and fatigue concern for PE will order V/Q scan due to elevated serum creatinine 3.60 unable to due CTA -restart Eliquis, pharmacy consulted 01/05/2024: D/C Eliquis at this time, discussed with nephrology Plan -with patient to IMU -patient's condition is guarded -DC Eliquis p.o. -discontinue all p.o. medication -start sodium bicarbonate drip if 50ml/hr IV -consult General surgery for dialysis catheter placement -update with any new change of condition patient may be candidate ICU placement Time Spent With Patient Time with patient: Greater than 35 minutes Subjective Date/time seen: 01/05/24 11:02 Interval history: Pt is lying in bed this morning, in no acute distress, seems lethargic, family by the bedside reports pt has not c/o pain this time. After review of pt's mo
--- NOTE | 2024-01-05 11:25 | PC.NURSE ---
Addendum entered by Harleen Easley RN 01/05/24 11:26: pt transferred at 1010 Original Note: This patient, Kelsie Brown, was transferred to IMU on 01/05/24 at 1125. Personal belongings sent with patient. Report given to Shanti PORTER. Appropriate documentation sent with patient.
[2024-01-05 11:56] LABS: Glucose Point of Care 56 mg/dl (65-105)
[2024-01-05] MEDS: DEXTROSE 50% 25 GM/50 ML SYRINGE (11:57)
[2024-01-05] MEDS: SODIUM BICARBONATE 8.4% 50 MEQ/50 ML SYRINGE IV PUSH ×2 (12:00→12:35)
[2024-01-05] MEDS: LACTATED RINGERS 1,000 ML 999 ML IV CONT (12:00)
--- NOTE | 2024-01-05 12:02 | PM.PNNEP ---
Progress Note: A&P Assessment and Plan (1) CATHI (acute kidney injury): Code(s): N17.9 - Acute kidney failure, unspecified Status: Acute Assessment and Plan: suspect multifactorial etiology: infection/sepsis prerenal factors obstruction ( moderate bilateral hydronephrosis on recent imaging) NSAID use (IV ibuprofen) evaluation to date: repeat imaging with persistent moderate bilateral hydronephrosis along with changes consistent with CKD urine electrolytes are prerenal urine eosinophils negative CPK okay had planned initiation of TILE [facility] MAR[facility]TER/hemodialysis today but given change in hemodynamics (hypotension), will reassess for tomorrow follow trend of repeat labs and UOP (2) CKD (chronic kidney disease): Code(s): N18.9 - Chronic kidney disease, unspecified Status: Chronic Assessment and Plan: as evident by renal ultrasound findings: Increased echogenicity of the renal parenchyma suggesting bilateral chronic renal disease bilateral hydronephrosis -- acute or chronic or acute on chronic? previous creatinine on 12/27 was 1.23mg/dl if able, try to obtain any old records from PCP or other hospitalizations regarding previous creatinine (3) Sepsis: Code(s): A41.9 - Sepsis, unspecified organism Status: Acute Assessment and Plan: presumed source is #3 culture data noted IVF resuscitation as tolerated follow hemodynamics - tu need vasopressor support antibiotics adjusted continue supportive therapyu (4) Metabolic acidosis: Code(s): E87.20 - Acidosis, unspecified Status: Acute Assessment and Plan: due to CATHI/ARF transitioned to bicarbonate IVFs follow CO2 levels still may need dialytic support (5) Perforated gastric ulcer: Code(s): K25.5 - Chronic or unspecified gastric ulcer with perforation Status: Acute Assessment and Plan: as noted by admission imaging: CT abdomen/pelvis on 12/30 -- Free intraperitoneal gas, consistent with perforated viscus. Large volume of ascites. Abdominal and pelvic lymphadenopathy suspicious for metastatic disease. Gallbladder distention, which may be secondary to fasting or duct obstruction s/p exploratory laparotomy with extensive washout, repair of perforated gastric ulcer with Ari patch on 12/[address] Mckee continue IV antibiotics follow culture data General Surgery following (6) DVT (deep venous thrombosis): Code(s): I82.409 - Acute embolism and thrombosis of unspecified deep veins of unspecified lower extremity Status: Acute Assessment and Plan: venous doppler with deep vein thrombosis involving the left posterior tibial and peroneal veins V/Q scan results noted as well to start anticoagulation once more stable (7) Altered mental status: Code(s): R41.82 - Altered mental status, unspecified Status: Acute Assessment and Plan: presumably toxic metabolic encephalopathy negative head CT on 01/03 TSH okay follow mentation closely (8) Metastatic cancer: Code(s): C79.9 - Secondary malignant neoplasm of unspecified site Status: Acute Assessment and Plan: CT scan shows widespread lymphadenopathy in abdomen along with signs of peritoneal metastasis primary cancer unknown Case discussed with KIM Treadwell as well as Dr. Johnson. Will continue to follow. Subjective Date/time seen: 01/05/24 12:02 Interval history: Follow-up for acute kidney injury/acute renal failure (likely on chronic kidney disease). Events noted earlier this this morning -- worsening renal dysfunction with diminished urine output noted in the context of deteriorating mental status along with metabolic acidosis and rising potassium level; initial plan was to start TILE AND MARBLE SETTER/hemodialysis but then patient became hemodynamically unstable with systolic BPs in the 60 - 70s later in the morning necessitating transfer to ICU for closer monitoring
--- NOTE | 2024-01-05 12:02 | P.PNNP_ITS ---
Progress Note: A&P Assessment and Plan (1) CATHI (acute kidney injury): Code(s): N17.9 - Acute kidney failure, unspecified Status: Acute Assessment and Plan: * suspect multifactorial etiology: * infection/sepsis * prerenal factors * obstruction ( moderate bilateral hydronephrosis on recent imaging) * NSAID use (IV ibuprofen) * evaluation to date: * repeat imaging with persistent moderate bilateral hydronephrosis along with changes consistent with CKD * urine electrolytes are prerenal * urine eosinophils negative * CPK okay * had planned initiation of [facility] SEWER/hemodialysis today but given change in hemodynamics (hypotension), will reassess for tomorrow * follow trend of repeat labs and UOP (2) CKD (chronic kidney disease): Code(s): N18.9 - Chronic kidney disease, unspecified Status: Chronic Assessment and Plan: * as evident by renal ultrasound findings: * Increased echogenicity of the renal parenchyma suggesting bilateral chronic renal disease * bilateral hydronephrosis -- acute or chronic or acute on chronic? * previous creatinine on 12/27 was 1.23mg/dl * if able, try to obtain any old records from PCP or other hospitalizations regarding previous creatinine (3) Sepsis: Code(s): A41.9 - Sepsis, unspecified organism Status: Acute Assessment and Plan: * presumed source is #3 * culture data noted * IVF resuscitation as tolerated * follow hemodynamics - tu need vasopressor support * antibiotics adjusted * continue supportive therapyu (4) Metabolic acidosis: Code(s): E87.20 - Acidosis, unspecified Status: Acute Assessment and Plan: * due to CATHI/ARF * transitioned to bicarbonate IVFs * follow CO2 levels * still may need dialytic support (5) Perforated gastric ulcer: Code(s): K25.5 - Chronic or unspecified gastric ulcer with perforation Status: Acute Assessment and Plan: * as noted by admission imaging: * CT abdomen/pelvis on 12/30 -- Free intraperitoneal gas, consistent with perforated viscus. Large volume of ascites. Abdominal and pelvic lymphadenopathy suspicious for metastatic disease. Gallbladder distention, which may be secondary to fasting or duct obstruction * s/p exploratory laparotomy with extensive washout, repair of perforated gastric ulcer with Ari patch on 12/[address] Mckee * continue IV antibiotics * follow culture data * General Surgery following (6) DVT (deep venous thrombosis): Code(s): I82.409 - Acute embolism and thrombosis of unspecified deep veins of unspecified lower extremity Status: Acute Assessment and Plan: * venous doppler with deep vein thrombosis involving the left posterior tibial and peroneal veins * V/Q scan results noted as well * to start anticoagulation once more stable (7) Altered mental status: Code(s): R41.82 - Altered mental status, unspecified Status: Acute Assessment and Plan: * presumably toxic metabolic encephalopathy * negative head CT on 01/03 * TSH okay * follow mentation closely (8) Metastatic cancer: Code(s): C79.9 - Secondary malignant neoplasm of unspecified site Status: Acute Assessment and Plan: * CT scan shows widespread lymphadenopathy in abdomen along with signs of peritoneal metastasis * primary cancer unknown Case discussed with KIM Treadwell as well as Dr. Johnson. Will continue to follow. Subjective Date/time seen: 01/05/24
--- NOTE | 2024-01-05 12:08 | PC.NURSE ---
Pt with a BP of 70/40. Not responsive to voice. Rechecked a manual blood pressure. BP 60/40. Called [facility]. Transfer to ICU initiated. Dr. Johnson notified.
--- NOTE | 2024-01-05 12:10 | PC.NURSE ---
This patient, Kelsie Brown, was received from [[id number]] on 01/05/24 at 1210. Patient/family oriented to unit policies and routines
--- NOTE | 2024-01-05 12:10 | WPDCNINT ---
Assessment and Plan Assessment and plan (1) Sepsis: Code(s): A41.9 - Sepsis, unspecified organism Status: Acute Assessment and Plan: sepsis secondary to perforated gastric ulcer and peritonitis will give 1 L fluid bolus start IV fluids with bicarb may need vasopressors change Zosyn to meropenem cultures done on 12/30 are negative till now (2) Perforated gastric ulcer: Code(s): K25.5 - Chronic or unspecified gastric ulcer with perforation Status: Acute Assessment and Plan: status post exploratory laparotomy, extensive washout, repair of perforated gastric ulcer with Ari patch MARIAMA drain placed management per General surgery CT scan shows widespread lymphadenopathy with peritoneal masses suggestive of metastatic disease (3) Encephalopathy: Code(s): G93.40 - Encephalopathy, unspecified Status: Acute Assessment and Plan: likely toxic metabolic encephalopathy head CT done on 01/03 was negative ABG reviewed start IV fluids with dextrose hypoglycemia and monitor blood sugars TSH normal check ammonia level at this time patient is awake enough to protect her airway but may need intubation if status worsens (4) CATHI (acute kidney injury): Code(s): N17.9 - Acute kidney failure, unspecified Status: Acute Assessment and Plan: patient likely has underlying chronic kidney disease. Renal ultrasound showed IMPRESSION: Moderate bilateral hydronephrosis Increased echogenicity of the renal parenchyma suggesting bilateral chronic renal disease she presented with elevated creatinine which has been r gradually worse nephrology is following general surgery is going to place a temporary dialysis catheter as patient will likely need hemodialysis bicarb ordered for hyperkalemia and acidosis will recheck level later (5) Ileus: Code(s): K56.7 - Ileus, unspecified Status: Acute Assessment and Plan: patient appears to have developed ileus will place NG tube in place to low intermittent suction npo for now (6) DVT (deep venous thrombosis): Code(s): I82.409 - Acute embolism and thrombosis of unspecified deep veins of unspecified lower extremity Status: Acute Assessment and Plan: patient was on Eliquis which has been on hold will start anticoagulation once patient is stabilized perfusion scan done on 01/03 showed moderate matched ventilation perfusion defect in right lower thorax (7) Metabolic acidosis: Code(s): E87.20 - Acidosis, unspecified Status: Acute Assessment and Plan: secondary to acute renal failure and sepsis 2 amps of bicarb IV given now and fluids will be started with IV bicarb may need hemodialysis for persistent acidosis (8) Seizure disorder: Code(s): G40.909 - Epilepsy, unspecified, not intractable, without status epilepticus Status: Chronic Assessment and Plan: continue phenytoin (9) Hypoglycemia: Code(s): E16.2 - Hypoglycemia, unspecified Status: Acute Assessment and Plan: IVF with D5 ordered. blood glucose monitoring ordered (10) Metastasis: Code(s): C79.9 - Secondary malignant neoplasm of unspecified site Status: Acute Assessment and Plan: CT scan shows widespread lymphadenopathy in abdomen along with signs of peritoneal metastasis. primary unknown at this time Plan DVT prophylaxis - anticoagulation as above Stress ulcer prophylaxis - IV Protonix Nutrition - npo Code Status - Full Code I had a long meeting with patient's 3 sisters and 1 niece. I updated them with patient's status including perforated gastric ulcer status post surgery, sepsis, acute renal failure, acidosis, ileus. possibility of her needing dialysis, intubation mechanical ventilation, code status and goals of care. I answered all their questions. Patient has guarded prognosis and is critically ill with multiorgan failure
[2024-01-05 12:15] LABS: Alveolar/Arterial O2 Gradient 179.2 mmHg; Fractional Inspired Oxygen 32 %; HCO3 ABG 6.8 mEq/l (22.0-26.0); PO2 FiO2 Ratio Arterial Blood 0.96 %
[2024-01-05 12:18] LABS: pH ABG 7.258 (7.350-7.450)
[2024-01-05 12:19] LABS: PCO2 ABG 15.5 mmHg (35.0-45.0); PO2 ABG 30.8 mmHg (80.0-100.0); Site Drawn LEFT BRACHIAL; Total Hemoglobin < 4.3 g/dL (12.0-18.0)
[2024-01-05 12:20] LABS: Device NASAL CANNULA
[2024-01-05 12:37] LABS: Anion Gap 14 mmol/L (4-12); Blood Urea Nitrogen 65 mg/dL (7-17); Calcium 7.3 mg/dL (8.4-10.2); Carbon Dioxide 15 mmol/L (22-30); Chloride 104 mmol/L (98-107); Estimated CRCL calculation 10 ml/min; Estimated Glomerular Filt Rate 10; Glucose 214 mg/dL (65-110); Potassium 4.9 mmol/L (3.4-5.0); Sodium 133 mmol/L (137-145)
--- NOTE | 2024-01-05 12:41 | W.PM.PROC2 ---
Procedure Note - Detailed Date of Procedure 01/05/24 Pre-op Diagnosis sepsis, acute renal failure Post-op Diagnosis Same Procedure Performed placement of Trialysis 20 cm hemodialysis catheter Surgeon Valeria Mckee MD Anesthesia Local Indications 68-year-old female in septic shock and acute renal failure necessitating central venous access and emergent hemodialysis access Findings placement of 20 cm Trialysis catheter in right internal jugular vein Description of Procedure The patient was placed in the supine position. She was then prepped and draped in the normal sterile fashion. A time-out was then done to verify the patient's identity, as well as the procedure being performed. I began by localizing the area above and around the right internal jugular vein. The right internal jugular vein was identified via the ultrasound device. Under ultrasound guidance I was able to gain access into the right internal jugular vein via the 1st stick using an 18 gauge needle. Once confirmed in good position, I fed the guidewire into the right internal jugular vein. The needle was removed now just leaving the guidewire in the vein. I then enlarged the incision around the guidewire. I then serially dilated the vein with the provided dilators under sterile Seldinger technique. Once adequately dilated, the 20 cm Trialysis catheter was placed over the guidewire into the right internal jugular vein via sterile Seldinger technique. Once noted to be in good position, I removed the guidewire now just leaving the catheter in the vein. I was able to easily draw and flush from all port sites. The catheter was sutured into position and sterile dressing was placed. The patient tolerated the procedure well and will be left in the ICU in critical condition. A portable chest x-ray will be done to confirm placement. Implants 20 cm Trialysis catheter in the right internal jugular vein Estimated Blood Loss 5 Pathology None sent Complications No immediate complications Condition Critical Disposition ICU [facility] Billing Surgery - Charge Forward: Surgery Billing
--- NOTE | 2024-01-05 12:49 | PM.PNGS ---
Progress Note: A&P Assessment and Plan (1) Sepsis: Code(s): A41.9 - Sepsis, unspecified organism Status: Acute Assessment and Plan: worsening, will transfer to ICU, pressors as necessary, cont broad spectrum abx, abd exam still largely benign, CT reviewed (2) CATHI (acute kidney injury): Code(s): N17.9 - Acute kidney failure, unspecified Status: Acute Assessment and Plan: will place Trialysis cath emergently Subjective Subjective Date/Time Seen: 01/05/24 12:49 Interval history: worse this am, very confused, lethargic Review of Systems Review of Systems: ROS unobtainable: Yes unobtainable due to mental status Exam Const: General: confusion, ill appearing and lethargic Resp: Auscultation: diminished lung sounds Cardio: Rate: tachycardic Rhythm: regular rhythm GI: Inspection: normal to inspection, distended and incision GI Palp: No abdominal tenderness and Yes Soft to palpation Other: incision C/D/I drain c s/s output Objective Data Vital Signs Vital Signs: Vital Signs - 24 hr 01/04/24 15:33 01/04/24 19:03 01/04/24 18:50 Temperature 36.5 C 36.5 C Pulse Rate 122 H 114 H Respiratory Rate 16 16 Blood Pressure 121/74 82/54 L Pulse Oximetry 92 100 Oxygen Delivery Oxygen Flow Rate Fraction of Inspired Oxygen 01/04/24 19:54 01/04/24 16:00 01/04/24 13:23 Temperature Pulse Rate 106 H 118 H 117 H Respiratory Rate 18 Blood Pressure 107/54 L Pulse Oximetry Oxygen Delivery Oxygen Flow Rate Fraction of Inspired Oxygen 01/04/24 14:00 01/04/24 20:05 01/04/24 20:00 Temperature Pulse Rate 121 H Respiratory Rate Blood Pressure Pulse Oximetry 99 92 Oxygen Delivery Nasal Cannula Nasal Cannula Oxygen Flow Rate 2.5 2 Fraction of Inspired Oxygen 01/04/24 23:32 01/05/24 00:04 01/05/24 04:00 Temperature 36.7 C Pulse Rate 104 H 112 H 113 H Respiratory Rate 16 Blood Pressure 96/60 L Pulse Oximetry Oxygen Delivery Oxygen Flow Rate Fraction of Inspired Oxygen 01/05/24 04:00 01/05/24 07:16 01/05/24 08:16 Temperature 36.7 C Pulse Rate 98 Respiratory Rate 14 Blood Pressure 78/58 L 92/60 L Pulse Oximetry 100 Oxygen Delivery Nasal Cannula Oxygen Flow Rate 2 Fraction of Inspired Oxygen 28 01/05/24 09:45 01/05/24 11:28 01/05/24 11:34 Temperature 36.6 C Pulse Rate 110 H Respiratory Rate 18 Blood Pressure 70/44 L 70/42 L Pulse Oximetry 100 100 Oxygen Delivery Nasal Cannula Oxygen Flow Rate 2.5 Fraction of Inspired Oxygen 01/05/24 12:03 01/05/24 11:40 Temperature 37.0 C Pulse Rate 110 H Respiratory Rate 30 H Blood Pressure 125/91 H 60/40 L Pulse Oximetry Oxygen Delivery Oxygen Flow Rate Fraction of Inspired Oxygen Intake/Output Intake/Output: Intake & Output 01/02/24 01/03/24 01/04/24 01/05/24 23:59 23:59 23:59 23:59 Intake Total 2400.0 1975 3240 1050 Output Total 1456 1425 900 90 Balance 944.0 550 2340 960 Meds/Results Medications: Active Medications Generic Name Dose Route Start Last Admin Trade Name Freq PRN Reason Stop Dose Admin Dextrose 12.5 gm 01/05/24 11:59 Dextrose 50% 25 Gm/50 Ml Syringe IV PUSH PRN PRN Hypoglycemia Protocol Glucagon 1 mg 01/05/24 11:59 Glucagon For Inj 1 Mg Vial IM PRN PRN Hypoglycemia Protocol Glucose 15 gm 01/05/24 11:59 Glucose Oral Gel 15 Gm Of Glucse In 37.5 Gm Tube PO PRN PRN Hypoglycemia Protocol Hydromorphone HCl 1 mg 12/31/23 14:36 01/04/24 20:14 Hydromorphone Hcl Inj (*Crx) 1 Mg/Ml Syr IV PUSH 1 mg Q2H PRN Administration Breakthrough Pain Rated 7-10 or NPO Hydromorphone HCl 0.5 mg 12/31/23 14:36 01/03/24 00:06 Hydromorphone Hcl Inj (*Crx) 1 Mg/Ml Syr IV PUSH 0.5 mg Q2H PRN Administration Breakthrough Pain Rated 4-6 or NPO Lactated Ringer's 1,000 mls @ 100 mls/hr 12/31/23 14
[2024-01-05 12:50] LABS: Ammonia < 9 umol/L (9-30)
[2024-01-05 13:01] LABS: Glucose Point of Care 62 mg/dl (65-105)
[2024-01-05 13:12] LABS: Glucose Point of Care 98 mg/dl (65-105)
[2024-01-05 13:14] LABS: Fractional Inspired Oxygen 32 %; HCO3 VBG 18.6 mEq/l (24.0-30.0); PCO2 VBG 33.3 mmHg (42.0-48.0); PO2 VBG 31.2 mmHg (35.0-45.0); pH VBG 7.364 (7.300-7.400)
[2024-01-05 13:15] LABS: Device NASAL CANNULA
[2024-01-05] MEDS: SODIUM BICARBONATE 8.4% 150 MEQ in DEXTROSE 5% 1,000 ML 950 ML 100 MEQ IV CONT (13:15)
--- NOTE | 2024-01-05 13:15 | PCPTNOTE ---
Pt on hold due to ICU admittance.
[2024-01-05] MEDS: NOREPINEPHRINE 8 MG/D5W 250 ML 8 MG/250 ML BAG 9.38 MG IV CONT (13:23)
[2024-01-05] MEDS: MEROPENEM 1 GM/NS 100 ML 1 GM/100 ML BAG IVPB (13:34)
[2024-01-05 13:37] LABS: MRSA (PCR) NOT DETECTED (NOT DETECTE)
[2024-01-05 13:47] LABS: Glucose Point of Care 164 mg/dl (65-105)
--- NOTE | 2024-01-05 14:52 | P.RRN_ITS ---
Critical Care Event Note Summary Code activated: No Narrative: This case had a high probability of a clinically significant, sudden, or life threatening deterioration of this patient's condition which required my full and direct attention, intervention and personal management. -received call from IMU nurse pt b/p recorded at 78/58, pt is lethargic -discussed case with logging operations inspector, request for ICU transfer -request sodium bicarb infusion -continue IV fluid -check glucose Critical care time: less than 30 mins
[2024-01-05] MEDS: CENTRAL LINE FLUSH 10 ML IV PUSH ×2 (15:17→20:16)
[2024-01-05 16:57] LABS: Glucose Point of Care 212 mg/dl (65-105)
[2024-01-05] MEDS: INSULIN ASPART (*BKC) 100 UNITS/ML SUB-Q ×2 (17:22→20:13)
[2024-01-05 18:53] LABS: Anion Gap 11 mmol/L (4-12); Blood Urea Nitrogen 66 mg/dL (7-17); Calcium 7.5 mg/dL (8.4-10.2); Carbon Dioxide 23 mmol/L (22-30); Chloride 101 mmol/L (98-107); Estimated CRCL calculation 10 ml/min; Estimated Glomerular Filt Rate 9; Glucose 270 mg/dL (65-110); Potassium 4.3 mmol/L (3.4-5.0); Sodium 135 mmol/L (137-145)
[2024-01-05] MEDS: PANTOPRAZOLE SODIUM IV 40 MG VIAL IV PUSH (20:13)
[2024-01-05 20:33] LABS: Glucose Point of Care 206 mg/dl (65-105)
[2024-01-06] VITALS (114 sets, daily range): BP systolic 79–143; BP diastolic 26–93; PULSE 87–112; RESP 14–27; TEMP 36.1–37; O2SAT 92–100
[2024-01-06] MEDS: SODIUM BICARBONATE 8.4% 150 MEQ in DEXTROSE 5% 1,000 ML 950 ML 100 MEQ IV CONT (00:10)
[2024-01-06] MEDS: MEROPENEM 1 GM/NS 100 ML 1 GM/100 ML BAG IVPB ×2 (00:10→17:55)
[2024-01-06 00:20] LABS: Glucose Point of Care 179 mg/dl (65-105)
[2024-01-06 05:12] LABS: Glucose Point of Care 221 mg/dl (65-105)
[2024-01-06] MEDS: INSULIN ASPART (*BKC) 100 UNITS/ML SUB-Q (05:39)
[2024-01-06] MEDS: CENTRAL LINE FLUSH 10 ML IV PUSH ×3 (05:40→21:00)
[2024-01-06] MEDS: PHENYTOIN SODIUM INJ 100 MG/2 ML VIAL (*BKC) IV PUSH ×3 (05:40→20:59)
[2024-01-06 05:54] LABS: Basophils Absolute Auto 0.2 K/mm3 (0.0-0.1); Basophils Percent Auto 0.6 % (0.2-1.2); Eosinophils Absolute Auto 0.6 K/mm3 (0-0.3); Hematocrit 32.9 % (37.0-47.0); Hemoglobin 11.3 g/dL (12.0-15.0); Immature Granulocyte Absolute 0.63 K/mm3 (0.00-0.031); Immature Granulocyte Percent A 2.2 % (0-0.5); Lymphocytes Absolute Auto 0.55 K/mm3 (0.9-3.2); Lymphocytes Percent Auto 1.9 % (18.3-44.2); Mean Corpuscular HGB Conc 34.3 g/dl (32-36); Mean Corpuscular Volume 90.1 fl (80-100); Mean Platelet Volume 10.2 fl (7.4-10.4); Monocytes Absolute Auto 1.1 K/mm3 (0.1-0.6); Monocytes Percent Auto 3.7 % (2.6-8.5); Neutrophils Absolute Auto 26.2 K/mm3 (1.3-6.7); Neutrophils Percent Auto 89.6 % (45.5-73.1); Nucleated Red Blood Cells Perc 0.6 % (0.0-0.2); Platelet Count Result 321 k/mm3 (150-375); Red Blood Count 3.65 M/mm3 (4.2-5.4); Red Cell Distribution Width 14.4 % (11.5-14.5); White Blood Count 29.2 K/mm3 (4.5-10.0)
[2024-01-06 06:09] LABS: Alanine Aminotransferase 28 U/L (6-35); Albumin Level 2.4 g/dL (3.5-5.1); Alkaline Phosphatase 94 U/L (38-126); Anion Gap 12 mmol/L (4-12); Aspartate Amino Transferase 97 U/L (14-36); Bilirubin,Total 1.3 mg/dL (0.2-1.3); Blood Urea Nitrogen 71 mg/dL (7-17); Calcium 7.4 mg/dL (8.4-10.2); Carbon Dioxide 23 mmol/L (22-30); Chloride 99 mmol/L (98-107); Estimated CRCL calculation 9 ml/min; Estimated Glomerular Filt Rate 9; Glucose 222 mg/dL (65-110); Magnesium 2.4 mg/dL (1.6-2.3); Potassium 3.8 mmol/L (3.4-5.0); Sodium 134 mmol/L (137-145)
[2024-01-06 07:42] LABS: Glucose Point of Care 182 mg/dl (65-105)
[2024-01-06] MEDS: PANTOPRAZOLE SODIUM IV 40 MG VIAL IV PUSH ×2 (09:02→20:59)
[2024-01-06 09:44] LABS: INR 3.9; Prothrombin Time 38.4 Seconds (11.1-14.7)
[2024-01-06 09:45] LABS: Partial Thromboplastin Time 44.9 Seconds (22.3-36.8)
--- NOTE | 2024-01-06 10:39 | WPDINTPN ---
Progress Note: A&P Assessment and Plan (1) Sepsis: Code(s): A41.9 - Sepsis, unspecified organism Status: Acute Assessment and Plan: Septic shock likely related to secondary to perforated gastric ulcer and peritonitis -hemodialysis patient, has received adequate IV fluids -patient on bicarb infusion, will discontinue -started on norepinephrine, will maintain good morning sugar MAP > 65 mmHg may need vasopressors -Continue Meropenem (01/03) -12/30: blood cultures are negative to date -01/02: Abscess culture growing Yeast, started on micafungin (01/05) (2) Perforated gastric ulcer: Code(s): K25.5 - Chronic or unspecified gastric ulcer with perforation Status: Acute Assessment and Plan: status post exploratory laparotomy, extensive washout, repair of perforated gastric ulcer with Ari patch S/p MARIAMA drains management per General surgery CT scan shows widespread lymphadenopathy with peritoneal masses suggestive of metastatic disease, CONSULT HEME/ONC (3) Encephalopathy: Code(s): G93.40 - Encephalopathy, unspecified Status: Acute Assessment and Plan: likely toxic metabolic encephalopathy most likely secondary to infection, acute kidney injury/uremia, possibly hyperglycemia -head CT done on 01/03 was negative - ABG reviewed - TSH normal -ammonia levels within normal limits - at this time patient is awake enough to protect her airway but may need intubation if status worsens (4) CATHI (acute kidney injury): Code(s): N17.9 - Acute kidney failure, unspecified Status: Acute Assessment and Plan: - patient likely has underlying chronic kidney disease. -appreciate Nephrology evaluation recommendation, -status post dialysis catheter with General surgery -nephrology to schedule dialysis -hyperkalemia has resolved 01/03: Renal ultrasound showed IMPRESSION: Moderate bilateral hydronephrosis Increased echogenicity of the renal parenchyma suggesting bilateral chronic renal disease (5) Ileus: Code(s): K56.7 - Ileus, unspecified Status: Acute Assessment and Plan: -patient appears to have developed postop ileus -NG tube to low intermittent suction -NPO for now -obtain obstructive series (6) DVT (deep venous thrombosis): Code(s): I82.409 - Acute embolism and thrombosis of unspecified deep veins of unspecified lower extremity Status: Acute Assessment and Plan: -patient on Eliquis at home for your left posterior tibial and peroneal veins DVT -01/04/2024: V/Q scan showed moderate mask ventilation perfusion defect right lower thorax, patient could have had a PE -will discuss with surgery regarding anticoagulation (7) Metabolic acidosis: Code(s): E87.20 - Acidosis, unspecified Status: Acute Assessment and Plan: -secondary to acute renal failure and sepsis -01/04: 2 amps of bicarb IV given now and fluids -discontinue sodium bicarb infusion as a bicarb has improved and patient is a dialysis patient -patient to receive dialysis today (8) Seizure disorder: Code(s): G40.909 - Epilepsy, unspecified, not intractable, without status epilepticus Status: Chronic Assessment and Plan: continue phenytoin (9) Hypoglycemia: Code(s): E16.2 - Hypoglycemia, unspecified Status: Acute Assessment and Plan: Continue to monitor sugars, currently stable -off all fluids (10) Metastasis: Code(s): C79.9 - Secondary malignant neoplasm of unspecified site Status: Acute Assessment and Plan: CT scan shows widespread lymphadenopathy in abdomen along with signs of peritoneal metastasis. primary unknown at this time -Heme/Onc has been consulted Plan DVT prophylaxis -SCDs to right lower extremity Stress ulcer prophylaxis - IV Protonix Nutrition - npo Code Status - Full Code D/w with 2 sisters at bedside and updated them with patient's condition
--- NOTE | 2024-01-06 10:42 | PCFNICU ---
ICU Rounding Note: Pt current nutrition is NPO. Nutrition recommendation: If okayed by surgeon, trickle feed of Nepro @ 20 ml/h (goal rate for full tube feeds: Nepro @ 40 ml/h: 1584 kcal, 71 g protein, 629 ml free water. TPN probably preferable once Levophed is not being run with central line. TPN: @ goal rate 40 ml/h: 1182 kcal, 48 g protein, 1210 ml total volume. Last recorded weight is 74.8 kg. Bowel Motility: +2 BMs today 01/06/24 Labs Reviewed: Hgb 11.3, Hct 32.9, Alb 2.4, Na 134, BUN 71, Cre 4.7, Glu 222 Meds Noted: Levophed @ 5 mcg. LR, D5, Zosyn Skin: Abdominal incision Additional Notes: NOT intubated. No nutrition since 01/01/24. Was on clear liquids 01/02, 01/03 but not advanced, moved to ICU. NPO for perforated gastric ulcer. Pressors running through central line, so not able to do TPN which is preferable considering the perforation. Requiring dialysis at this time. Checking with surgeon re: possibility of trophic tube feeding. Agree with NPO orders for this time. Following daily in ICU rounds. RD will monitor, weight, labs, skin, diet orders every 3 days. .
[2024-01-06] MEDS: MICAFUNGIN SODIUM 100 MG in SODIUM CHLORIDE 0.9% IV 100 ML IVPB (11:16)
[2024-01-06 11:52] LABS: Glucose Point of Care 134 mg/dl (65-105)
[2024-01-06] MEDS: NOREPINEPHRINE 8 MG/D5W 250 ML 8 MG/250 ML BAG 18.75 MG IV CONT (12:17)
[2024-01-06] MEDS: ALBUMIN HUMAN 25% 25 GM/100 ML 100 ML IVPB (12:17)
--- NOTE | 2024-01-06 13:06 | PM.IMPN ---
Progress Note: A&P Assessment and Plan (1) Sepsis: Code(s): A41.9 - Sepsis, unspecified organism Status: Acute Assessment and Plan: - lactic acid: WNL on admission -continue IV fluid resuscitation - suspected source: perforated gastric ulcer - blood cultures drawn on 12/30: NGTD - Urine culture: No growth. Continue urinary catheter. - IV antibiotics: Continue Zosyn started on 12/30 (2) Perforated gastric ulcer: Code(s): K25.5 - Chronic or unspecified gastric ulcer with perforation Status: Acute Assessment and Plan: CT abdomen/pelvis 12/30: Free intraperitoneal gas, consistent with perforated viscus. Large volume of ascites. Abdominal and pelvic lymphadenopathy suspicious for metastatic disease. Moderate bilateral hydronephrosis.Gallbladder distention, which may be secondary to fasting or duct obstruction. - S/p exploratory laparotomy, extensive washout, repair of perforated gastric ulcer with Ari patch on 12/[address] Mckee - Continue IV Zosyn and IV Protonix. - Encouraged getting up to chair and increasing activity as tolerated. - Upper GI series 01/01: No extraluminal leakage of contrast - Abdomen/pevlis CT: ordered 01/04/2024 -s/p: Exploratory laparotomy patient has pulled out drain, surgery team aware - repeat abdomen/pelvis CT 01/05/2024: pt with is more lethargic this morning, will transfer to IMU (3) CATHI (acute kidney injury): Code(s): N17.9 - Acute kidney failure, unspecified Status: Acute Assessment and Plan: Likely secondary to sepsis serum creatinine 1.2-1.9 -2.1 - 2.7 - 3.1 Sodium WNL - Avoid nephrotoxic drugs. - Monitor antihypertensive drug therapy. - Avoid NSAIDs. - Routine CMP monitoring GFR. - Monitor electrolytes especially potassium. - Pharmacy does medications. 01/04/2024: Serum creatinine elevated 3.60 GFR 13 -renal ultrasound reveals: increased echogenicity of the renal parenchyma bilateral suggesting bilateral chronic renal disease -consult nephrology -continue plan above 01/05/2024: spoke with nephrology this am, agrees with plan to transfer to IMU, start Bi-carb drip, d/c Eliquis, consult general surgery for dialysis catheter placement, nephrology agrees if groin catheter is placed. (4) Seizure disorder: Code(s): G40.909 - Epilepsy, unspecified, not intractable, without status epilepticus Status: Chronic Assessment and Plan: Chronic. Continue home medications. - Phenytoin and Lamictal labs ordered - Phenytoin 100 mg TID - check Lamotrigine level 01/04/2024: Continue plan above 01/05/2024: Continue plan above (5) DVT (deep venous thrombosis): Code(s): I82.409 - Acute embolism and thrombosis of unspecified deep veins of unspecified lower extremity Status: Acute Assessment and Plan: Venous doppler 12/28/23 revealed a deep vein thrombosis involving the left posterior tibial and peroneal veins. Patient was started on eliquis 10 mg BID at that time. - Eliquis currently on hold following surgery, will continue to hold per surgery - D/c Lovenox, due to worsening kidney function - monitor -pt with tachycardia, SOB and fatigue concern for PE will order V/Q scan due to elevated serum creatinine 3.60 unable to due CTA -restart Eliquis, pharmacy consulted 01/05/2024: D/C Eliquis at this time, discussed with nephrology Plan This is a 68-year-old female who presented with nausea and vomiting and abdominal pain on 12/31/2023. CT scan showed free intraperitoneal gas consistent with perforated viscus. Patient was taken to the OR on 12/31/2023 with findings of perforated gastric ulcer which was repaired with Ari patch. Admitted with sepsis related to above and CATHI. History of seizure disorder on Dilantin and lamotrigine Patient continues on broad-spectrum antibiotics. Continue to decline developed an abscess for which drain was placed on 01/03/2024. Renal was consulted for worsening renal fun
--- NOTE | 2024-01-06 14:08 | PC.NURSE ---
Dialysis started on patient.
[2024-01-06] MEDS: ALBUMIN HUMAN 25% 12.5 GM/50ML 50 ML IVPB ×2 (14:24→16:07)
[2024-01-06] MEDS: HEPARIN SOD/D5W 100 UNITS/ML 25,000 UNITS/250 ML BAG 12 UNITS IV CONT (14:25)
[2024-01-06] MEDS: HEPARIN SODIUM 5,000 UNITS/ML VIAL 5000 UNITS IV PUSH (14:25)
--- NOTE | 2024-01-06 15:03 | P.PCNBED_ITS ---
Procedures Central Line Placement Right Femoral: Central Line Date: 01/06/24 Central Line Time: 12:30 Performed Emergently - Given emergent patient condition, temporal constraints may have precluded informed consent.: Yes Time Out Performed: Yes Patient Position: supine Provider Prep: mask, sterile gown, sterile gloves, Max. sterile barrier precautions, cap and hand hygiene with conventional soap/water or alcohol based hand rub Central line prep: 2% Chlorhexidine scrub Local anesthesia used: lidocaine 1% Amount of anesthesia used (ml): 4 Sterile US Technique with sterile gel/sterile probe covers: Yes Central line lumen inserted: triple Polish: 7 Length (cm): 21 Depth of Insertion (cm): 21 Post Procedure: sutured in place, good blood return, all ports aspirated, flushed, capped, transparent dressing, hemostatic product, antimicrobial product, securement product and aseptic technique maintained throughout pr ocedure Complications: none
[2024-01-06 15:48] LABS: Creatinine, Random Urine 96 mg/dL (20-275); Total Protein/Creatinine Ratio 2563 mg/g creat (24-184)
--- NOTE | 2024-01-06 16:05 | PCOTNOTE ---
Pt not medically appropriate for OT at this time after being transferred to the ICU. Will continue to follow.
[2024-01-06 16:11] LABS: Hemoglobin 11.1 g/dL (12.0-15.0); Mean Corpuscular HGB Conc 34.7 g/dl (32-36); Mean Corpuscular Hemoglobin 31.1 pg (26-34); Mean Corpuscular Volume 89.6 fl (80-100); Mean Platelet Volume 10.2 fl (7.4-10.4); Platelet Count Result 263 k/mm3 (150-375); Red Blood Count 3.57 M/mm3 (4.2-5.4); Red Cell Distribution Width 14.5 % (11.5-14.5); White Blood Count 35.5 K/mm3 (4.5-10.0)
[2024-01-06 16:20] LABS: Glucose Point of Care 93 mg/dl (65-105)
[2024-01-06 16:40] LABS: Band Neutrophils Percent 12 % (0-6); Lymphocytes Absolute Manual 0.35 K/mm3 (1.1-4.5); Monocytes Absolute Manual 0.35 K/mm3 (0.1-0.90); Monocytes Percent Manual 1 % (3-9); Neutrophils Absolute Manual 34.79 K/mm3 (1.7-7.2); Neutrophils Percent Manual 86 % (46-73); Platelet Estimate Adequate (Adequate); Schistocytes None Seen; Total Cells Counted 100
--- NOTE | 2024-01-06 17:01 | PM.PNNEP ---
Progress Note: A&P Assessment and Plan (1) CATHI (acute kidney injury): Code(s): N17.9 - Acute kidney failure, unspecified Status: Acute Assessment and Plan: suspect multifactorial etiology: infection/sepsis prerenal factors obstruction ( moderate bilateral hydronephrosis on recent imaging) NSAID use (IV ibuprofen) evaluation to date: repeat imaging with persistent moderate bilateral hydronephrosis along with changes consistent with CKD urine electrolytes are prerenal urine eosinophils negative CPK okay HD today follow trend of repeat labs and UOP (2) CKD (chronic kidney disease): Code(s): N18.9 - Chronic kidney disease, unspecified Status: Chronic Assessment and Plan: as evident by renal ultrasound findings: Increased echogenicity of the renal parenchyma suggesting bilateral chronic renal disease bilateral hydronephrosis -- acute or chronic or acute on chronic? previous creatinine on 12/27 was 1.23mg/dl if able, try to obtain any old records from PCP or other hospitalizations regarding previous creatinine (3) Sepsis: Code(s): A41.9 - Sepsis, unspecified organism Status: Acute Assessment and Plan: presumed source is #3 culture data noted IVF resuscitation as tolerated follow hemodynamics - tu need vasopressor support antibiotics adjusted continue supportive therapyu (4) Metabolic acidosis: Code(s): E87.20 - Acidosis, unspecified Status: Acute Assessment and Plan: due to CATHI/ARF transitioned to bicarbonate IVFs follow CO2 levels still may need dialytic support (5) Perforated gastric ulcer: Code(s): K25.5 - Chronic or unspecified gastric ulcer with perforation Status: Acute Assessment and Plan: as noted by admission imaging: CT abdomen/pelvis on 12/30 -- Free intraperitoneal gas, consistent with perforated viscus. Large volume of ascites. Abdominal and pelvic lymphadenopathy suspicious for metastatic disease. Gallbladder distention, which may be secondary to fasting or duct obstruction s/p exploratory laparotomy with extensive washout, repair of perforated gastric ulcer with Ari patch on 12/[address] Mckee continue IV antibiotics follow culture data General Surgery following (6) DVT (deep venous thrombosis): Code(s): I82.409 - Acute embolism and thrombosis of unspecified deep veins of unspecified lower extremity Status: Acute Assessment and Plan: venous doppler with deep vein thrombosis involving the left posterior tibial and peroneal veins V/Q scan results noted as well to start anticoagulation once more stable (7) Altered mental status: Code(s): R41.82 - Altered mental status, unspecified Status: Acute Assessment and Plan: presumably toxic metabolic encephalopathy negative head CT on 01/03 TSH okay follow mentation closely (8) Metastatic cancer: Code(s): C79.9 - Secondary malignant neoplasm of unspecified site Status: Acute Assessment and Plan: CT scan shows widespread lymphadenopathy in abdomen along with signs of peritoneal metastasis primary cancer unknown Will continue to follow. Subjective Date/time seen: 01/06/24 17:00 Interval history: Follow-up for acute kidney injury/acute renal failure (on top of suspected chronic kidney disease). Tolerating dialysis treatment at the time of my visit (seen on HD at 4:50PM); initiated on vasopressor therapy at this time to maintain MAP/systloic BP; no acute omplaints voiced; mentation seems a bit better currently. Exam Narrative: General: ill appearing female in NAD Heart: tachycardic, normal S1 and S2; no rub Lungs: coarse and decreased at bases Abdomen: soft, mild TTP, absent bowel sounds Extremities: no cyanosis or clubbing; trace edema Skin: warm and intact Objective Data Vital Signs Vital Signs: Vital Signs Tem
--- NOTE | 2024-01-06 17:01 | P.PNNP_ITS ---
Progress Note: A&P Assessment and Plan (1) CATHI (acute kidney injury): Code(s): N17.9 - Acute kidney failure, unspecified Status: Acute Assessment and Plan: * suspect multifactorial etiology: * infection/sepsis * prerenal factors * obstruction ( moderate bilateral hydronephrosis on recent imaging) * NSAID use (IV ibuprofen) * evaluation to date: * repeat imaging with persistent moderate bilateral hydronephrosis along with changes consistent with CKD * urine electrolytes are prerenal * urine eosinophils negative * CPK okay * HD today * follow trend of repeat labs and UOP (2) CKD (chronic kidney disease): Code(s): N18.9 - Chronic kidney disease, unspecified Status: Chronic Assessment and Plan: * as evident by renal ultrasound findings: * Increased echogenicity of the renal parenchyma suggesting bilateral chronic renal disease * bilateral hydronephrosis -- acute or chronic or acute on chronic? * previous creatinine on 12/27 was 1.23mg/dl * if able, try to obtain any old records from PCP or other hospitalizations regarding previous creatinine (3) Sepsis: Code(s): A41.9 - Sepsis, unspecified organism Status: Acute Assessment and Plan: * presumed source is #3 * culture data noted * IVF resuscitation as tolerated * follow hemodynamics - tu need vasopressor support * antibiotics adjusted * continue supportive therapyu (4) Metabolic acidosis: Code(s): E87.20 - Acidosis, unspecified Status: Acute Assessment and Plan: * due to CATHI/ARF * transitioned to bicarbonate IVFs * follow CO2 levels * still may need dialytic support (5) Perforated gastric ulcer: Code(s): K25.5 - Chronic or unspecified gastric ulcer with perforation Status: Acute Assessment and Plan: * as noted by admission imaging: * CT abdomen/pelvis on 12/30 -- Free intraperitoneal gas, consistent with perforated viscus. Large volume of ascites. Abdominal and pelvic lymphadenopathy suspicious for metastatic disease. Gallbladder distention, which may be secondary to fasting or duct obstruction * s/p exploratory laparotomy with extensive washout, repair of perforated gastric ulcer with Ari patch on 12/[address] Mckee * continue IV antibiotics * follow culture data * General Surgery following (6) DVT (deep venous thrombosis): Code(s): I82.409 - Acute embolism and thrombosis of unspecified deep veins of unspecified lower extremity Status: Acute Assessment and Plan: * venous doppler with deep vein thrombosis involving the left posterior tibial and peroneal veins * V/Q scan results noted as well * to start anticoagulation once more stable (7) Altered mental status: Code(s): R41.82 - Altered mental status, unspecified Status: Acute Assessment and Plan: * presumably toxic metabolic encephalopathy * negative head CT on 01/03 * TSH okay * follow mentation closely (8) Metastatic cancer: Code(s): C79.9 - Secondary malignant neoplasm of unspecified site Status: Acute Assessment and Plan: * CT scan shows widespread lymphadenopathy in abdomen along with signs of peritoneal metastasis * primary cancer unknown Will continue to follow. Subjective Date/time seen: 01/06/24 17:00 Interval history: Follow-up for acute kidney injury/acute renal failure (on top of suspected chronic kidney disease). Tolerating dialysis treatmen
--- NOTE | 2024-01-06 17:30 | PC.NURSE ---
Dialysis completed with 2 L removed
[2024-01-06 21:10] LABS: Glucose Point of Care 126 mg/dl (65-105)
[2024-01-06 21:59] LABS: Partial Thromboplastin Time > 200.0 Seconds (22.3-36.8)
--- NOTE | 2024-01-06 22:50 | PC.NURSE ---
PTT resulted > 200. Heparin drip held for one hour per protocol and resumed at decreased rate. PTT ordered for 6 hours from time of resuming heparin drip. Will continue to monitor.
[2024-01-07] VITALS (86 sets, daily range): BP systolic 64–149; BP diastolic 47–89; PULSE 101–131; RESP 15–30; TEMP 35.1–37.2; O2SAT 10–100
--- NOTE | 2024-01-07 | ECHO_ITS ---
Patient Info Name: Kelsie Brown Age: 68 years : 1955 Gender: Female Ht: 65 in Wt: 159 lbs BSA: 1.83 m2 HR: 107 bpm BP: 109 / 62 mmHg Technical Quality: Fair Exam Date: 01/07/2024 10:03 AM Exam Location: Echo Lab Patient Status: Inpatient Admit Date: 12/31/2023 Staff Ordering Physician: Cash White MD Dietitian Helper: Fan Beaulieu RDCS Attending Provider: Sary Vazquez PA-C Referring Physician: Cindy VICTOR; Exam Type: CA echo doppler color flow Study Info Indications R57.0 - Cardiogenic shock Complete two-dimensional, color flow and Doppler transthoracic echocardiogram is performed. Summary 1. Complete two-dimensional, color flow and Doppler transthoracic echocardiogram is performed. 2. Left ventricular chamber dimension is normal. 3. Left ventricular systolic function is normal, estimated at 60-65%. 4. There is mild concentric increased left ventricular wall thickness. 5. The left ventricular diastolic function is grade I diastolic dysfunction. 6. E/e' 9 is minimally elevated. 7. No pulmonary hypertension, estimated pulmonary arterial systolic pressure is 32 mmHg. Left Ventricle E/e' 9 is minimally elevated. Left ventricular chamber dimension is normal. Left ventricular systolic function is normal, estimated at 60-65%. There is mild concentric increased left ventricular wall thickness. The left ventricular diastolic function is grade I diastolic dysfunction. Right Ventricle Right ventricular systolic function is normal and with normal TAPSE 1.8 cm. Right ventricular chamber dimension is normal. Left Atria Left atrial chamber dimension is normal. Right Atria Right atrial chamber dimension is normal. Aortic Valve The aortic valve is trileaflet. There is no aortic valve stenosis. There is no aortic valve regurgitation. Pulmonic Valve There is no pulmonic regurgitation. Mitral Valve There is no mitral valve stenosis. There is no mitral valve regurgitation. Tricuspid Valve There is no tricuspid valve regurgitation. No pulmonary hypertension, estimated pulmonary arterial systolic pressure is 32 mmHg. Pericardium/Pleural There is no pericardial effusion. Inferior Vena Cava Normal inferior vena cava with >50% collapse upon inspiration consistent with normal right atrial pressure, 5 mmHg. Aorta The aortic root size at the sinus of Valsalva is normal. Left Ventricular Outflow Tract Name Value Normal LVOT 2D LVOT Diameter 1.9 cm LVOT Doppler LVOT Peak Gradient 7 mmHg LVOT Mean Gradient 3 mmHg LVOT VTI 17 cm LVOT VTI/AV VTI Ratio 0.9 LVOT Stroke Volume 49 ml LVOT CO 4.6 l/min LVOT CI 2.5 l/min/m2 Pulmonic Valve Name Value Normal RVOT Doppler RVOT Peak Gradient 4 mmHg
[2024-01-07 00:24] LABS: Glucose Point of Care 135 mg/dl (65-105)
[2024-01-07] MEDS: VASOPRESSIN INJ 100 UNITS in DEXTROSE 5% 95 ML IV CONT (02:30)
[2024-01-07 05:04] LABS: Basophils Absolute Auto 0.2 K/mm3 (0.0-0.1); Basophils Percent Auto 0.5 % (0.2-1.2); Eosinophils Percent Auto 0.1 % (0-4.4); Hematocrit 28.1 % (37.0-47.0); Hemoglobin 9.8 g/dL (12.0-15.0); Immature Granulocyte Absolute 0.87 K/mm3 (0.00-0.031); Immature Granulocyte Percent A 2.7 % (0-0.5); Lymphocytes Absolute Auto 0.54 K/mm3 (0.9-3.2); Lymphocytes Percent Auto 1.6 % (18.3-44.2); Mean Corpuscular HGB Conc 34.9 g/dl (32-36); Mean Corpuscular Hemoglobin 31.5 pg (26-34); Mean Corpuscular Volume 90.4 fl (80-100); Mean Platelet Volume 10.5 fl (7.4-10.4); Monocytes Absolute Auto 1.1 K/mm3 (0.1-0.6); Monocytes Percent Auto 3.5 % (2.6-8.5); Neutrophils Percent Auto 91.6 % (45.5-73.1); Nucleated Red Blood Cells Perc 0.3 % (0.0-0.2); Platelet Count Result 228 k/mm3 (150-375); Red Blood Count 3.11 M/mm3 (4.2-5.4); Red Cell Distribution Width 14.5 % (11.5-14.5); White Blood Count 32.7 K/mm3 (4.5-10.0)
[2024-01-07 05:16] LABS: Lactic Acid Reflex 2.1 mmol/L (0.7-2.0)
[2024-01-07 05:21] LABS: Alanine Aminotransferase 25 U/L (6-35); Alkaline Phosphatase 103 U/L (38-126); Anion Gap 12 mmol/L (4-12); Aspartate Amino Transferase 64 U/L (14-36); Bilirubin,Total 1.4 mg/dL (0.2-1.3); Blood Urea Nitrogen 43 mg/dL (7-17); Calcium 8.3 mg/dL (8.4-10.2); Carbon Dioxide 25 mmol/L (22-30); Chloride 100 mmol/L (98-107); Estimated CRCL calculation 13 ml/min; Estimated Glomerular Filt Rate 12; Glucose 139 mg/dL (65-110); Magnesium 2.2 mg/dL (1.6-2.3); Potassium 3.9 mmol/L (3.4-5.0); Sodium 137 mmol/L (137-145)
[2024-01-07 05:37] LABS: Partial Thromboplastin Time > 200.0 Seconds (22.3-36.8)
[2024-01-07 05:38] LABS: Glucose Point of Care 124 mg/dl (65-105)
[2024-01-07] MEDS: NOREPINEPHRINE 8 MG/D5W 250 ML 8 MG/250 ML BAG 13.13 MG IV CONT (05:39)
[2024-01-07] MEDS: CENTRAL LINE FLUSH 10 ML IV PUSH ×3 (05:40→21:36)
[2024-01-07] MEDS: PHENYTOIN SODIUM INJ 100 MG/2 ML VIAL (*BKC) IV PUSH ×3 (05:40→21:35)
[2024-01-07 05:42] LABS: Hypochromasia 1+; Platelet Estimate Adequate (Adequate)
[2024-01-07 05:43] LABS: Anisocytosis 1+; Burr Cells 1+; Platelet Clumps Present; Schistocytes None Seen
[2024-01-07 07:48] LABS: Glucose Point of Care 85 mg/dl (65-105)
[2024-01-07 08:00] LABS: Reflex Lactic Acid Yes or No Add Lactic
[2024-01-07] MEDS: MICAFUNGIN SODIUM 100 MG in SODIUM CHLORIDE 0.9% IV 100 ML IVPB (08:07)
[2024-01-07] MEDS: PANTOPRAZOLE SODIUM IV 40 MG VIAL IV PUSH ×2 (08:07→21:35)
--- NOTE | 2024-01-07 08:38 | WPDINTPN ---
Progress Note: A&P Assessment and Plan (1) Sepsis: Code(s): A41.9 - Sepsis, unspecified organism Status: Acute Assessment and Plan: Septic shock likely related to secondary to perforated gastric ulcer and peritonitis -hemodialysis patient, has received adequate IV fluids -patient on bicarb infusion, will discontinue -wean norepinephrine, to maintain MAP > 65 mmHg may need vasopressors -Continue Meropenem (01/03) -12/30: blood cultures are negative to date -01/02: Abscess culture growing Yeast, started on micafungin (01/05) (2) Perforated gastric ulcer: Code(s): K25.5 - Chronic or unspecified gastric ulcer with perforation Status: Acute Assessment and Plan: status post exploratory laparotomy, extensive washout, repair of perforated gastric ulcer with Ari patch S/p MARIAMA drains management per General surgery CT scan shows widespread lymphadenopathy with peritoneal masses suggestive of metastatic disease, CONSULT HEME/ONC (3) Encephalopathy: Code(s): G93.40 - Encephalopathy, unspecified Status: Acute Assessment and Plan: likely toxic metabolic encephalopathy most likely secondary to infection, acute kidney injury/uremia, possibly hyperglycemia -head CT done on 01/03 was negative - ABG reviewed - TSH normal -ammonia levels within normal limits - at this time patient is awake enough to protect her airway but may need intubation if status worsens (4) CATHI (acute kidney injury): Code(s): N17.9 - Acute kidney failure, unspecified Status: Acute Assessment and Plan: - patient likely has underlying chronic kidney disease. -appreciate Nephrology evaluation recommendation, -status post dialysis catheter with General surgery -nephrology to schedule dialysis -hyperkalemia has resolved 01/03: Renal ultrasound showed IMPRESSION: Moderate bilateral hydronephrosis Increased echogenicity of the renal parenchyma suggesting bilateral chronic renal disease (5) Ileus: Code(s): K56.7 - Ileus, unspecified Status: Acute Assessment and Plan: -patient appears to have developed postop ileus -NG tube to low intermittent suction -NPO for now -01/05: obstructive series -no evidence of obstruction or free air, nonspecific bowel gas pattern (6) DVT (deep venous thrombosis): Code(s): I82.409 - Acute embolism and thrombosis of unspecified deep veins of unspecified lower extremity Status: Acute Assessment and Plan: -patient on Eliquis at home for your left posterior tibial and peroneal veins DVT (12/28/23) -01/04/2024: V/Q scan showed moderate mask ventilation perfusion defect right lower thorax, patient could have had a PE -01/05: Discussed with surgery, okay to start therapeutic heparin infusion -currently on heparin infusion (7) Metabolic acidosis: Code(s): E87.20 - Acidosis, unspecified Status: Acute Assessment and Plan: -secondary to acute renal failure and sepsis -01/04: 2 amps of bicarb IV given now and fluids -discontinue sodium bicarb infusion as a bicarb has improved and patient is a dialysis patient -patient to receive dialysis today (8) Seizure disorder: Code(s): G40.909 - Epilepsy, unspecified, not intractable, without status epilepticus Status: Chronic Assessment and Plan: continue phenytoin (9) Hypoglycemia: Code(s): E16.2 - Hypoglycemia, unspecified Status: Acute Assessment and Plan: Continue to monitor sugars, currently stable -off all fluids (10) Metastasis: Code(s): C79.9 - Secondary malignant neoplasm of unspecified site Status: Acute Assessment and Plan: CT scan shows widespread lymphadenopathy in abdomen along with signs of peritoneal metastasis. primary unknown at this time -Heme/Onc has been consulted Plan DVT prophylaxis -SCDs to right lower extremity, heparin infusion Stress ulcer prophylaxis -
--- NOTE | 2024-01-07 09:03 | PM.IMPN ---
Progress Note: A&P Assessment and Plan (1) Sepsis: Code(s): A41.9 - Sepsis, unspecified organism Status: Acute (2) Perforated gastric ulcer: Code(s): K25.5 - Chronic or unspecified gastric ulcer with perforation Status: Acute (3) CATHI (acute kidney injury): Code(s): N17.9 - Acute kidney failure, unspecified Status: Acute (4) Seizure disorder: Code(s): G40.909 - Epilepsy, unspecified, not intractable, without status epilepticus Status: Chronic (5) DVT (deep venous thrombosis): Code(s): I82.409 - Acute embolism and thrombosis of unspecified deep veins of unspecified lower extremity Status: Acute Plan This is a 68-year-old female who presented with nausea and vomiting and abdominal pain on 12/31/2023. CT scan showed free intraperitoneal gas consistent with perforated viscus. Patient was taken to the OR on 12/31/2023 with findings of perforated gastric ulcer which was repaired with Ari patch. Admitted with sepsis related to above and CATHI. History of seizure disorder on Dilantin and lamotrigine Patient continues on broad-spectrum antibiotics. patient Continued to decline developed an abscess for which drain was placed on 01/03/2024. Renal was consulted for worsening renal function and acidosis and has been started on dialysis 01/06/2024. Patient was hypotensive likely related to sepsis and hence was transferred to ICU on 01/05/2024. Patient needing vasopressors antibiotic was switched to meropenem. Micafungin was added as culture from the abscess cavity growing [facility]. CT scan showed widespread lymphadenopathy with peritoneal masses suggestive of metastatic disease CATHI renal ultrasound showing moderate bilateral hydronephrosis general surgery has place temporary dialysis catheter to initiate hemodialysis. hemodialysis initiated 01/06/2024 History of DVT: Patient was on Eliquis for left posterior tibial and peroneal vein DVT which has been on hold. Perfusion scan 01/03 showed moderate matched ventilation perfusion defect in right lower thorax. switched to IV heparin Metabolic acidosis multifactorial DVT prophylaxis Code status full code Subjective Date/time seen: 01/07/24 09:03 Interval history: patient remains on Levophed. Got dialyzed yesterday. Labs reviewed. Discussed with critical care nurse specialist. little bit more awake today Review of Systems Review of Systems: All systems reviewed & are unremarkable except as noted in HPI and below Exam Narrative: General: Pt is awake but drowsy. Ill-appearing Lungs/Chest: Coarse breath sounds bilaterally, decreased on Rt > Lt. Cardiac: S1-S2 normal, regular rate and rhythm, no murmurs Circulation: both feet are cold, bilateral dorsalis pedis are weak to palpate Abdomen: absent bowel sounds. Soft. diffuse tenderness to palpation, NG tube in place Extremities: No clubbing, cyanosis, edema to left lower extremity : Lozada in place Neurologic: Patient opens her eyes to name, able to tell me where she is but does not tell me her date of or the year. follows simple commands in all extremities, good strength Skin: No Rash HEENT: no teeth or dentures, dry oral mucosa Objective Data Vital Signs Vital Signs: Vital Signs - 24 hr 01/06/24 09:15 01/06/24 09:30 01/06/24 09:46 Temperature Pulse Rate 96 101 H 99 Respiratory Rate Blood Pressure 80/66 L 81/59 L 90/64 L Pulse Oximetry Oxygen Delivery Oxygen Flow Rate Fraction of Inspired Oxygen 01/06/24 09:31 01/06/24 10:00 01/06/24 10:00 Temperature Pulse Rate 101 H 95 Respiratory Rate 19 Blood Pressure 88/56 L 88/56 L Pulse Oximetry 96 98 Oxygen Delivery Nasal Cannula Oxygen Flow Rate 2 Fraction of Inspired Oxygen 01/06/24 10:15 01/06/24 10:30 01/06/24 10:45 Temperature Pulse Rate 96 98 99 Respiratory Rate Blood Pressure 110/60 101/68 125/93 H Pulse Oximetry Oxygen Delivery Oxygen Flow Rate F
[2024-01-07 09:28] LABS: Lactic Acid 2.3 mmol/L (0.7-2.0)
--- NOTE | 2024-01-07 09:31 | P.PNNP_ITS ---
Progress Note: A&P Assessment and Plan (1) CATHI (acute kidney injury): Code(s): N17.9 - Acute kidney failure, unspecified Status: Acute Assessment and Plan: * suspect multifactorial etiology: * infection/sepsis * prerenal factors * obstruction ( moderate bilateral hydronephrosis on recent imaging) * NSAID use (IV ibuprofen) * evaluation to date: * repeat imaging with persistent moderate bilateral hydronephrosis along with changes consistent with CKD * urine electrolytes are prerenal * urine eosinophils negative * CPK okay * likely plan HD tomorrow * follow trend of repeat labs and UOP (2) CKD (chronic kidney disease): Code(s): N18.9 - Chronic kidney disease, unspecified Status: Chronic Assessment and Plan: * as evident by renal ultrasound findings: * Increased echogenicity of the renal parenchyma suggesting bilateral chronic renal disease * bilateral hydronephrosis -- acute or chronic or acute on chronic? * previous creatinine on 12/27 was 1.23mg/dl * if able, try to obtain any old records from PCP or other hospitalizations regarding previous creatinine (3) Sepsis: Code(s): A41.9 - Sepsis, unspecified organism Status: Acute Assessment and Plan: * presumed source is #3 * culture data noted * IVF resuscitation as tolerated * follow hemodynamics - tu need vasopressor support * antibiotics adjusted * continue supportive therapyu (4) Metabolic acidosis: Code(s): E87.20 - Acidosis, unspecified Status: Acute Assessment and Plan: * due to CATHI/ARF * transitioned to bicarbonate IVFs * follow CO2 levels * still may need dialytic support (5) Perforated gastric ulcer: Code(s): K25.5 - Chronic or unspecified gastric ulcer with perforation Status: Acute Assessment and Plan: * as noted by admission imaging: * CT abdomen/pelvis on 12/30 -- Free intraperitoneal gas, consistent with perforated viscus. Large volume of ascites. Abdominal and pelvic lymphadenopathy suspicious for metastatic disease. Gallbladder distention, which may be secondary to fasting or duct obstruction * s/p exploratory laparotomy with extensive washout, repair of perforated gastric ulcer with Ari patch on 12/[address] Mckee * continue IV antibiotics * follow culture data * General Surgery following (6) DVT (deep venous thrombosis): Code(s): I82.409 - Acute embolism and thrombosis of unspecified deep veins of unspecified lower extremity Status: Acute Assessment and Plan: * venous doppler with deep vein thrombosis involving the left posterior tibial and peroneal veins * V/Q scan results noted as well * to start anticoagulation once more stable (7) Altered mental status: Code(s): R41.82 - Altered mental status, unspecified Status: Acute Assessment and Plan: * presumably toxic metabolic encephalopathy * negative head CT on 01/03 * TSH okay * follow mentation closely (8) Metastatic cancer: Code(s): C79.9 - Secondary malignant neoplasm of unspecified site Status: Acute Assessment and Plan: * CT scan shows widespread lymphadenopathy in abdomen along with signs of perit nieto metastasis * primary cancer unknown Will continue to follow. Subjective Date/time seen: 01/07/24 09:31 Interval history: Follow-up for acute kidney injury/acute renal failure (on presumed chronic kidney disease). Tolerated hemodialysi
--- NOTE | 2024-01-07 09:31 | PM.PNNEP ---
Progress Note: A&P Assessment and Plan (1) CATHI (acute kidney injury): Code(s): N17.9 - Acute kidney failure, unspecified Status: Acute Assessment and Plan: suspect multifactorial etiology: infection/sepsis prerenal factors obstruction ( moderate bilateral hydronephrosis on recent imaging) NSAID use (IV ibuprofen) evaluation to date: repeat imaging with persistent moderate bilateral hydronephrosis along with changes consistent with CKD urine electrolytes are prerenal urine eosinophils negative CPK okay likely plan HD tomorrow follow trend of repeat labs and UOP (2) CKD (chronic kidney disease): Code(s): N18.9 - Chronic kidney disease, unspecified Status: Chronic Assessment and Plan: as evident by renal ultrasound findings: Increased echogenicity of the renal parenchyma suggesting bilateral chronic renal disease bilateral hydronephrosis -- acute or chronic or acute on chronic? previous creatinine on 12/27 was 1.23mg/dl if able, try to obtain any old records from PCP or other hospitalizations regarding previous creatinine (3) Sepsis: Code(s): A41.9 - Sepsis, unspecified organism Status: Acute Assessment and Plan: presumed source is #3 culture data noted IVF resuscitation as tolerated follow hemodynamics - tu need vasopressor support antibiotics adjusted continue supportive therapyu (4) Metabolic acidosis: Code(s): E87.20 - Acidosis, unspecified Status: Acute Assessment and Plan: due to CATHI/ARF transitioned to bicarbonate IVFs follow CO2 levels still may need dialytic support (5) Perforated gastric ulcer: Code(s): K25.5 - Chronic or unspecified gastric ulcer with perforation Status: Acute Assessment and Plan: as noted by admission imaging: CT abdomen/pelvis on 12/30 -- Free intraperitoneal gas, consistent with perforated viscus. Large volume of ascites. Abdominal and pelvic lymphadenopathy suspicious for metastatic disease. Gallbladder distention, which may be secondary to fasting or duct obstruction s/p exploratory laparotomy with extensive washout, repair of perforated gastric ulcer with Ari patch on 12/[address] Mckee continue IV antibiotics follow culture data General Surgery following (6) DVT (deep venous thrombosis): Code(s): I82.409 - Acute embolism and thrombosis of unspecified deep veins of unspecified lower extremity Status: Acute Assessment and Plan: venous doppler with deep vein thrombosis involving the left posterior tibial and peroneal veins V/Q scan results noted as well to start anticoagulation once more stable (7) Altered mental status: Code(s): R41.82 - Altered mental status, unspecified Status: Acute Assessment and Plan: presumably toxic metabolic encephalopathy negative head CT on 01/03 TSH okay follow mentation closely (8) Metastatic cancer: Code(s): C79.9 - Secondary malignant neoplasm of unspecified site Status: Acute Assessment and Plan: CT scan shows widespread lymphadenopathy in abdomen along with signs of peritoneal metastasis primary cancer unknown Will continue to follow. Subjective Date/time seen: 01/07/24 09:31 Interval history: Follow-up for acute kidney injury/acute renal failure (on presumed chronic kidney disease). Tolerated hemodialysis treatment yesterday without any acute issues or problems; remains on vasopressor support at this time; no other acute issues/events overnight or earlier this morning. Exam Narrative: General: ill appearing female in NAD Heart: tachycardic, normal S1 and S2; no rub Lungs: coarse and decreased at bases Abdomen: soft, mild TTP, absent bowel sounds Extremities: no cyanosis or clubbing; trace edema Skin:no rash Objective Data Vital Signs Vital Signs: Vital Signs Temp Pulse Resp BP Pulse Ox O2 Del
--- NOTE | 2024-01-07 10:39 | PDONCCN ---
HPI - Date of Consult Date/Time: 01/07/24 18:03 <LaceyGtgabriel Messina - 01/07/24 18:06> 01/07/24 10:39 <Jeanne Lopez - 01/07/24 10:41> Requesting Physician: Sary Vazquez PA-C <Gt Rahman - 01/07/24 18:06> Sary Vazquez PA-C <Jeanne Lopez - 01/07/24 10:41> Primary Care Provider: Mana Manrique, <Gt Rahman - 01/07/24 18:06> Mana Manrique, <JohnJeanne - 01/07/24 10:41> - Consult Narrative Reason for consult: Peritoneal masses and lymphadenopathy <JohnJeanne - 01/07/24 10:41> Narrative: Kelsie Brown is a 68 year old female <Gt Rahman - 01/07/24 18:06> Kelsie Brown is a 68 year old female with a past medical history of DVT and seizures who was admitted for abdominal pain w/ nausea. She was found to have a perforated gastric ulcer which was repaired by surgery. She has been declining and was transferred to the ICU recently for AMS, and renal failure requiring hemodialysis. She currently is very drowsy, but arousable to voice and stimulation but not well oriented so most information has been taken from chart review. Recent CT scan shows small pleural effusions, gallbladder distention, which may be secondary to fasting or acute cholecystitis, moderate bilateral hydronephrosis, abdominal and pelvic lymphadenopathy and peritoneal masses suspicious for metastatic disease, small volume of perihepatic and perisplenic ascites and adrenal masses, which may be adenomas or metastatic disease. Labs today are notable for WBC 32.7, Hgb 9.8, Hct 28, Plt 228,000, Cr 3.70 <Jeanne Lopez - 01/07/24 12:12> Review of Systems - Review of Systems unobtainable due to medical condition, unobtainable due to mental status <Jeanne Lopez 01/07/24 11:07> - Neurologic Reports system reviewed and no additional complaints, except as documented, Reports confusion <Ajay Lopezne - 01/07/24 10:41> [facility] Medical History: Medical History (Last Updated 01/03/24 @ 15:28 by Sary Vazquez PA-C) DVT (deep venous thrombosis) Osteoporosis Seizure disorder <Gt RahmanDeshaun - 01/07/24 18:06> Medical History (Last Updated 01/03/24 @ 15:28 by Sary Vazquez PA-C) DVT (deep venous thrombosis) Osteoporosis Seizure disorder <Ajay Lopezne - 01/07/24 10:41> Surgical History: Surgical History (Last Reviewed 12/31/23 @ 12:45 by Albert Thompson MD) History of abdominal surgery Abdominal surgery as a child with RUQ abdominal scar but patient does not know what kind of surgery she had or when. <LaceyGtDeshaun - 01/07/24 18:06> Surgical History (Last Reviewed 12/31/23 @ 12:45 by Albert Thompson MD) History of abdominal surgery Abdominal surgery as a child with RUQ abdominal scar but patient does not know what kind of surgery she had or when. <TirsohernandezRicoJeanne - 01/07/24 10:41> Family History: Family History (Last Reviewed 12/31/23 @ 12:45 by Albert Thompson MD) Mother Glaucoma <tG RahmanDeshaun - 01/07/24 18:06> Family History (Last Reviewed 12/31/23 @ 12:45 by Albert Thompson MD) Mother Glaucoma <TirsoJeanne ng - 01/07/24 10:41> - Social History Social History: Social History (Last Reviewed 12/31/23 @ 12:45 by Albert Thompson MD) Alcohol Use: Alcohol intake: never Substance Use: Substance use: never Others: Spiritual care concerns: No Smoking Status: Smoking status: Former smoker Smoking Pack-years: Smoking packs per day: 1 Smoking cigarettes per day: 20.0 Years smoked: 20 Smoking pack-years: 20.00 Social Determinants of Health: Do You Feel Safe in your Home?: Yes Has the Lack of Transportation Kept You From Medical Appointments or From Getting Medications?: No Within the Past 12 Months, Were You Worried Whether Your Food Would Run Out Befo
--- NOTE | 2024-01-07 10:55 | PCNFU ---
Nutrition Follow-Up Complete: Altered GI function as related to perforated gastric ulcer as evidenced by NGT to suction/NPO. Goal: Meet estimated nutritional needs. Patient will continue current goal. Pt current nutrition is Nepro at 10 ml/hr. Last recorded weight is 72.3 kg, up from 68.7 kg on admit. Bowel Motility: +BM reported 01/06 Labs Reviewed:Glu 139, GFR 12, BUN 43, Hct 28.1,Hgb 9.8 Meds Noted:Heparin,Zosyn, Levophed Skin: WNL Additional Notes: Patient to start on trickle feedings of Nepro at 10 ml/hr today. Flush 30 ml q 4 hours. Echo and Dialysis planned today. Agree with diet orders. Will monitor in ICU rounds. RD will reassess weight, labs, skin, diet orders every Saturday and Saturday.
[2024-01-07 11:24] LABS: Iron 18 ug/dL (37-170)
[2024-01-07 11:38] LABS: Percent Iron Saturation 7 % (20-50)
[2024-01-07 11:40] LABS: Glucose Point of Care 111 mg/dl (65-105)
[2024-01-07 11:42] LABS: Erythrocyte Sedimentation Rate > 140 mm/hr (0-20)
[2024-01-07 12:17] LABS: CRP 44.1 mg/dL (<1.0)
[2024-01-07 12:32] LABS: Folic Acid 5.5 ng/mL (2.76->20); Vitamin B12 > 1000.0 pg/mL (239-931)
[2024-01-07] MEDS: SODIUM CHLORIDE 0.9% IV 1,000 ML 999 ML IV CONT (13:00)
--- NOTE | 2024-01-07 13:02 | PM.PNGS ---
Progress Note: A&P Assessment and Plan (1) Perforated gastric ulcer: Code(s): K25.5 - Chronic or unspecified gastric ulcer with perforation Status: Acute Assessment and Plan: cont to be critically ill, ?source of sepsis, abd exam largely benign, will start clears and trophic feeds thru NG Subjective Subjective Date/Time Seen: 01/07/24 13:02 Interval history: no acute issues, had HD yesterday, pressor requirements down since yesterday Review of Systems Review of Systems: ROS unobtainable: Yes unobtainable due to medical condition Exam Const: General: cooperative and ill appearing Resp: Auscultation: diminished lung sounds Cardio: Rate: regular rate Rhythm: regular rhythm GI: Inspection: normal to inspection, non-distended and incision GI Palp: No abdominal tenderness and Yes Soft to palpation Other: incision C/D/I, mild serous drainage from previous drain site Objective Data Vital Signs Vital Signs: Vital Signs - 24 hr 01/06/24 13:16 01/06/24 13:33 01/06/24 13:46 Temperature Pulse Rate 101 H 102 H 101 H Respiratory Rate Blood Pressure 106/66 101/68 100/63 Pulse Oximetry Oxygen Delivery Oxygen Flow Rate Fraction of Inspired Oxygen 01/06/24 14:00 01/06/24 14:18 01/06/24 14:48 Temperature Pulse Rate 99 97 97 Respiratory Rate Blood Pressure 100/62 91/63 L 92/65 L Pulse Oximetry Oxygen Delivery Oxygen Flow Rate Fraction of Inspired Oxygen 01/06/24 14:00 01/06/24 15:07 01/06/24 13:30 Temperature Pulse Rate 98 98 Respiratory Rate 15 Blood Pressure 100/62 109/74 Pulse Oximetry 100 Oxygen Delivery Oxygen Flow Rate 2 Fraction of Inspired Oxygen 100 01/06/24 13:30 01/06/24 14:08 01/06/24 14:00 Temperature 36.4 C Pulse Rate 97 97 98 Respiratory Rate 16 Blood Pressure 101/68 101/63 Pulse Oximetry 100 Oxygen Delivery Oxygen Flow Rate Fraction of Inspired Oxygen 01/06/24 15:17 01/06/24 14:15 01/06/24 14:30 Temperature Pulse Rate 98 98 97 Respiratory Rate Blood Pressure 114/79 91/63 L 94/71 L Pulse Oximetry Oxygen Delivery Oxygen Flow Rate Fraction of Inspired Oxygen 01/06/24 14:45 01/06/24 15:00 01/06/24 15:15 Temperature Pulse Rate 99 98 96 Respiratory Rate Blood Pressure 92/65 L 109/74 114/79 Pulse Oximetry Oxygen Delivery Oxygen Flow Rate Fraction of Inspired Oxygen 01/06/24 15:30 01/06/24 15:45 01/06/24 16:00 Temperature Pulse Rate 100 101 H 112 H Respiratory Rate Blood Pressure 117/77 108/69 91/60 L Pulse Oximetry Oxygen Delivery Oxygen Flow Rate Fraction of Inspired Oxygen 01/06/24 16:30 01/06/24 16:45 01/06/24 15:30 Temperature Pulse Rate 102 H 97 99 Respiratory Rate Blood Pressure 93/62 L 116/72 117/77 Pulse Oximetry Oxygen Delivery Oxygen Flow Rate Fraction of Inspired Oxygen 01/06/24 16:00 01/06/24 16:15 01/06/24 16:34 Temperature Pulse Rate 109 H 112 H 104 H Respiratory Rate Blood Pressure 91/60 L 86/63 L 93/62 L Pulse Oximetry Oxygen Delivery Oxygen Flow Rate Fraction of Inspired Oxygen 01/06/24 16:15 01/06/24 16:00 01/06/24 16:46 Temperature 36.5 C Pulse Rate 107 H 108 H 102 H Respiratory Rate 15 Blood Pressure 86/63 L 91/60 L 116/72 Pulse Oximetry 100 Oxygen Delivery Oxygen Flow Rate Fraction of Inspired Oxygen 01/06/24 16:00 01/06/24 16:00 01/06/24 17:07 Temperature Pulse Rate 112 H 107 H Respiratory Rate Blood Pressure 109/79 Pulse Oximetry 97 Oxygen Delivery Nasal Cannula Oxygen Flow Rate 2 Fraction of Inspired Oxygen 01/06/24 17:00 01/06/24 17:15 01/06/24 17:36 Temperature Pulse Rate 101 H 87 96 Respiratory Rate Blood Pressure 109/79 143/65 H 129/71 Pulse Oximetry Oxygen Delivery Oxygen Flow Rate Fraction of Inspired Oxygen 01/06/24 17:48 01/06/24 18:00
[2024-01-07 13:14] LABS: Partial Thromboplastin Time 120.6 Seconds (22.3-36.8)
--- NOTE | 2024-01-07 13:19 | PC.NURSE ---
0700: Heparin infusing at 8ml/hr during morning rounds. Not charted on MAR by night RN. MAR updated by this RN
[2024-01-07] MEDS: ALBUMIN HUMAN 25% 12.5 GM/50ML 100 ML 999 GM (13:30)
[2024-01-07] MEDS: MIDAZOLAM 100MG/NS 100ML(*CRX) 100 MG/100 ML BAG IV CONT (14:08)
[2024-01-07 14:24] LABS: Protein, Total 4.4 g/dL (6.1-8.1)
--- NOTE | 2024-01-07 14:33 | PC.NURSE ---
Addendum entered by Ani Jin RN 01/07/24 15:49: Dosage of Levophed is mcg/min not ml/hr. Original Note: Levophed infusion increased to 20ml/hr during code blue. Levophed currently infusing at 10ml/hr. See physician orders on titrating
--- NOTE | 2024-01-07 14:43 | WPDPROCEDUR ---
Procedures Intubation Intubation Date: 01/07/24 Intubation Time: 13:48 Consent: Patient was hypotensive, eyes rolled back, agonal breathing, still had a pulse. Decided to intubate her for impending respiratory failure Sedative: none Laryngoscope: fiber optic video scope Assist device used: fiber optic device ET tube size: 7.5 Tube secured depth (cm): 23 Tube secured location: lips Tube placement confirmation: visualized tube passing through cords, equal breath sounds bilaterally, no breath sounds over epigastrium and confirmation by capnometry Patient tolerated procedure: well Intubation complications: none
[2024-01-07 15:26] LABS: Alveolar/Arterial O2 Gradient 329.3 mmHg; Base Excess ABG -0.1 mEq/l (+/-2.0); Carboxyhemoglobin 0.3 % THb (0-2.0); Fractional Inspired Oxygen 100 %; HCO3 ABG 24.7 mEq/l (22.0-26.0); Methemoglobin ABG 0.3 %THb (0-1.5); Oxygen Content ABG 15.7 %vol (16.0-22.0); Oxygen Saturation ABG 99.8 % (95.0-100.0); Oxyhemoglobin 99.4 % THb (90.0-100.0); PO2 ABG 342.7 mmHg (80.0-100.0); PO2 FiO2 Ratio Arterial Blood 3.43 %; Total Hemoglobin 10.6 g/dL (12.0-18.0); pH ABG 7.398 (7.350-7.450)
[2024-01-07 15:29] LABS: Device VENTILATOR; Site Drawn RIGHT RADIAL
[2024-01-07 15:30] LABS: Arterial Blood Gas PEEP 5 cmH2O; Arterial Blood Gas Tidal Volume 400 ml; Arterial Blood Gas Vent Mode CMV; Arterial Blood Gas Ventilator rate 20 /MIN
[2024-01-07 16:35] LABS: Glucose Point of Care 136 mg/dl (65-105)
[2024-01-07] MEDS: MEROPENEM 1 GM/NS 100 ML 1 GM/100 ML BAG IVPB (17:14)
[2024-01-07] MEDS: HEPARIN SOD/D5W 100 UNITS/ML 25,000 UNITS/250 ML BAG 7 UNITS IV CONT (18:57)
[2024-01-07 19:31] LABS: Partial Thromboplastin Time 114.7 Seconds (22.3-36.8)
[2024-01-07 20:17] LABS: Glucose Point of Care 124 mg/dl (65-105)
[2024-01-07] MEDS: MINERAL OIL/WHITE PETROLATUM OINTMENT 1 APPLIC EACH EYE (20:51)
[2024-01-07] MEDS: NOREPINEPHRINE 8 MG/D5W 250 ML 8 MG/250 ML BAG 22.5 MG IV CONT (22:25)
[2024-01-08] VITALS (29 sets, daily range): BP systolic 51–116; BP diastolic 38–82; PULSE 111–130; RESP 18–123; TEMP 36.8–37.4; O2SAT 95–99
[2024-01-08 01:58] LABS: Glucose Point of Care 138 mg/dl (65-105)
[2024-01-08] MEDS: FENTANYL 2,500MCG/NS250ML(*CRX 2,500 MCG/250 ML BAG IV CONT (02:25)
[2024-01-08 03:06] LABS: Partial Thromboplastin Time 161.9 Seconds (22.3-36.8)
[2024-01-08 04:04] LABS: Basophils Percent Auto 0.1 % (0.2-1.2); Hematocrit 30.3 % (37.0-47.0); Hemoglobin 10.3 g/dL (12.0-15.0); Immature Granulocyte Absolute 1.64 K/mm3 (0.00-0.031); Immature Granulocyte Percent A 4.1 % (0-0.5); Lymphocytes Percent Auto 1.7 % (18.3-44.2); Mean Corpuscular Volume 91.3 fl (80-100); Mean Platelet Volume 11.7 fl (7.4-10.4); Monocytes Absolute Auto 1.6 K/mm3 (0.1-0.6); Monocytes Percent Auto 3.9 % (2.6-8.5); Neutrophils Absolute Auto 36.2 K/mm3 (1.3-6.7); Neutrophils Percent Auto 90.2 % (45.5-73.1); Nucleated Red Blood Cells Perc 1.1 % (0.0-0.2); Platelet Count Result 220 k/mm3 (150-375); Red Blood Count 3.32 M/mm3 (4.2-5.4); Red Cell Distribution Width 14.9 % (11.5-14.5); White Blood Count 40.1 K/mm3 (4.5-10.0)
[2024-01-08 04:12] LABS: Alanine Aminotransferase 26 U/L (6-35); Albumin Level 2.9 g/dL (3.5-5.1); Alkaline Phosphatase 132 U/L (38-126); Anion Gap 15 mmol/L (4-12); Aspartate Amino Transferase 49 U/L (14-36); Bilirubin,Total 2.3 mg/dL (0.2-1.3); Blood Urea Nitrogen 50 mg/dL (7-17); Calcium 8.6 mg/dL (8.4-10.2); Carbon Dioxide 21 mmol/L (22-30); Chloride 99 mmol/L (98-107); Estimated CRCL calculation 11 ml/min; Estimated Glomerular Filt Rate 11; Glucose 194 mg/dL (65-110); Magnesium 2.4 mg/dL (1.6-2.3); Phosphorus 6.8 mg/dL (2.5-4.5); Potassium 4.7 mmol/L (3.4-5.0); Sodium 135 mmol/L (137-145)
[2024-01-08 04:17] LABS: Partial Thromboplastin Time 129.2 Seconds (22.3-36.8)
[2024-01-08 04:19] LABS: Lactic Acid Reflex 5.7 mmol/L (0.7-2.0)
[2024-01-08 04:38] LABS: Base Excess ABG -5.3 mEq/l (+/-2.0); Carboxyhemoglobin 0.5 % THb (0-2.0); Fractional Inspired Oxygen 40 %; HCO3 ABG 18.4 mEq/l (22.0-26.0); Methemoglobin ABG 0.3 %THb (0-1.5); Oxygen Content ABG 15.8 %vol (16.0-22.0); Oxygen Saturation ABG 97.9 % (95.0-100.0); Oxyhemoglobin 97.4 % THb (90.0-100.0); PCO2 ABG 30.1 mmHg (35.0-45.0); PO2 ABG 105.6 mmHg (80.0-100.0); PO2 FiO2 Ratio Arterial Blood 2.64 %; Reduced Hemoglobin 1.8 %THb (0-5.0); Total Hemoglobin 11.4 g/dL (12.0-18.0); pH ABG 7.404 (7.350-7.450)
[2024-01-08 04:39] LABS: Device VENTILATOR; Modified Allen's Test Pass; Site Drawn LEFT RADIAL
[2024-01-08 04:40] LABS: Arterial Blood Gas PEEP 5 cmH2O; Arterial Blood Gas Tidal Volume 400 ml; Arterial Blood Gas Vent Mode CMV; Arterial Blood Gas Ventilator rate 20 /MIN
[2024-01-08 04:44] LABS: Platelet Estimate Adequate (Adequate)
[2024-01-08 04:45] LABS: Anisocytosis 1+; Burr Cells 1+; Hypochromasia 1+; Schistocytes None Seen
[2024-01-08] MEDS: SODIUM CHLORIDE 0.9% IV 500 ML 999 ML IV CONT (06:00)
[2024-01-08] MEDS: PHENYTOIN SODIUM INJ 100 MG/2 ML VIAL (*BKC) IV PUSH (06:36)
[2024-01-08] MEDS: CENTRAL LINE FLUSH 10 ML IV PUSH (06:36)
[2024-01-08 06:47] LABS: Reflex Lactic Acid Yes or No Add Lactic
[2024-01-08 08:05] LABS: Glucose Point of Care 145 mg/dl (65-105)
--- NOTE | 2024-01-08 08:29 | WPDINTPN ---
Progress Note: A&P Assessment and Plan (1) Acute respiratory failure: Code(s): J96.00 - Acute respiratory failure, unspecified whether with hypoxia or hypercapnia Status: Acute Assessment and Plan: 01/06: Patient was intubated for impending respiratory failure secondary to agonal breathing during dialysis, she was hypotensive chelsie head of the bed was put down, patient rolled her eyes at the back and had agonal breathing, patient had a pulse but intubated patient secondary to Impending respiratory failure -currently on CMV mode of ventilation, peep of 5, 40% FiO2 -chest x-ray and ABGs reviewed -sedated with fentanyl Versed infusion, maintain RASS of 0 to-2, daily SBT and SAT (2) Sepsis: Code(s): A41.9 - Sepsis, unspecified organism Status: Acute Assessment and Plan: Septic shock likely related to secondary to perforated gastric ulcer and peritonitis -hemodialysis patient, has received adequate IV fluids -patient on bicarb infusion, will discontinue -01/06: Vasopressor requirements have increased, patient on norepinephrine and vasopressin, continue to maintain MAP > 65 mmHg for adequate end organ perfusion -increase in lactic acidosis, patient was given 500 mL IV fluid bolus, will add albumin for intravascular volume repletion -Continue Meropenem (01/03) -12/30: blood cultures are negative to date 01/05: Repeat blood cultures: Preliminary results are negative -01/02: Abscess culture growing Yeast, started on micafungin (01/05) -01/07: CT scan of the abdomen and pelvis showed likely persistent perforated gastric ulcer with fluid and gas throughout the abdomen and pelvis, bilateral hydronephrosis on lymphadenopathy and superior mediastinum and more prominently in the abdomen and pelvis suspicious for metastatic disease of unknown primary. -Dr. Mckee, surgeon, discussed treatment options with the patient's family and the overall prognosis, family wishes to withdraw care and make her comfort measures. (3) Perforated gastric ulcer: Code(s): K25.5 - Chronic or unspecified gastric ulcer with perforation Status: Acute Assessment and Plan: status post exploratory laparotomy, extensive washout, repair of perforated gastric ulcer with Ari patch S/p MARIAMA drains management per General surgery CT scan shows widespread lymphadenopathy with peritoneal masses suggestive of metastatic disease, CONSULT HEME/ONC (4) Encephalopathy: Code(s): G93.40 - Encephalopathy, unspecified Status: Acute Assessment and Plan: likely toxic metabolic encephalopathy most likely secondary to infection, acute kidney injury/uremia, possibly hyperglycemia -head CT done on 01/03 was negative - ABG reviewed - TSH normal -ammonia levels within normal limits - at this time patient is awake enough to protect her airway but may need intubation if status worsens -currently intubated and sedated (5) CATHI (acute kidney injury): Code(s): N17.9 - Acute kidney failure, unspecified Status: Acute Assessment and Plan: - patient likely has underlying chronic kidney disease. -appreciate Nephrology evaluation recommendation, -status post dialysis catheter with General surgery -nephrology to schedule dialysis -hyperkalemia has resolved 01/06: Will dialysis today as patient is on 2 vasopressors 01/03: Renal ultrasound showed IMPRESSION: Moderate bilateral hydronephrosis Increased echogenicity of the renal parenchyma suggesting bilateral chronic renal disease (6) Ileus: Code(s): K56.7 - Ileus, unspecified Status: Acute Assessment and Plan: -patient appears to have developed postop ileus -NG tube to low intermittent suction -NPO for now -01/05: obstructive series -no evidence of obstruction or free air, nonspecific bowel gas pattern -01/06: Trickle tube feeds at 10 mL/hour was started -hold tube feeds with worsening septic shock (7) DVT (deep venous thrombosis
[2024-01-08] MEDS: NOREPINEPHRINE 8 MG/D5W 250 ML 8 MG/250 ML BAG 31.88 MG IV CONT (08:32)
[2024-01-08] MEDS: PANTOPRAZOLE SODIUM IV 40 MG VIAL IV PUSH (08:33)
[2024-01-08] MEDS: ALBUMIN HUMAN 25% 25 GM/100 ML 100 ML IVPB (08:33)
[2024-01-08] MEDS: MINERAL OIL/WHITE PETROLATUM OINTMENT 1 APPLIC EACH EYE (08:33)
[2024-01-08 09:01] LABS: Lactic Acid 7.2 mmol/L (0.7-2.0)
[2024-01-08 09:16] LABS: Phenytoin Dilantin 5 ug/mL (10-20)
[2024-01-08] MEDS: MICAFUNGIN SODIUM 100 MG in SODIUM CHLORIDE 0.9% IV 100 ML IVPB (10:15)
--- NOTE | 2024-01-08 11:30 | PCFNICU ---
ICU Rounding Note: Pt current nutrition is Nepro at 10 ml/hr. Last recorded weight is 76 kg, up from 68.7 kg on admit. Bowel Motility:+Bm reported 01/06 Labs Reviewed: Cr 0.5,Alb 3.2 Meds Noted:Lovenox, [place], Versed, Fentanyl, Levophed, Vancomycin, Vasopressin, Heparin. Skin: WNL Additional Notes: Code Valdemar called 01/06, patient was intubated. Tube feedings are on hold at this time. CT scan ordered. During ICU rounds today, code status/plan of care discussed with family today. Following daily in ICU rounds. RD will monitor, weight, labs, skin, diet orders every Saturday and Saturday.
[2024-01-08 12:08] LABS: Albumin 1.8 g/dL (3.8-4.8); Alpha 1 Globulin 0.8 g/dL (0.2-0.3); Alpha 2 Globulin 0.9 g/dL (0.5-0.9); Beta 1 Globulin 0.3 g/dL (0.4-0.6); Gamma Globulin 0.3 g/dL (0.8-1.7)
--- NOTE | 2024-01-08 12:34 | PM.PNGS ---
Progress Note: A&P Assessment and Plan (1) Perforated gastric ulcer: Code(s): K25.5 - Chronic or unspecified gastric ulcer with perforation Status: Acute Assessment and Plan: Worsening sepsis with elevated lactic acid and WBC count up to 40,[address] scan chest/abd/pelvis ordered today and showed likely persistent perforated gastric ulcer with fluid and gas throughout the abdomen/pelvis, jovita. hydronephrosis, and lymphadenopathy in superior mediastinum and more prominently in the abdomen/pelvis suspicious for metastatic disease of unknown primary. Dr. Mckee discussed treatment options with the patient's family. She has an overall poor prognosis and evidence of metastatic cancer, and the family wishes to withdraw care and make her comfort measures. Plan is to proceed with comfort care today. Plan I have discussed the patient's case and plan of care with Dr. Mckee. Subjective Subjective Date/Time Seen: 01/08/24 08:34 Interval history: Patient intubated and sedated in the ICU. She is on two vasopressors. She became hypotensive during dialysis yesterday and had respiratory distress requiring intubation. Dialysis was stopped. WBC up to 40k today and lactic acid up to 5.7. CT chest/abd/pelvis ordered by Hospitalist Physician this morning. Exam Const: General: ill appearing Orientation/consciousness: Other orientation findings (Intubated and sedated) GI: Inspection: distended and incision (Dry and intact) GI Palp: Yes Soft to palpation and Yes Other GI palpation findings present (Exam limited as patient is sedated) Auscultation: Hypoactive bowel sounds present Urinary Catheter: Urinary Catheter: patent and draining Objective Data Vital Signs Vital Signs: Vital Signs - 24 hr 01/07/24 12:45 01/07/24 12:52 01/07/24 13:03 Temperature Pulse Rate 112 H 105 H 103 H Respiratory Rate Blood Pressure 96/63 L 96/63 L 100/68 Pulse Oximetry Oxygen Delivery Oxygen Flow Rate Fraction of Inspired Oxygen 01/07/24 13:16 01/07/24 14:08 01/07/24 13:45 Temperature Pulse Rate 103 H 112 H 116 H Respiratory Rate 22 H Blood Pressure 106/67 72/47 L Pulse Oximetry Oxygen Delivery Oxygen Flow Rate Fraction of Inspired Oxygen 01/07/24 14:00 01/07/24 14:15 01/07/24 14:35 Temperature Pulse Rate 112 H 115 H 113 H Respiratory Rate Blood Pressure 149/89 H 129/89 111/73 Pulse Oximetry Oxygen Delivery Oxygen Flow Rate Fraction of Inspired Oxygen 01/07/24 14:48 01/07/24 14:00 01/07/24 14:00 Temperature Pulse Rate 108 H 112 H 112 H Respiratory Rate 24 H Blood Pressure 101/64 149/89 H Pulse Oximetry 98 Oxygen Delivery Oxygen Flow Rate Fraction of Inspired Oxygen 01/07/24 14:00 01/07/24 15:01 01/07/24 13:50 Temperature Pulse Rate 109 H 109 H Respiratory Rate 24 H Blood Pressure 149/89 H 86/66 L Pulse Oximetry 98 Oxygen Delivery Oxygen Flow Rate Fraction of Inspired Oxygen 100 01/07/24 14:00 01/07/24 15:18 01/07/24 15:25 Temperature Pulse Rate 113 H 107 H 108 H Respiratory Rate 21 H Blood Pressure 64/56 L Pulse Oximetry 98 Oxygen Delivery Mechanical Ventilation Oxygen Flow Rate Fraction of Inspired Oxygen 100 01/07/24 15:31 01/07/24 15:32 01/07/24 13:50 Temperature Pulse Rate 110 H Respiratory Rate Blood Pressure 100/70 Pulse Oximetry 98 Oxygen Delivery Mechanical Ventilation Oxygen Flow Rate Fraction of Inspired Oxygen 60 100 01/07/24 15:30 01/07/24 15:32 01/07/24 15:48 Temperature Pulse Rate 109 H Respiratory Rate Blood Pressure 105/72 Pulse Oximetry 100 Oxygen Delivery Mechanical Ventilation Oxygen Flow Rate Fraction of Inspired Oxygen 60 60 01/07/24 13:00 01/07/24 13:00 01/07/24 13:24 Temperature 97.8 F Pulse Rate 102 H 108 H Respiratory Rate 15 Blood Pressure 100/68 103/58 L Pulse Oximetry 100 Oxygen Delivery Oxygen Flow
[2024-01-08] MEDS: LORazepam INJ (*CRX) 2 MG/ML VIAL IV PUSH (13:29)
[2024-01-08] MEDS: MORPHINE SULFATE INJ (*CRX) 10 MG/ML AMP 5 MG IV PUSH (13:29)
--- NOTE | 2024-01-08 14:06 | PM.IMPN ---
Progress Note: A&P Assessment and Plan (1) Acute respiratory failure: Code(s): J96.00 - Acute respiratory failure, unspecified whether with hypoxia or hypercapnia Status: Acute (2) Sepsis: Code(s): A41.9 - Sepsis, unspecified organism Status: Acute Assessment and Plan: (3) Perforated gastric ulcer: Code(s): K25.5 - Chronic or unspecified gastric ulcer with perforation Status: Acute (4) Encephalopathy: Code(s): G93.40 - Encephalopathy, unspecified Status: Acute Assessment and Plan: (5) CATHI (acute kidney injury): Code(s): N17.9 - Acute kidney failure, unspecified Status: Acute (6) Ileus: Code(s): K56.7 - Ileus, unspecified Status: Acute (7) DVT (deep venous thrombosis): Code(s): I82.409 - Acute embolism and thrombosis of unspecified deep veins of unspecified lower extremity Status: Acute (8) Metabolic acidosis: Code(s): E87.20 - Acidosis, unspecified Status: Acute Assessment and Plan: (9) Seizure disorder: Code(s): G40.909 - Epilepsy, unspecified, not intractable, without status epilepticus Status: Chronic Assessment and Plan: continue phenytoin (10) Hypoglycemia: Code(s): E16.2 - Hypoglycemia, unspecified Status: Acute (11) Metastasis: Code(s): C79.9 - Secondary malignant neoplasm of unspecified site Status: Acute Assessment and Plan: Plan 68-year-old female who presented with nausea and vomiting and abdominal pain on 12/31/2023. CT scan showed free intraperitoneal gas consistent with perforated viscus. Patient was taken to the OR on 12/31/2023 with findings of perforated gastric ulcer which was repaired with Ari patch. Admitted with sepsis related to above and CATHI. History of seizure disorder on Dilantin and lamotrigine Patient continues on broad-spectrum antibiotics. patient Continued to decline developed an abscess for which drain was placed on 01/03/2024. Renal was consulted for worsening renal function and acidosis and has been started on dialysis 01/06/2024. Patient was hypotensive likely related to sepsis and hence was transferred to ICU on 01/05/2024. Patient needing vasopressors. CT scan showed widespread lymphadenopathy with peritoneal masses suggestive of metastatic disease CATHI renal ultrasound showing moderate bilateral hydronephrosis general surgery has place temporary dialysis catheter to initiate hemodialysis. hemodialysis initiated 01/06/2024 1. Acute respiratory failure: Patient currently intubated and sedated Mechanical ventilator management as per ICU Patient's family had a discussion with systems manager, they wished to withdraw care and transition to comfort measures 2. Sepsis/septic shock: Septic shock related to perforated gastric ulcer and peritonitis Patient currently being treated with meropenem and micafungin Pressor support as per systems manager 3. Perforated gastric ulcer with peritonitis: General surgery following status post exploratory laparotomy, extensive washout, repair of perforated gastric ulcer with Ari patch S/p MARIAMA drains management per General surgery CT scan shows widespread lymphadenopathy with peritoneal masses suggestive of metastatic disease 4. Acute kidney injury: Nephrology following Dialysis catheter was placed by General surgery Was started on dialysis on 01/06 5. DVT view of possible PE: Continue with heparin drip 6. Code status: Do not resuscitate, plan to transition to comfort measures with withdrawal of care later today 7. Disposition: Extremely poor prognosis, currently in ICU, will move her out once transition to comfort measures Time Spent With Patient Time with patient: 15 - 25 minutes Subjective Date/time seen: 01/08/24 14:06 Interval history: Patient remains intubated Review of Systems Review of Systems: ROS unobtainable: Yes unobtainable due to endot
--- NOTE | 2024-01-08 14:34 | PM.DDS ---
Discharge Summary Date and Time Date of : 01/08/24 Time of : 14:21 Probable Cause of Probable Cause of : Cardiorespiratory arrest Possible undiagnosed metastatic disease Septic shock Perforated gastric ulcer with peritonitis Acute kidney injury requiring dialysis DVT with possible PE Summary Hospital Course: 68-year-old female who presented with nausea and vomiting and abdominal pain on 12/31/2023. CT scan showed free intraperitoneal gas consistent with perforated viscus. Patient was taken to the OR on 12/31/2023 with findings of perforated gastric ulcer which was repaired with Ari patch. Admitted with sepsis related to above and CATHI. History of seizure disorder on Dilantin and lamotrigine Patient continues on broad-spectrum antibiotics. patient Continued to decline developed an abscess for which drain was placed on 01/03/2024. Renal was consulted for worsening renal function and acidosis and has been started on dialysis 01/06/2024. Patient was hypotensive likely related to sepsis and hence was transferred to ICU on 01/05/2024. Patient needing vasopressors. CT scan showed widespread lymphadenopathy with peritoneal masses suggestive of metastatic disease CATHI renal ultrasound showing moderate bilateral hydronephrosis general surgery has place temporary dialysis catheter to initiate hemodialysis. hemodialysis initiated 01/06/2024 After discussion with family, decision was made to transition her to comfort measures and withdrawal of care. Patient peacefully at 2:21 p.m. on 01/08/2024.
[2024-01-09 15:23] LABS: CA-125 160 U/mL (<35)
[2024-01-12 15:38] LABS: Lamotrigine Lamictal 2.2 mcg/mL (2.5-15.0)
--- NOTE | 2024-01-29 12:07 | PDCODEBLUE ---
Annalise Hickey Note Code [facility] Note Time Arrived at Code [facility]: 1344 Initial Rhythm on Arrival: Patient had a sinus rhythm, rolled her eyes back and was agonal, never lost a pulse, annalise hickey was called so we could intubate the patient emergently Airway Management: Pt intubated during resuscitation Chest Compressions: Initiated upon arrival Result of Annalise Hickey: Pt transferred to ICU Cardiac Rhythm Post Code: Sinus rhythm Code Blue Summary: Impending respiratory failure secondary agonal breathing during dialysis and being hypotensive. Patient did not lose a pulse, though brief chest compressions were started but was stopped as soon as he palpated a pulse. Annalise hickey was called for impending respiratory failure and for emergent intubation.
== END 2024-01-08 14:21 | disposition expired | DRG 853 ==
LOC: ANHED 11:23 → ANHSURGERY 12:12 → ANH2MED 16:13 → ANHICU 01-07 11:07 → ANH2MED 01-09 09:55 → ANHICU 01-09 09:55 → ANHIMU 01-09 09:55
PROVIDERS: Internal Medicine; Internal Medicine Nephrology; Nurse Practitioner; Nurse Practitioner Family; Student in an Organized Health Care Education/Training Program; Admitting Provider Surgery; Emergency Provider Family Medicine; PCP Family Medicine; Visit Provider Internal Medicine
PROC: 0DU607Z Supplement Stomach with Autologous Tissue Substitute, Open Approach (ICD-10-PCS; CPT 49000; principal; 2023-12-31 13:00)
DX: A41.9 Sepsis, unspecified organism (principal); G92.8 Other toxic encephalopathy; K65.1 Peritoneal abscess; K25.5 Chronic or unspecified gastric ulcer with perforation; T81.12XA Postprocedural septic shock, initial encounter; J96.00 Acute respiratory failure, unspecified whether with hypoxia or hypercapnia; N17.9 Acute kidney failure, unspecified; N13.30 Unspecified hydronephrosis; I82.442 Acute embolism and thrombosis of left tibial vein; I82.452 Acute embolism and thrombosis of left peroneal vein; C78.6 Secondary malignant neoplasm of retroperitoneum and peritoneum; K91.89 Other postprocedural complications and disorders of digestive system; K56.7 Ileus, unspecified; E87.20 Acidosis, unspecified; B37.89 Other sites of candidiasis; R59.0 Localized enlarged lymph nodes; G40.909 Epilepsy, unspecified, not intractable, without status epilepticus; M81.0 Age-related osteoporosis without current pathological fracture; W07.XXXA Fall from chair, initial encounter; N18.9 Chronic kidney disease, unspecified; E16.2 Hypoglycemia, unspecified; C80.1 Malignant (primary) neoplasm, unspecified
CPT/HCPCS: 31500; 36415; 36600; 70450; 71045; 71250; 72100; 73521; 74019; 74176; 74240; 75989; 76775; 78582; 80048; 80053; 80175; 80185; 81001; 81050; 82140; 82375; 82550; 82570; 82607; 82728; 82746; 82803; 82805; 82948; 83050; 83540; 83550; 83605; 83690; 83735; 84100; 84145; 84155; 84156; 84165; 84166; 84300; 84443; 84540; 85025; 85027; 85610; 85652; 85730; 85999; 86140; 86304; 86706; 86850; 86900; 86901; 87040; 87070; 87075; 87086; 87088; 87106; 87205; 87340; 87641; 92950; 93005; 93306; 94002; 94003; 96361; 96365; 96367; 96375; 97161; 97165; 99285; A9270; A9540; A9558; C1729; C1751; C1752; C1769; C9113; G0257; J0330; J1100; J1165; J1170; J1642; J1644; J1650; J1741; J1815; J1836; J2060; J2185; J2248; J2250; J2270; J2405; J2543; J2704; J3010; J3360; J7030; J7070; J7120; P9047